=== PATIENT | female | born 1990 | race Caucasian/White ===

== ENCOUNTER 2017-05-20 12:17 | Emergency (ER) | payer MEDICAID, OTHER ==
[2017-05-20 12:38] VITALS: BP 128/79
[2017-05-20] MEDS ORDERED: LIDOCAINE 1% INJ-PF (10 MG/ML) 30 ML SDV NEB ONE (12:58)
[2017-05-20] MEDS ORDERED: LIDOCAINE 5% (700 MG) TRANSDERMAL ADH..PATCH TP ONE (13:01)
--- NOTE | 2017-05-20 13:04 | ER Document Report ---
ED Respiratory Problem - General Chief Complaint: Cough Stated Complaint: COUGH Time Seen by Provider: 05/20/17 12:51 Mode of Arrival: Ambulatory Information source: Patient Notes: 27-year-old female presents to ED for painful cough 3 days. She denies any fever. Respirations even and nonlabored it on assessment. She has a history of asthma has been using her albuterol more frequently. She just saw her PCP and was given a steroid shot and is on prednisone at home. TRAVEL OUTSIDE OF THE [place] IN LAST 30 DAYS: No - HPI Patient complains to provider of: Asthma, Cough, Short of breath Onset: Other - 3 days Duration: Continuous, Worse/persistent Quality of pain: Achy, Burning - Back pain Severity: Moderate Pain Level: 3 Context: Hx asthma Cough: Nonproductive Sputum amount: None Associated symptoms: Cough, Hurts to breathe, Muscle spasms - Low back Similar symptoms previously: Yes Recently seen / treated by doctor: Yes - Related Data Allergies/Adverse Reactions: latex [Latex] Allergy (Severe, Verified 11/10/12 21:42) Shellfish * [Shellfish] Allergy (Severe, Verified 11/10/12 21:42) Home Medications: Current Home Medications Beclomethasone Dipropionate [Qvar] 2 puff IH BID 05/20/17 [History] Past Medical History - General Information source: Patient - Social History Smoking Status: Never Smoker Cigarette use (# per day): No Chew tobacco use (# tins/day): No Smoking Education Provided: No Frequency of alcohol use: None Drug Abuse: None 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 denies: Arthritis, CAD, COPD, CVA, Hyperlipidemia, Malignancy Patient has suicidal ideation: No Patient has homicidal ideation: No - Past Medical History Cardiac Medical History: Reports: None Pulmonary Medical History: Reports: Hx Asthma EENT Medical History: Reports: None Neurological Medical History: Reports: None Endocrine Medical History: Reports: None Renal/ Medical History: Reports: None Malignancy Medical History: Reports: None GI Medical History: Reports: None Musculoskeltal Medical History: Reports Hx Musculoskeletal Trauma Skin Medical History: Reports Hx MRSA - arm Psychiatric Medical History: Reports: None Traumatic Medical History: Reports: None Infectious Medical History: Reports: Hx MRSA Past Surgical History: Reports: Hx Dilation and Curettage - Immunizations Immunizations up to date: Yes Hx Diphtheria, Pertussis, Tetanus Vaccination: Yes Review of Systems - Review of Systems Constitutional: No symptoms reported EENT: No symptoms reported Cardiovascular: No symptoms reported Respiratory: Cough, Short of breath, Wheezing Gastrointestinal: No symptoms reported Genitourinary: No symptoms reported Female Genitourinary: No symptoms reported Musculoskeletal: No symptoms reported Skin: No symptoms reported Hematologic/Lymphatic: No symptoms reported Neurological/Psychological: No symptoms reported -: Yes All other systems reviewed and negative Physical Exam - Vital signs Vitals: Temp Pulse Resp BP Pulse Ox 98.4 F 111 H 20 128/79 H 98 05/20/17 12:33 05/20/17 12:33 05/20/17 12:33 05/20/17 12:33 05/20/17 12:33 Interpretation: Normal - General General appearance: Appears well, Alert - HEENT Head: Normocephalic, Atraumatic Eyes: Normal Pupils: PERRL - Respiratory Respiratory status: No respiratory distress Chest status: Nontender Breath sounds: Normal, Nonproductive cough Chest palpation: Normal - Cardiovascular Rhythm: Regular Heart sounds: Normal auscultation Murmur: No - Abdominal Inspection: Normal Distension: No distension Bowel sounds: Normal Tenderness: Nontender Organomegaly: No organomegaly - Back Back: Normal, Nontender - Extremities General upper extremity: Normal inspection, Nontender, Normal color, Normal ROM , Normal temperature General lower extremity: Normal inspection, Nontender, Normal color, Normal ROM , Normal temperature, Normal weight bearing. No: Kofi's sign - Neurological Neuro grossly intact: Yes Cognition: Normal Orientation: AAOx4 Genoveva Coma Scale Eye Opening: Spontaneous [place] Coma Scale Verbal: Oriented [place] Coma Scale Motor: Obeys Commands [place] Coma Scale Total: 15 Speech: Normal Motor strength normal: LUE, RUE, LLE, RLE Sensory: Normal - Psychological Associated symptoms: Normal affect, Normal mood - Skin Skin Temperature: Warm Skin Moisture: Dry Skin Color: Normal Course - Re-evaluation Re-evalutation: 05/20/17 21:13 X-ray discussed with patient patient was treated with lidocaine nebulizer for her and Lidoderm patch for her back pain. Patient discharged home instructions to use Aspercreme to her back pain. She was discharged home with a Tessalon Perles prescription for her cough. - Vital Signs Vital signs: Temp Pulse Resp BP Pulse Ox 98.4 F 111 H 20 128/79 H 98 05/20/17 12:33 05/20/17 12:33 05/20/17 12:33 05/20/17 12:33 05/20/17 12:33 - Diagnostic Test Radiology reviewed: Image reviewed, Reports reviewed Discharge - Discharge Clinical Impression: Cough Condition: Stable Disposition: HOME, SELF-CARE Additional Instructions: You were seen today for a cough that is painful. We given lidocaine nebulizer in the emergency room and she stated it helped while it was running. Tessalon Perles You have received a prescription for Tessalon Perles (benzonatate). This is a non-narcotic medicine for relief of cough. It usually works in about 15- 20 minutes and lasts around four hours. Tessalon Perles should be swallowed. They should not be chewed or dissolved in the mouth (this can produce temporary numbing of the mouth and choking can occur). If you develop any adverse effects such as wheezing, shortness of breath, hives, rash, itching, or lightheadedness, please return at once. FOLLOW-UP CARE: If you have been referred to a physician for follow-up care, call the physician s office for an appointment as you were instructed or within the next two days. If you experience worsening or a significant change in your symptoms, notify the physician immediately or return to the Emergency Department at any time for re-evaluation. Prescriptions: Benzonatate [Tessalon Perle 100 mg Capsule] 100 mg PO Q8HP PRN #20 cap PRN Reason: Forms: Elevated Blood Pressure, Return to Work Referrals: HUGO NAVA MD [Primary Care Provider] - Follow up as needed
--- NOTE | 2017-05-20 13:58 | RADIOLOGY REPORT (SQ) ---
EXAM DESCRIPTION: CHEST PA/LAT COMPLETED DATE/TIME: 05/20/2017 1:49 pm REASON FOR STUDY: cough COMPARISON: 06/15/2012 EXAM PARAMETERS: NUMBER OF VIEWS: two views TECHNIQUE: Digital Frontal and Lateral radiographic views of the chest acquired. RADIATION DOSE: NA LIMITATIONS: none FINDINGS: LUNGS AND PLEURA: No opacities, masses or pneumothorax. No pleural effusion. MEDIASTINUM AND HILAR STRUCTURES: No masses or contour abnormalities. HEART AND VASCULAR STRUCTURES: Heart normal size. No evidence for failure. BONES: No acute findings. HARDWARE: None in the chest. OTHER: No other significant finding. IMPRESSION: NO SIGNIFICANT RADIOGRAPHIC FINDING IN THE CHEST. TECHNICAL DOCUMENTATION: JOB ID: [id number] [employer]- All Rights Reserved
== END 2017-05-20 15:45 | disposition home or self-care (01) ==
LOC: ER 12:17
DX: R05 Cough (principal); J45.909 Unspecified asthma, uncomplicated; R06.02 Shortness of breath; R07.1 Chest pain on breathing; M62.830 Muscle spasm of back; M54.9 Dorsalgia, unspecified; Z91.040 Latex allergy status; Z91.013 Allergy to seafood; Z86.14 Personal history of Methicillin resistant Staphylococcus aureus infection
CPT/HCPCS: 99283; 71020; J3490 ×2

== ENCOUNTER 2018-01-19 11:17 | Emergency (ER) | payer MEDICAID, OTHER ==
[2018-01-19] MEDS ORDERED: DEXAMETHASONE SOD PHOS INJ 10 MG/1 ML VIAL IM ONE (12:36)
[2018-01-19] MEDS ORDERED: KETOROLAC TROMETHAMINE 60 MG/2 ML SDV IM ONE (12:36)
--- NOTE | 2018-01-19 12:40 | ER Document Report ---
ED Neck/Back Problem - General Chief Complaint: Low Back Pain Stated Complaint: BACK INJURY Time Seen by Provider: 01/19/18 12:06 Mode of Arrival: Ambulatory Information source: Patient Notes: 28-year-old female presents to ED for complaint of back to her lower back. She states it is been hurting for about 3 days. 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 She states her pain radiates down both legs worse on the right with pain to SI joint. Patient is able to walk with the even steady gait. Pupils equal react to light answers in full sentences no acute distress except for when she tries to get up and down. She denies any saddle anesthesia or loss control of bowel bladder loss of sensation or control of lower extremities. She states the pain is down both legs but right now is worse on the right TRAVEL OUTSIDE OF THE [place] 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 was demonstrating when she was tumbling when she injured herself Onset: Sudden Timing: Still present Quality of pain: Sharp, Throbbing Severity: Moderate Pain Level: 4 Context: Fall/near-fall - Landing on her coccyx Recent injury: Yes Associated symptoms: Lower back pain - Pain worse normal Exacerbated by: Movement of trunk - Related Data Allergies/Adverse Reactions: latex [Latex] Allergy (Severe, Verified 01/19/18 11:20) Shellfish * [Shellfish] Allergy (Severe, Verified 01/19/18 11:20) Past Medical History - General Information source: Patient - Social History Smoking Status: Never Smoker Cigarette use (# per day): No Chew tobacco use (# tins/day): No Smoking Education Provided: No Frequency of alcohol use: None Drug Abuse: None 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 denies: Arthritis, CAD, COPD, CVA, Hyperlipidemia, Malignancy Patient has suicidal ideation: No Patient has homicidal ideation: No - Medical History Medical History: Negative - Past Medical History Cardiac Medical History: Reports: None Pulmonary Medical History: Reports: Hx Asthma EENT Medical History: Reports: None Neurological Medical History: Reports: None Endocrine Medical History: Reports: None Renal/ Medical History: Reports: None Malignancy Medical History: Reports: None GI Medical History: Reports: None Musculoskeltal Medical History: Reports Hx Musculoskeletal Deformity, Reports Hx Musculoskeletal Trauma Skin Medical History: Reports None, Reports Hx MRSA - arm Psychiatric Medical History: Reports: None Traumatic Medical History: Reports: None Infectious Medical History: Reports: Hx MRSA Past Surgical History: Reports: Hx Dilation and Curettage, Hx Gynecologic Surgery - D&C - Immunizations Immunizations up to date: Yes Hx Diphtheria, Pertussis, Tetanus Vaccination: Yes Review of Systems - Review of Systems Constitutional: No symptoms reported EENT: No symptoms reported Cardiovascular: No symptoms reported Respiratory: No symptoms reported Gastrointestinal: No symptoms reported Genitourinary: No symptoms reported Female Genitourinary: No symptoms reported Musculoskeletal: Back pain, Muscle pain, Muscle stiffness Skin: No symptoms reported Hematologic/Lymphatic: No symptoms reported Neurological/Psychological: No symptoms reported -: Yes All other systems reviewed and negative Physical Exam - Vital signs Vitals: Temp Pulse Resp BP Pulse Ox 97.7 F 100 14 114/69 99 01/19/18 11:22 01/19/18 11:22 01/19/18 11:22 01/19/18 11:22 01/19/18 11:22 Interpretation: Normal - General General appearance: Appears well, Alert - HEENT Head: Normocephalic, Atraumatic Eyes: Normal Pupils: PERRL - Respiratory Respiratory status: No respiratory distress Chest status: Nontender Breath sounds: Normal Chest palpation: Normal - Cardiovascular Rhythm: Regular Heart sounds: Normal auscultation Murmur: No - Abdominal Inspection: Normal Distension: No distension Bowel sounds: Normal Tenderness: Nontender Organomegaly: No organomegaly - Back Back: Normal, Tender, Vertebra tenderness, Other - Pain worse at right SI joint. No: Deformity/step-off, CVA tenderness, Scars, Scoliosis, Wounds Notes: Denies loss of control of bowel or bladder denies saddle anesthesia denies loss of control of lower extremities or loss of sensation to lower extremities. - Extremities General upper extremity: Normal inspection, Nontender, Normal color, Normal ROM , Normal temperature General lower extremity: Normal inspection, Nontender, Normal color, Normal ROM , Normal temperature, Normal weight bearing. No: Kofi's sign - Neurological Neuro grossly intact: Yes Cognition: Normal Orientation: AAOx4 Shirley Coma Scale Eye Opening: Spontaneous Shirley Coma Scale Verbal: Oriented Shirley Coma Scale Motor: Obeys Commands Genoveva Coma Scale Total: 15 Speech: Normal Motor strength normal: LUE, RUE, LLE, RLE Sensory: Normal - Psychological Associated symptoms: Normal affect, Normal mood - Skin Skin Temperature: Warm Skin Moisture: Dry Skin Color: Normal Course - Re-evaluation Re-evalutation: 01/19/18 14:44 X-ray shows scoliosis and mild degenerative disc disease. A written report of the x-ray was given to patient to follow-up with her primary doctor [facility]. She was instructed to please have them treatment command a back specialist for her back pain as she is medicated needs to go through her primary doctor. She was treated with Toradol Decadron in the emergency room and will be given a Lidoderm patch in the emergency room. She was also instructed on use of Aspercreme at home. She was given instructions on ice and warm packs and back exercises for her back pain. - Vital Signs Vital signs: Temp Pulse Resp BP Pulse Ox 98.8 F 83 16 104/67 97 01/19/18 15:12 01/19/18 15:12 01/19/18 15:12 01/19/18 15:12 01/19/18 15:12 - Diagnostic Test Radiology reviewed: Image reviewed, Reports reviewed Discharge - Discharge Clinical Impression: Low back pain Qualifiers: Chronicity: acute Back pain laterality: bilateral Sciatica presence: with sciatica Sciatica laterality: sciatica of right side Qualified Code(s): M54.41 - Lumbago with sciatica, right side Condition: Stable Disposition: HOME, SELF-CARE Additional Instructions: LOW BACK PAIN: Three out of every four people will have an episode of disabling back pain during their lifetime. Most commonly the pain is due to straining of the muscles and ligaments in the low back. Usual treatment includes: (1) Rest on a firm surface. Avoid lying on your stomach. (2) Ice pack the painful area. After a few days, gentle heat may be used intermittently to relax the area, or ice packs can be continued. (3) Medication may be needed -- muscle relaxers and antiinflammatory medicines are commonly used. (4) As the back improves, exercises are prescribed to strengthen the back and abdominal muscles. Your doctor will advise you on the proper care for your back at each stage in your recovery. You may be better in a few days -- or healing may take several weeks. If new symptoms of a "herniated disc" (radiation of pain, numbness, or tingling down the back of the leg or weakness in the leg) occur, you should be re-examined. Further testing may be necessary. Toradol Injection You have been given an injection of ketorolac tromethamine (Toradol). This is an excellent, safe drug for pain control. It also has potent antiinflammatory action. You should have significant pain relief within about one hour. Toradol is not addicting and is non-sedating. It does not interfere with driving or work. Call or return if you develop itching, hives, shortness of breath, or rash. STEROID MEDICATION: You have been given an injection of medicine of the cortisone/steroid class. This medication is used to control inflammation or allergy. It is often continued as a pill for a short period of time, until the acute process subsides. There are usually no side effects from short-term use of cortisone-like medications. Some persons feel an increased sense of well-being and are not sleepy at bedtime. Long-term use of cortisone medications is best avoided, unless required for a severe condition. If your condition does not remit, or relapses after the course of corticosteroid medication, you should consult your physician. Stretching Exercises for the Back The physician has recommended that you begin stretching exercises for your back. These are often used even while the back is painful. However, you should notify the physician if the activities seem to increase your pain. PELVIC TILT: Lie flat on your back with knees bent. Tighten your stomach and buttock muscles so it flattens your lower back against the floor. Hold 10 seconds. Repeat 10 times, twice daily. KNEE RAISE: Lying on the back with knees bent, raise one knee to your chest, then the other. Hold both knees against the chest 10 seconds, then lower one knee at a time. Repeat 10 times, twice daily. PARTIAL TRUNK RAISE: Lie face down, arms at your sides. Keeping your waist on the floor, use your arms raise your chest up. Support yourself on your elbows for 30 seconds. Repeat twice daily, increasing the time to two minutes as you recover. MUSCLE RELAXERS: Muscle relaxing medications are usually prescribed for acute muscle spasm or injury to the neck and back. They are often combined with antiinflammatory pain medication for increased relief. You may stop the muscle relaxer when the pain and stiffness have improved. Start the medication again if spasms recur. Muscle relaxers may cause drowsiness, especially with the first dose. Do not operate machinery or drive while under the effects of the medication. Most muscle relaxers last up to 24 hours. Do not combine the medication with alcohol. ICE PACKS: Apply ice packs frequently against the painful area. Many different schedules are recommended, such as "20 minutes on, 20 minutes off" or "one hour ice, two hours rest." If you need to work, you may need to go longer between ice treatments. You should plan to have the area ice packed AT LEAST one fourth of the time. The ice should be applied over the wrap, tape, or splint, or over a layer of cloth -- not directly against the skin. Some ice bags have a built-in cloth and can be put directly on the skin. WARM PACKS: After approximately two days, apply gentle heat (such as a heating pad or hot water bottle) for about 20 to 30 minutes about every two hours -- at least four times daily. Warmth and elevation will help you make a more rapid recovery , and will ease the pain considerably. Do not use HOT heat, and never apply heat for longer than 30 minutes. The continuous heat can invisibly damage skin and muscles -- even when no burn is seen on the surface. Damaged muscles can make you MORE sore. FOLLOW-UP CARE: If you have been referred to a physician for follow-up care, call the physician s office for an appointment as you were instructed or within the next two days. If you experience worsening or a significant change in your symptoms, notify the physician immediately or return to the Emergency Department at any time for re-evaluation. Prescriptions: Cyclobenzaprine HCl [Flexeril 10 mg Tablet] 10 mg PO TIDP PRN #15 tab PRN Reason: Forms: Return to Work Referrals: [facility] [Provider Group] - Follow up as needed
[2018-01-19 13:03] LABS: APPEARANCE,URINE CLEAR; BILIRUBIN,URINE NEGATIVE (NEGATIVE); COLOR,URINE COLORLESS; GLUCOSE, URINE NEGATIVE (NEGATIVE); KETONES,URINE NEGATIVE (NEGATIVE); LEUKOCYTE ESTERASE,URINE NEGATIVE (NEGATIVE); NITRITE,URINE NEGATIVE (NEGATIVE); PROTEIN,URINE NEGATIVE (NEGATIVE); URINE SPECIFIC GRAVITY 1.006; UROBILINOGEN,URINE NEGATIVE mg/dL (<2.0)
--- NOTE | 2018-01-19 14:37 | RADIOLOGY REPORT (SQ) ---
EXAM DESCRIPTION: L SPINE WHOLE COMPLETED DATE/TIME: 01/19/2018 1:49 pm REASON FOR STUDY: pain low back radiates legs right SI tenderness COMPARISON: None. NUMBER OF VIEWS: Five views including obliques. TECHNIQUE: AP, lateral, oblique, and sacral radiographic images acquired of the lumbar spine. LIMITATIONS: None. FINDINGS: MINERALIZATION: Normal. SEGMENTATION: Normal. No transitional anatomy. ALIGNMENT: Minimal scoliosis. VERTEBRAE: Maintained height. No fracture or worrisome bone lesion. DISCS: Mild narrowing of the L4-5 and L5-S1 disc spaces. POSTERIOR ELEMENTS: Pedicles and facets are intact. No pars defect or posterior arch defects. HARDWARE: None in the spine. PARASPINAL SOFT TISSUES: Normal. PELVIS: Intact as visualized. No fractures or worrisome bone lesions. SI joints intact. OTHER: No other significant finding. IMPRESSION: Mild scoliosis. Mild degenerative disc changes. TECHNICAL DOCUMENTATION: JOB ID: [id number] [employer]- All Rights Reserved Reading location - IP/workstation name: [email or web address]
[2018-01-19] MEDS ORDERED: LIDOCAINE 5% (700 MG) TRANSDERMAL ADH..PATCH TP ONE (14:45)
[2018-01-19 15:19] VITALS: BP 104/67
== END 2018-01-19 15:19 | disposition home or self-care (01) ==
LOC: ER 11:17
DX: M54.41 Lumbago with sciatica, right side (principal); M79.604 Pain in right leg; M79.605 Pain in left leg; M53.3 Sacrococcygeal disorders, not elsewhere classified; J45.909 Unspecified asthma, uncomplicated
CPT/HCPCS: 99283; 96372; 81025; 81001; 72110; J1885; J3490; J1100

== ENCOUNTER 2018-05-14 07:34 | Day surgery (SDC) | payer MEDICAID ==
[2018-05-14 08:31] LABS: APPEARANCE,URINE SLIGHTLY-CLOUDY; BILIRUBIN,URINE NEGATIVE (NEGATIVE); COLOR,URINE YELLOW; GLUCOSE, URINE NEGATIVE (NEGATIVE); KETONES,URINE NEGATIVE (NEGATIVE); LEUKOCYTE ESTERASE,URINE NEGATIVE (NEGATIVE); NITRITE,URINE NEGATIVE (NEGATIVE); PROTEIN,URINE NEGATIVE (NEGATIVE); URINE SPECIFIC GRAVITY 1.019; UROBILINOGEN,URINE NEGATIVE mg/dL (<2.0)
[2018-05-14 08:53] LABS: HEMATOCRIT 38.5 % (36.0-47.0); HEMOGLOBIN 13.1 g/dL (12.0-15.5); MEAN CORPUSCULAR HEMOGLOBIN 30.7 pg (27.0-33.4); MEAN CORPUSCULAR VOLUME 90 fl (80-97); PLATELET COUNT 189 10^3/uL (150-450); RED BLOOD COUNT 4.27 10^6/uL (3.72-5.28); RED CELL DISTRIBUTION WIDTH 12.5 % (11.5-14.0); WHITE BLOOD COUNT 6.5 10^3/uL (4.0-10.5)
[2018-05-14] MEDS ORDERED: FAMOTIDINE INJ/PF 20 MG/2 ML SDV IV ONE (09:30)
[2018-05-14] MEDS ORDERED: METOCLOPRAMIDE HCL INJ/PF 10 MG/2 ML SDV ONE (09:30)
[2018-05-14] MEDS ORDERED: MIDAZOLAM 2 MG/2 ML INJ ONE ×2 (09:30→10:37)
[2018-05-14] MEDS ORDERED: ALBUTEROL SULFATE 0.083% NEB 2.5 MG/3 ML AMPUL NEB ONE (09:30)
[2018-05-14] MEDS ORDERED: ONDANSETRON HCL INJ/PF 4 MG/2 ML SDV IV PRN (10:07)
[2018-05-14] MEDS ORDERED: MORPHINE SULFATE 10 MG/ML INJ IV PRN (10:07)
[2018-05-14] MEDS ORDERED: PROMETHAZINE HCL INJ 25 MG/1 ML VIAL IV PRN ×2 (10:07)
[2018-05-14] MEDS ORDERED: FENTANYL CITRATE INJ/PF 100 MCG/2 ML AMPUL IV PRN ×3 (10:07)
[2018-05-14] MEDS ORDERED: DIPHENHYDRAMINE HCL 50 MG/ML VIAL IV PRN (10:07)
[2018-05-14] MEDS ORDERED: MEPERIDINE HCL/PF INJ 25 MG/1 ML DISP.SYRIN IV PRN (10:07)
[2018-05-14] MEDS ORDERED: ONDANSETRON HCL INJ/PF 4 MG/2 ML SDV ONE (10:37)
[2018-05-14] MEDS ORDERED: PROPOFOL INJ 200 MG/20 ML VIAL IV ONE (10:37)
[2018-05-14] MEDS ORDERED: LIDOCAINE 2% INJ-PF (100 MG/5 ML) SYRINGE ONE (10:37)
[2018-05-14] MEDS ORDERED: FENTANYL CITRATE INJ/PF 100 MCG/2 ML AMPUL ONE (10:37)
--- NOTE | 2018-05-14 11:21 | Operative Report ---
Operative Report DATE OF SURGERY: 05/14/18 PREOPERATIVE DIAGNOSIS: Missed AB POSTOPERATIVE DIAGNOSIS: Same OPERATION: Suction D&C SURGEON: NENO VAUGHN ANESTHESIA: GA TISSUE REMOVED OR ALTERED: Uterine contents COMPLICATIONS: None ESTIMATED BLOOD LOSS: 50 cc INTRAOPERATIVE FINDINGS: Sound to 9 cm before the case and 7 cm after the case PROCEDURE: Patient was taken the OR and placed in supine position. General anesthesia was induced. She is placed in dorsolithotomy position using Rodriguez stirrups. Her perineum and vagina were prepared and draped in sterile fashion. Her bladder was drained with a red rubber catheter. A weighted speculum was placed in the anterior lip cervix grasped with a tenaculum. The cervix was sounded to 9 cm before the case and 7 cm after the case. Cervix was easily dilated and size 10 suction curette was used to evacuate the uterine contents. A gentle sharp curettage at the end of the case revealed no return no retained products. All instruments were removed. She is placed back in supine position taken recovery in stable condition. The specimen is sent fresh to pathology for chromosomes.
[2018-05-14] MEDS ORDERED: RINGERS SOLUTION,LACTATED 1,000 ML IV PRN (11:30)
[2018-05-14] MEDS ORDERED: OXYCODONE-ACETAMINOPHEN 5-325 MG TABLET PO PRN ×2 (11:31→12:00)
[2018-05-14] MEDS ORDERED: KETOROLAC TROMETHAMINE INJ/PF 30 MG/1 ML SDV IV PRN (12:00)
[2018-05-14] MEDS ORDERED: IBUPROFEN 800 MG TABLET PO PRN (12:00)
[2018-05-14 13:13] VITALS: BP 110/62
== END 2018-05-14 13:10 | disposition home or self-care (01) ==
LOC: OROUT 07:34
PROVIDERS: ATTEND Obstetrics & Gynecology
DX: O02.1 Missed abortion (principal); J45.909 Unspecified asthma, uncomplicated
CPT/HCPCS: 86900; 86901; 36415; 86850; 85027; 81001; 88233; 88262; 88305 ×2; 59820; J2790; J2250; J3010; J2001; J2765; J2405; J2704; S0028; 1965

== ENCOUNTER 2018-08-14 10:59 | Inpatient (IN) | payer MEDICAID ==
[2018-08-14] MEDS ORDERED: NORMAL SALINE 1000 ML 1,000 ML IV ONE (11:05)
[2018-08-14] MEDS ORDERED: DIPHENHYDRAMINE HCL 50 MG/ML VIAL ONE (11:05)
[2018-08-14] MEDS ORDERED: EPINEPHRINE INJ/PF 1 MG/1 ML AMPULE SUBCUT ONE (11:05)
[2018-08-14] MEDS ORDERED: METHYLPREDNISOLONE INJ 125 MG/2 ML SDV IV ONE (11:05)
[2018-08-14] MEDS ORDERED: DIPHENHYDRAMINE HCL 50 MG/ML VIAL IV ONE (11:05)
[2018-08-14] MEDS ORDERED: FAMOTIDINE INJ/PF 20 MG/2 ML SDV IV ONE ×2 (11:05→11:06)
[2018-08-14] MEDS ORDERED: EPINEPHRINE INJ/PF 1 MG/1 ML AMPULE ONE (11:06)
[2018-08-14] MEDS ORDERED: METHYLPREDNISOLONE INJ 125 MG/2 ML SDV ONE (11:06)
[2018-08-14] MEDS ORDERED: RACEPINEPHRINE HCL 2.25% NEB 0.5 ML AMPUL NEB ONE ×2 (11:09)
[2018-08-14] MEDS ORDERED: DEXTROSE 5%-WATER 250 ML with EPINEPHRINE/PF 1 MG IV PRN ×4 (12:38→15:15)
[2018-08-14 12:48] LABS: ABSOLUTE BASOPHILS # (AUTO) 0.1 10^3/uL (0.0-0.2); ABSOLUTE LYMPHOCYTES (AUTO) 3.3 10^3/uL (0.5-4.7); ABSOLUTE NEUT (AUTO) 14.2 10^3/uL (1.7-8.2); BASOPHILS % (AUTO) 0.3 % (0-2); EOSINOPHILS % (AUTO) 0.1 % (0-6); HEMATOCRIT 40.2 % (36.0-47.0); HEMOGLOBIN 13.5 g/dL (12.0-15.5); LYMPHOCYTES % (AUTO) 17.7 % (13-45); MEAN CORPUSCULAR HEMOGLOBIN 30.4 pg (27.0-33.4); MEAN CORPUSCULAR HGB CONC 33.6 g/dL (32.0-36.0); MEAN CORPUSCULAR VOLUME 91 fl (80-97); MONOCYTES % (AUTO) 5.5 % (3-13); PLATELET COUNT 279 10^3/uL (150-450); RED BLOOD COUNT 4.44 10^6/uL (3.72-5.28); RED CELL DISTRIBUTION WIDTH 13.2 % (11.5-14.0); SEGMENTED NEUTROPHILS % (AUTO) 76.4 % (42-78); TOTAL CELLS COUNTED % (AUTO) 100 %; WHITE BLOOD COUNT 18.6 10^3/uL (4.0-10.5)
[2018-08-14 13:20] LABS: ALANINE AMINOTRANSFERASE 68 U/L (9-52); ALBUMIN 4.7 g/dL (3.5-5.0); ALKALINE PHOSPHATASE 56 U/L (38-126); ANION GAP 12 (5-19); ASPARTATE AMINO TRANSFERASE 216 U/L (14-36); BILIRUBIN,DIRECT 0.2 mg/dL (0.0-0.4); BILIRUBIN,TOTAL 0.5 mg/dL (0.2-1.3); BLOOD UREA NITROGEN 14 mg/dL (7-20); CALCIUM 10.2 mg/dL (8.4-10.2); CARBON DIOXIDE 29 mmol/L (22-30); CHLORIDE 103 mmol/L (98-107); GLUCOSE 90 mg/dL (75-110); POTASSIUM 3.8 mmol/L (3.6-5.0); SODIUM 143.9 mmol/L (137-145); TOTAL PROTEIN 7.4 g/dL (6.3-8.2)
--- NOTE | 2018-08-14 13:20 | ER Document Report ---
ED Allergic Reaction - General Chief Complaint: Allergic Reaction Stated Complaint: POSSIBLE ALLERGIC REACTION Time Seen by Provider: 08/14/18 11:02 Notes: 's a 28-year-old female presents emergency department with chief complaint of hives, difficulty breathing. Patient was seen last night. Received multiple rounds of epinephrine. Began noticing this morning that symptoms were coming back. Began having tightness in her throat. Wheezing. Hives broke out all over her body again. Hives on her chest, back, arms and legs. Last night she had swelling of the uvula. Received multiple rounds of epinephrine, steroids, Benadryl and Pepcid. Has a scratchy throat and hurts to swallow. TRAVEL OUTSIDE OF THE [place] IN LAST 30 DAYS: No - HPI Onset: Just prior to arrival - Related Data Allergies/Adverse Reactions: latex [Latex] Allergy (Severe, Verified 08/14/18 11:00) Shellfish * [Shellfish] Allergy (Severe, Verified 08/14/18 11:00) Past Medical History - General Information source: Patient - Social History Smoking Status: Never Smoker Cigarette use (# per day): No Frequency of alcohol use: None Drug Abuse: None Lives with: Spouse/Significant other Family History: DM, Hypertension, Thyroid Disfunction Patient has suicidal ideation: No Patient has homicidal ideation: No - Past Medical History Cardiac Medical History: Denies: Hx Coronary Artery Disease, Hx Heart Attack, Hx Hypertension Pulmonary Medical History: Reports: Hx Asthma Denies: Hx Bronchitis, Hx COPD, Hx Pneumonia Neurological Medical History: Denies: Hx Cerebrovascular Accident, Hx Seizures Renal/ Medical History: Denies: Hx Peritoneal Dialysis Musculoskeletal Medical History: Reports Hx Arthritis - BACK, Reports Hx Musculoskeletal Deformity, Reports Hx Musculoskeletal Trauma Skin Medical History: Reports Hx MRSA - arm Infectious Medical History: Reports: Hx MRSA Past Surgical History: Reports: Hx Dilation and Curettage, Hx Gynecologic Surgery - D&C - Immunizations Immunizations up to date: Yes Hx Diphtheria, Pertussis, Tetanus Vaccination: - UNSURE Review of Systems - Review of Systems Notes: Constitutional: denies: Chills, Diaphoresis, Fever, Malaise, Weakness EENT: denies: Eye discharge, Blurred vision, Tearing, Double vision, Nose congestion, Nose discharge, Mouth pain. Throat swelling Cardiovascular: denies: Orthopnea, Dyspnea, Chest pain. Has tachycardia Respiratory: Has a cough, hurts to breathe, mild wheeze. Gastrointestinal: denies: Abdominal pain, Diarrhea, Nausea, Vomiting, Black stools, bright red blood in stool Genitourinary: denies: Burning, Dysuria, Discharge, Frequency, Flank pain, Hematuria Musculoskeletal: denies: Joint pain, Joint swelling, Muscle pain, Muscle stiffness, back pain Hematologic/Lymphatic: denies: Anemia, Easy bleeding, Easy bruising, Blood clots Neurological/Psychological: denies: Confusion, Dementia, Depression, Loss of consciousness Skin: Patient has diffuse urticarial hives with itching all over. Physical Exam - Vital signs Vitals: Pulse Pulse Ox 150 H 86 L 08/14/18 11:02 08/14/18 11:02 Interpretation: Tachycardic, Tachypneic - Notes Notes: Uncomfortable appearing, scared - General General appearance: Appears well, Alert - HEENT Head: Normocephalic, Atraumatic Eyes: Normal Pupils: PERRL Notes: No obvious swelling of the tongue, lips. No uvular edema at this time. - Respiratory Respiratory status: Tachypnea, Other - Mild respiratory distress Chest status: Nontender Breath sounds: Wheezing Chest palpation: Normal - Cardiovascular Rhythm: Tachycardia Heart sounds: Normal auscultation Murmur: No - Abdominal Inspection: Normal Distension: No distension Bowel sounds: Normal Tenderness: Nontender Organomegaly: No organomegaly - Back Back: Normal, Nontender - Extremities General upper extremity: Normal inspection, Nontender, Normal color, Normal ROM , Normal temperature General lower extremity: Normal inspection, Nontender, Normal color, Normal ROM , Normal temperature, Normal weight bearing. No: Kofi's sign - Neurological Neuro grossly intact: Yes Cognition: Normal Orientation: AAOx4 Genoveva Coma Scale Eye Opening: Spontaneous Genoveva Coma Scale Verbal: Oriented Genoveva Coma Scale Motor: Obeys Commands Genoveva Coma Scale Total: 15 Speech: Normal Motor strength normal: LUE, RUE, LLE, RLE Sensory: Normal - Psychological Associated symptoms: Normal affect, Normal mood - Skin Skin Temperature: Warm Skin Moisture: Dry Skin Color: Other - Has diffuse urticarial hives on arms, back, legs, chest. Course - Re-evaluation Re-evalutation: 08/14/18 13:18 Patient with difficulty with breathing with tachycardia and diffuse urticaria or hives. Was treated with epinephrine in the last 24 hours. Patient given immediate epinephrine on arrival including Solu-Medrol, Pepcid and Benadryl. Had improvement in symptoms however within the hour patient was beginning to have more hives again. Patient was started on epinephrine drip. Uncomfortable discharging at this time. Patient needs to be monitored in a setting for airway protection. Currently patient is protecting her airway. Oxygen saturations are 100% on room air. Will get labs, x-ray of the chest and neck and will consult with hospitalist for ICU admission 08/14/18 13:23 Laboratory 08/14/18 08/14/18 08/14/18 11:07 11:07 11:07 WBC 18.6 H RBC 4.44 Hgb 13.5 Hct 40.2 MCV 91 MCH 30.4 MCHC 33.6 RDW 13.2 Plt Count 279 Seg Neutrophils % 76.4 Lymphocytes % 17.7 Monocytes % 5.5 Eosinophils % 0.1 Basophils % 0.3 Absolute Neutrophils 14.2 H Absolute Lymphocytes 3.3 Absolute Monocytes 1.0 Absolute Eosinophils 0.0 Absolute Basophils 0.1 Sodium Cancelled 143.9 Potassium Cancelled 3.8 Chloride Cancelled 103 Carbon Dioxide Cancelled 29 Anion Gap Cancelled 12 BUN Cancelled 14 Creatinine Cancelled 0.81 Est GFR ( Amer) Cancelled > 60 Est GFR (Non-Af Amer) Cancelled > 60 Glucose Cancelled 90 Calcium Cancelled 10.2 Total Bilirubin 0.5 Direct Bilirubin 0.2 Neonat Total Bilirubin Not Reportable Neonat Direct Bilirubin Not Reportable Neonat Indirect Bili Not Reportable AST 216 H ALT 68 H Alkaline Phosphatase 56 Total Protein 7.4 Albumin 4.7 08/14/18 13:59 Chest X-Ray 08/14/18 12:41 IMPRESSION: No acute radiographic finding in the chest. Soft Tissue Neck X-Ray 08/14/18 12:42 IMPRESSION: Mild soft tissue swelling at the prevertebral region at C1 level. - Vital Signs Vital signs: Temp Pulse Resp BP Pulse Ox 97.6 F 120 H 35 H 122/73 96 08/14/18 11:10 08/14/18 11:23 08/14/18 13:46 08/14/18 13:46 08/14/18 13:46 - Laboratory Result Diagrams: 08/14/18 11:07 08/14/18 11:07 Laboratory results interpreted by me: 08/14/18 08/14/18 11:07 11:07 WBC 18.6 H Absolute Neutrophils 14.2 H AST 216 H ALT 68 H - EKG Interpretation by Me EKG shows normal: [place], Intervals, QRS Complexes, ST-T Waves Rate: Tachycardia Critical Care Note - Critical Care Note Total time excluding time spent on procedures (mins): 45 Comments: Tachycardia, anaphylaxis Discharge - Discharge Clinical Impression: Acute anaphylaxis Qualifiers: Encounter type: subsequent encounter Qualified Code(s): T78.2XXD - Anaphylactic shock, unspecified, subsequent encounter Condition: Good Disposition: ADMITTED INPATIENT Admitting Provider: Hospitalist - [facility] Unit Admitted: ICU -
[2018-08-14] MEDS ORDERED: IPRATROPIUM/ALBUTEROL 0.5-2.5 MG/3 ML AMPUL NEB PRN (13:21)
[2018-08-14] MEDS ORDERED: METHYLPREDNISOLONE INJ 40 MG/1 ML SDV IV SCH (13:30)
--- NOTE | 2018-08-14 13:31 | RADIOLOGY REPORT (SQ) ---
EXAM DESCRIPTION: SOFT TISSUE NECK COMPLETED DATE/TIME: 08/14/2018 1:01 pm REASON FOR STUDY: allergic rxn COMPARISON: None. NUMBER OF VIEWS: Two views. TECHNIQUE: AP and lateral radiographic image of the soft tissues of the neck. LIMITATIONS: None. FINDINGS: EPIGLOTTIS: Contour normal. PREVERTEBRAL SOFT TISSUES: There is mild soft tissue swelling at the prevertebral region at C1 level. SUBGLOTTIC AREA: No narrowing. BONES: No significant findings. LUNG APICES: No acute findings. OTHER: No radiopaque foreign body. IMPRESSION: Mild soft tissue swelling at the prevertebral region at C1 level. TECHNICAL DOCUMENTATION: JOB ID: [id number] 2010 [employer]- All Rights Reserved Reading location - IP/workstation name: [email or web address]
--- NOTE | 2018-08-14 13:33 | RADIOLOGY REPORT (SQ) ---
EXAM DESCRIPTION: CHEST SINGLE VIEW COMPLETED DATE/TIME: 08/14/2018 1:01 pm REASON FOR STUDY: sob COMPARISON: Chest x-ray 08/21/2017. EXAM PARAMETERS: NUMBER OF VIEWS: One view. TECHNIQUE: Single frontal radiographic view of the chest acquired. RADIATION DOSE: NA LIMITATIONS: None. FINDINGS: LUNGS AND PLEURA: No consolidation, pneumothorax or pleural effusion. MEDIASTINUM AND HILAR STRUCTURES: No masses. Contour normal. HEART AND VASCULAR STRUCTURES: Heart normal in size. Normal vasculature. BONES: No acute findings. HARDWARE: None in the chest. IMPRESSION: No acute radiographic finding in the chest. TECHNICAL DOCUMENTATION: JOB ID: [id number] 2010 [employer]- All Rights Reserved Reading location - IP/workstation name: [email or web address]
--- NOTE | 2018-08-14 14:29 | EKG REPORT ---
SEVERITY:- OTHERWISE NORMAL ECG - SINUS TACHYCARDIA : Confirmed by: Daryn Scanlon 14-Aug-2018 14:27:50
--- NOTE | 2018-08-14 16:27 | PDOC H&P ---
History of Present Illness Admission Date/PCP: 08/14/18 13:41 CAMACHO BENNETT Patient complains of: SOB, rashes History of Present Illness: WESLEY CALDERA is a 28 year old female with a past medical history of latex and shelffish allergy and history of asthma who presented with increasing SOB and rashes. Patient went to the ER last night after developing generalized urticarial rashes and SOB. She was given IV steroids and diphenhydramine in the ER last night and was discharged home. She says the rashes resolved but she had recurrence of similar symptoms early this morning with more urticarial rashes now spreading from the abdomen up to her legs and feet. She denies recent intake of any seafood nor contact with Latex. She denies taking any new medication. She does say the only recent activity she had was having her hair color dyed at a hair salon. Upon arrival in the ER, she had significant wheezing and was hypoxic at 86% on room air. She was initially hypertensive but her pressured did drop to the 90/ 50s. She was given IV solumedrol, diphenhydramine, pepcid, racemic and SQ epinephrine. She did get some relief but had continued itchiness and rashes. She was started on epinephrine drip in the ER. Past Medical History Cardiac Medical History: Denies: Coronary Artery Disease, Myocardial Infarction, Hypertension Pulmonary Medical History: Reports: Asthma Denies: Bronchitis, Chronic Obstructive Pulmonary Disease (COPD), Pneumonia Neurological Medical History: Denies: Seizures Musculoskeltal Medical History: Reports: Arthritis - BACK Hematology: Reports: Anemia Infectious Medical History: Reports: Methicillin-Resistant Staph Aureus Social History Lives with: Spouse/Significant other Smoking Status: Never Smoker - Advance Directive Resuscitation Status: Full Code Family History Family History: DM, Hypertension, Thyroid Disfunction Parental Family History Reviewed: Yes - no premature CAD Children Family History Reviewed: No Sibling(s) Family History Reviewed.: No Medication/Allergy Home Medications: Albuterol Sulfate [Proair HFA] 2 puff IH Q4 PRN 05/13/18 Cetirizine HCl [Zyrtec 10 mg Tablet] 1 tab PO DAILY PRN 08/14/18 Allergies/Adverse Reactions: latex [Latex] Allergy (Severe, Verified 08/14/18 11:00) Shellfish * [Shellfish] Allergy (Severe, Verified 08/14/18 11:00) Review of Systems All systems: reviewed and no additional remarkable complaints except as stated - as mentioned in HPI Physical Exam Vital Signs: Temp Pulse Resp BP Pulse Ox 98.9 F 104 H 17 122/70 97 08/14/18 14:19 08/14/18 14:58 08/14/18 14:55 08/14/18 14:19 08/14/18 14:55 Intake & Output 08/13/18 08/14/18 08/15/18 06:59 06:59 06:59 Intake Total 4 Balance 4 Weight 177 lb 4.026 oz General appearance: PRESENT: no acute distress, well-developed, well-nourished Head exam: PRESENT: atraumatic, normocephalic Eye exam: PRESENT: conjunctiva pink, EOMI, PERRLA. ABSENT: scleral icterus Ear exam: PRESENT: normal external ear exam Mouth exam: PRESENT: moist, tongue midline Neck exam: ABSENT: carotid bruit, JVD, lymphadenopathy, thyromegaly Respiratory exam: PRESENT: clear to auscultation [place]. ABSENT: rales, rhonchi, wheezes Cardiovascular exam: PRESENT: RRR. ABSENT: diastolic murmur, rubs, systolic murmur Pulses: PRESENT: normal dorsalis pedis pul GI/Abdominal exam: PRESENT: normal bowel sounds, soft. ABSENT: distended, guarding, mass, organolmegaly, rebound, tenderness Rectal exam: PRESENT: deferred Neurological exam: PRESENT: alert, awake, oriented to person, oriented to place , oriented to time, oriented to situation, CN II-XII grossly intact. ABSENT: motor sensory deficit Skin exam: PRESENT: rash - note of multiple urticarial rashes on the abdomen and lower extremities Results Impressions: Chest X-Ray 08/14/18 12:41 IMPRESSION: No acute radiographic finding in the chest. Soft Tissue Neck X-Ray 08/14/18 12:42 IMPRESSION: Mild soft tissue swelling at the prevertebral region at C1 level. Assessment & Plan - Diagnosis (1) Acute anaphylaxis Qualifiers: Encounter type: subsequent encounter Qualified Code(s): T78.2XXD - Anaphylactic shock, unspecified, subsequent encounter Is this a current diagnosis for this admission?: Yes Plan: No known recent trigger aside from exposure to hair dye the other day. Will continue IV solumedrol and IV diphenhydramine. Wean off epinephrine drip tonight. Breathing treatments with duoneb as needed. Patient will be prescribed epi pens and oral steroids upon discharge. - Time Time Spent: 30 to 50 Minutes
[2018-08-14] MEDS: LANSOPRAZOLE 15 MG TAB.RAP.DR PO SCH (17:42)
[2018-08-14] MEDS: HEPARIN SOD (PORCINE) 5,000 UNIT/ML 1 ML SYRINGE SUBCUT SCH (21:55)
[2018-08-14] MEDS: METHYLPREDNISOLONE INJ 125 MG/2 ML SDV IV SCH (21:55)
[2018-08-14] MEDS: DIPHENHYDRAMINE HCL 50 MG/ML VIAL IV SCH (21:55)
[2018-08-15] MEDS: METHYLPREDNISOLONE INJ 125 MG/2 ML SDV IV SCH ×3 (05:38→21:28)
[2018-08-15] MEDS: DIPHENHYDRAMINE HCL 50 MG/ML VIAL IV SCH ×3 (05:39→21:29)
[2018-08-15] MEDS: LANSOPRAZOLE 15 MG TAB.RAP.DR PO SCH ×2 (09:31→18:10)
[2018-08-15] MEDS: HEPARIN SOD (PORCINE) 5,000 UNIT/ML 1 ML SYRINGE SUBCUT SCH ×2 (09:32→21:29)
[2018-08-15] MEDS ORDERED: PREDNISONE 20 MG TABLET PO SCH ×2 (10:00→18:00)
--- NOTE | 2018-08-15 13:34 | PDOC PROGRESS REPORT ---
Subjective Progress Note for:: 08/15/18 Subjective:: WESLEY CALDERA is a 28 year old female with a past medical history of latex and shelffish allergy and history of asthma who was admitted to the ICU for anaphylaxis. She received IV steroids in the ER, diphenhydramine, racemic and SQ epinephrine and was eventually started on epi drip. No acute event overnight. Epinephrine drip was discontinued last night. This morning, she appeared comfortable. She denied SOB, chest tightness or itching. She is saturating well on room air. The urticarial rashes on the legs have resolved and those on the abdomen is almost completely resolved. She was switched to prednisone PO. Upon reassessment around noon time, she complained of recurrence of skin itching. Reason For Visit: ANAPHYLAXIS Physical Exam Vital Signs: Temp Pulse Resp BP Pulse Ox 98.6 F 93 16 105/62 97 08/15/18 12:00 08/15/18 09:00 08/15/18 09:00 08/15/18 07:53 08/15/18 09:00 Intake & Output 08/14/18 08/15/18 08/16/18 06:59 06:59 06:59 Intake Total 43 1000 Output Total 1300 600 Balance -1257 400 Weight 177 lb 4.026 oz General appearance: PRESENT: no acute distress, well-developed, well-nourished Head exam: PRESENT: atraumatic, normocephalic Eye exam: PRESENT: conjunctiva pink, EOMI, PERRLA. ABSENT: scleral icterus Ear exam: PRESENT: normal external ear exam Mouth exam: PRESENT: moist, tongue midline Neck exam: ABSENT: carotid bruit, JVD, lymphadenopathy, thyromegaly Respiratory exam: PRESENT: clear to auscultation [place]. ABSENT: rales, rhonchi, wheezes Cardiovascular exam: PRESENT: RRR. ABSENT: diastolic murmur, rubs, systolic murmur Pulses: PRESENT: normal dorsalis pedis pul GI/Abdominal exam: PRESENT: normal bowel sounds, soft. ABSENT: distended, guarding, mass, organolmegaly, rebound, tenderness Rectal exam: PRESENT: deferred Extremities exam: PRESENT: full ROM. ABSENT: calf tenderness, clubbing, pedal edema Neurological exam: PRESENT: alert, awake, oriented to person, oriented to place , oriented to time, oriented to situation, CN II-XII grossly intact. ABSENT: motor sensory deficit Skin exam: PRESENT: rash - minimal urticarial rashes on the lower abdomen almost resolved compared to yesterday, rashes on the legs and feet have resolved Results Impressions: Chest X-Ray 08/14/18 12:41 IMPRESSION: No acute radiographic finding in the chest. Soft Tissue Neck X-Ray 08/14/18 12:42 IMPRESSION: Mild soft tissue swelling at the prevertebral region at C1 level. Assessment & Plan - Diagnosis (1) Acute anaphylaxis Qualifiers: Encounter type: subsequent encounter Qualified Code(s): T78.2XXD - Anaphylactic shock, unspecified, subsequent encounter Is this a current diagnosis for this admission?: Yes Plan: No known recent trigger aside from exposure to hair dye the other day. Patient does say now that the other day she took a shower and afterwhich she developed flare up of the rashes all over her body. This happened twice although there are no signs of local reaction on the head or scalp. Will have patient's hair washed thoroughly. Switched IV solumedrol to prednisone PO. Continue diphehydramine. Off epinephrine drip. Breathing treatments with duoneb as needed. Patient will be prescribed epi pens and oral steroids upon discharge.
[2018-08-16] MEDS: DIPHENHYDRAMINE HCL 50 MG/ML VIAL IV SCH ×3 (03:02→19:55)
[2018-08-16] MEDS: METHYLPREDNISOLONE INJ 125 MG/2 ML SDV IV SCH (05:38)
[2018-08-16] MEDS ORDERED: DIPHENHYDRAMINE HCL 25 MG CAPSULE PO SCH (08:00)
[2018-08-16 08:40] LABS: ABSOLUTE LYMPHOCYTES (AUTO) 0.9 10^3/uL (0.5-4.7); ABSOLUTE MONOCYTES (AUTO) 0.3 10^3/uL (0.1-1.4); ABSOLUTE NEUT (AUTO) 13.3 10^3/uL (1.7-8.2); BASOPHILS % (AUTO) 0.3 % (0-2); EOSINOPHILS % (AUTO) 0.1 % (0-6); HEMATOCRIT 36.3 % (36.0-47.0); HEMOGLOBIN 12.1 g/dL (12.0-15.5); LYMPHOCYTES % (AUTO) 6.2 % (13-45); MEAN CORPUSCULAR HEMOGLOBIN 30.3 pg (27.0-33.4); MEAN CORPUSCULAR HGB CONC 33.3 g/dL (32.0-36.0); MEAN CORPUSCULAR VOLUME 91 fl (80-97); MONOCYTES % (AUTO) 1.9 % (3-13); PLATELET COUNT 214 10^3/uL (150-450); RED BLOOD COUNT 3.99 10^6/uL (3.72-5.28); RED CELL DISTRIBUTION WIDTH 13.4 % (11.5-14.0); SEGMENTED NEUTROPHILS % (AUTO) 91.5 % (42-78); TOTAL CELLS COUNTED % (AUTO) 100 %; WHITE BLOOD COUNT 14.5 10^3/uL (4.0-10.5)
[2018-08-16] MEDS: HEPARIN SOD (PORCINE) 5,000 UNIT/ML 1 ML SYRINGE SUBCUT SCH ×2 (09:10→21:16)
[2018-08-16] MEDS: LANSOPRAZOLE 15 MG TAB.RAP.DR PO SCH ×2 (09:11→17:06)
[2018-08-16] MEDS ORDERED: PREDNISONE 20 MG TABLET PO SCH (10:00)
[2018-08-16 11:49] LABS: ALANINE AMINOTRANSFERASE 71 U/L (9-52); ALBUMIN 3.9 g/dL (3.5-5.0); ALKALINE PHOSPHATASE 51 U/L (38-126); ANION GAP 13 (5-19); ASPARTATE AMINO TRANSFERASE 79 U/L (14-36); BILIRUBIN,DIRECT 0.3 mg/dL (0.0-0.4); BILIRUBIN,TOTAL 0.6 mg/dL (0.2-1.3); BLOOD UREA NITROGEN 17 mg/dL (7-20); CALCIUM 9.3 mg/dL (8.4-10.2); CARBON DIOXIDE 23 mmol/L (22-30); CHLORIDE 106 mmol/L (98-107); GLUCOSE 150 mg/dL (75-110); POTASSIUM 4.3 mmol/L (3.6-5.0); SODIUM 142.4 mmol/L (137-145); TOTAL PROTEIN 6.5 g/dL (6.3-8.2)
[2018-08-16] MEDS ORDERED: DIPHENHYDRAMINE HCL 50 MG/ML VIAL IV ONE (12:00)
--- NOTE | 2018-08-16 13:32 | PDOC PROGRESS REPORT ---
Subjective Progress Note for:: 08/16/18 Subjective:: WESLEY CALDERA is a 28 year old female with a past medical history of latex and shelffish allergy and history of asthma who was admitted to the ICU for anaphylaxis. She received IV steroids in the ER, diphenhydramine, racemic and SQ epinephrine and was eventually started on epi drip. No acute event overnight. Epinephrine drip was discontinued the other night. Yesterday, patient had recurrence of urticarial rashes, pruritus and throat itchiness when she was switched to oral steroids and oral diphenhydramine. The same thing happened this morning when she she was transitioned to oral meds where there was reappearance of small urticarial lesions on the neck. The rashes on the abdomen and legs have resolved. She denies SOB or chest tightness. Reason For Visit: ANAPHYLAXIS Physical Exam Vital Signs: Temp Pulse Resp BP Pulse Ox 98.9 F 77 16 104/64 98 08/16/18 12:00 08/16/18 12:13 08/16/18 12:13 08/16/18 12:06 08/16/18 12:13 Intake & Output 08/15/18 08/16/18 08/17/18 06:59 06:59 06:59 Intake Total 43 1000 Output Total 1300 600 Balance -1257 400 Weight 177 lb 4.026 oz 176 lb 12.972 oz General appearance: PRESENT: no acute distress, well-developed, well-nourished Head exam: PRESENT: atraumatic, normocephalic Eye exam: PRESENT: conjunctiva pink, EOMI, PERRLA. ABSENT: scleral icterus Ear exam: PRESENT: normal external ear exam Mouth exam: PRESENT: moist, tongue midline Neck exam: ABSENT: carotid bruit, JVD, lymphadenopathy, thyromegaly Respiratory exam: PRESENT: clear to auscultation n[place]. ABSENT: rales, rhonchi, wheezes Cardiovascular exam: PRESENT: RRR. ABSENT: diastolic murmur, rubs, systolic murmur Pulses: PRESENT: normal dorsalis pedis pul GI/Abdominal exam: PRESENT: normal bowel sounds, soft. ABSENT: distended, guarding, mass, organolmegaly, rebound, tenderness Rectal exam: PRESENT: deferred Extremities exam: PRESENT: full ROM. ABSENT: calf tenderness, clubbing, pedal edema Neurological exam: PRESENT: alert, awake, oriented to person, oriented to place , oriented to time, oriented to situation, CN II-XII grossly intact. ABSENT: motor sensory deficit Skin exam: PRESENT: rash - rashes on the abdomen and legs have resolved, she had recurrence of small urticarial lesions on the neck Results Laboratory Results: 08/16/18 08:08 08/16/18 08:08 08/16/18 08/16/18 08:08 08:08 WBC 14.5 H RBC 3.99 Hgb 12.1 Hct 36.3 MCV 91 MCH 30.3 MCHC 33.3 RDW 13.4 Plt Count 214 Seg Neutrophils % 91.5 H Lymphocytes % 6.2 L Monocytes % 1.9 L Eosinophils % 0.1 Basophils % 0.3 Absolute Neutrophils 13.3 H Absolute Lymphocytes 0.9 Absolute Monocytes 0.3 Absolute Eosinophils 0.0 Absolute Basophils 0.0 Sodium 142.4 Potassium 4.3 Chloride 106 Carbon Dioxide 23 Anion Gap 13 BUN 17 Creatinine 0.60 Est GFR ( Amer) > 60 Est GFR (Non-Af Amer) > 60 Glucose 150 H Calcium 9.3 Total Bilirubin 0.6 AST 79 H ALT 71 H Alkaline Phosphatase 51 Total Protein 6.5 Albumin 3.9 Impressions: Chest X-Ray 08/14/18 12:41 IMPRESSION: No acute radiographic finding in the chest. Soft Tissue Neck X-Ray 08/14/18 12:42 IMPRESSION: Mild soft tissue swelling at the prevertebral region at C1 level. Assessment & Plan - Diagnosis (1) Acute anaphylaxis Qualifiers: Encounter type: subsequent encounter Qualified Code(s): T78.2XXD - Anaphylactic shock, unspecified, subsequent encounter Is this a current diagnosis for this admission?: Yes Plan: No known recent trigger aside from exposure to hair dye 2 days prior to admission. Off epinephrine drip. Breathing treatments with duoneb as needed. Switch back to IV steroids and diphenhydramine. Will call [facility] to confer with allergologist for further recommendations. Patient will be prescribed epi pens and oral steroids upon discharge. (2) Elevated liver enzymes Is this a current diagnosis for this admission?: Yes Plan: Patient has elevated liver enzymes AST>ALT. She says she only drinks very occasionally. Elevated histamine during a hypersensitivity reaction can cause elevated liver enzymes but will rule out other causes of transaminitis. Upon requestioning, patient says that when she was in [place] 3 years ago, she was told she has some form of autoimmune disease but could not further elaborate on the details. - Time Time Spent with patient: 25-34 minutes
--- NOTE | 2018-08-16 13:46 | RADIOLOGY REPORT (SQ) ---
EXAM DESCRIPTION: CT SOFT TISSUE NECK WITHOUT COMPLETED DATE/TIME: 08/16/2018 1:30 pm REASON FOR STUDY: further eval of epiglottitis,pre C1 swelling?on XR COMPARISON: None. TECHNIQUE: Noncontrast scanning from skull base through lung apices with review of bone, soft tissue and lung windows. Reconstructed coronal and sagittal MPR images reviewed. All images stored on PAC S. All CT scanners at this facility use dose modulation, iterative reconstruction, and/or weight based d osing when appropriate to reduce radiation dose to as low as reasonably achievable (ALARA). [facility]: Dose Right [facility]: CareDose [facility]: Dose Right [facility]: Teradose 4D [facility]: Aposense RADIATION DOSE: mGy. LIMITATIONS: None. FINDINGS: SKULL BASE: Intact. MAJOR SALIVARY GLANDS: No solid or cystic masses. No inflammatory changes. LYMPHADENOPATHY: No adenopathy. MUCOSAL MASSES OR ASYMMETRY: No mucosal masses or asymmetry. LARYNX/CORDS: No abnormal findings. LUNG APICES: Clear. BONES: Intact. THYROID: Normal size. No masses. PARANASAL SINUSES: Clear. OTHER: No other significant finding. IMPRESSION: NO SIGNIFICANT FINDING IN THE SOFT TISSUES OF THE NECK. TECHNICAL DOCUMENTATION: JOB ID: [id number] Quality ID # [id number]: Final reports with documentation of one or more dose reduction techniques (e.g., Au tomated exposure control, adjustment of the mA and/or kV according to patient size, use of iterative reconstruction technique) 2010 [employer]- All Rights Reserved Reading location - IP/workstation name: [email or web address]
[2018-08-16] MEDS ORDERED: DIPHENHYDRAMINE HCL 50 MG/ML VIAL IV SCH ×2 (14:00→16:00)
[2018-08-16] MEDS: METHYLPREDNISOLONE INJ 40 MG/1 ML SDV IV SCH ×2 (14:29→21:16)
[2018-08-16] MEDS: DIPHENHYDRAMINE HCL 50 MG CAPSULE PO SCH ×2 (17:06→19:56)
[2018-08-16] MEDS ORDERED: CALCIUM CARBONATE 500 MG TAB.CHEW PO PRN (20:14)
[2018-08-17] MEDS: DIPHENHYDRAMINE HCL 50 MG CAPSULE PO SCH ×7 (00:02→23:14)
[2018-08-17] MEDS: DIPHENHYDRAMINE HCL 50 MG/ML VIAL IV SCH ×7 (00:03→23:54)
[2018-08-17 05:39] LABS: HEPATITIS A AB IGM Negative (Negative); HEPATITIS B CORE AB IGM Negative (Negative); HEPATITS B SURFACE ANTIGEN Negative (Negative)
[2018-08-17 06:39] LABS: F002-IGE MILK (COW) 0.13 kU/L (Class 0/I); F004-IGE WHEAT 3.61 kU/L (Class III); F008-IGE CORN 1.86 kU/L (Class III); F013-IGE PEANUT 2.89 kU/L (Class III); F014-IGE SOYBEAN 1.46 kU/L (Class III); F026-IGE PORK <0.10 kU/L (Class 0); F027-IGE BEEF <0.10 kU/L (Class 0); F245-IGE EGG WHOLE 0.15 kU/L (Class 0/I)
[2018-08-17] MEDS: METHYLPREDNISOLONE INJ 40 MG/1 ML SDV IV SCH ×3 (06:50→21:25)
[2018-08-17 07:14] LABS: F052-IGE CHOCOLATE/COCOA <0.10 kU/L (Class 0)
[2018-08-17 07:14] LABS: HEPATITIS C VIRUS ANTIBODY <0.1 s/co ratio (0.0-0.9)
[2018-08-17] MEDS: LANSOPRAZOLE 15 MG TAB.RAP.DR PO SCH ×2 (09:11→17:06)
[2018-08-17] MEDS: HEPARIN SOD (PORCINE) 5,000 UNIT/ML 1 ML SYRINGE SUBCUT SCH ×2 (09:12→21:25)
[2018-08-17] MEDS ORDERED: LIDOCAINE 2% VISCOUS SOLN 20 ML UDCUP PO ONE (12:15)
[2018-08-17] MEDS ORDERED: METOCLOPRAMIDE HCL ORAL SOLN 10 MG/10 ML UDCUP PO ONE (12:15)
[2018-08-17] MEDS ORDERED: MAG HYDROX/AL HYDROX/SIMETH SUSP 30 ML UDCUP PO ONE (12:15)
[2018-08-17 12:38] LABS: ANTICHROMATIN AB <0.2 AI (0.0-0.9); CENTROMERE B AB <0.2 AI (0.0-0.9); JO-1 ANTIBODY (ANACOMP) <0.2 AI (0.0-0.9); SJOGREN'S ANTI-SS-B AB <0.2 AI (0.0-0.9); SJOGREN'S SS-A ANTIBODY <0.2 AI (0.0-0.9)
--- NOTE | 2018-08-17 13:37 | PDOC PROGRESS REPORT ---
Subjective Progress Note for:: 08/17/18 Subjective:: WESLEY CALDERA is a 28 year old female with a past medical history asthma and latex and shelffish allergies who was admitted to the ICU for anaphylaxis. She received IV steroids in the ER, diphenhydramine, racemic and SQ epinephrine and was eventually started on epi drip. On 08/15/2018 and 08/16/2018 she had recurrence of urticarial rashes, pruritus and throat itchiness when she was switched to oral steroids and oral diphenhydramine. 08/17/2018. No acute events overnight. Patient is still on alternating p.o. and IV diphenhydramine and steroids. Patient is comfortably sitting on her bed and denies any recurrence of the rash since yesterday. She denies any fever, chills, nausea, chest pain, shortness of breath, vomiting, diarrhea, constipation. Reason For Visit: ANAPHYLAXIS Physical Exam Vital Signs: Temp Pulse Resp BP Pulse Ox 98.0 F 69 16 116/73 98 08/17/18 12:47 08/17/18 12:47 08/17/18 12:47 08/17/18 12:47 08/17/18 12:47 Intake & Output 08/16/18 08/17/18 08/18/18 06:59 06:59 06:59 Intake Total 1000 500 150 Output Total 600 Balance 400 500 150 Weight 80.2 kg 79.8 kg General appearance: PRESENT: no acute distress, well-developed, well-nourished Head exam: PRESENT: atraumatic, normocephalic Eye exam: PRESENT: conjunctiva pink, EOMI, PERRLA. ABSENT: scleral icterus Ear exam: PRESENT: normal external ear exam Mouth exam: PRESENT: moist, tongue midline Neck exam: ABSENT: carotid bruit, JVD, lymphadenopathy, thyromegaly Respiratory exam: PRESENT: clear to auscultation nakita. ABSENT: rales, rhonchi, wheezes Cardiovascular exam: PRESENT: RRR. ABSENT: diastolic murmur, rubs, systolic murmur Pulses: PRESENT: normal dorsalis pedis pul Vascular exam: PRESENT: normal capillary refill GI/Abdominal exam: PRESENT: normal bowel sounds, soft. ABSENT: distended, guarding, mass, organolmegaly, rebound, tenderness Rectal exam: PRESENT: deferred Extremities exam: PRESENT: full ROM. ABSENT: calf tenderness, clubbing, pedal edema Neurological exam: PRESENT: alert, awake, oriented to person, oriented to place , oriented to time, oriented to situation, CN II-XII grossly intact. ABSENT: motor sensory deficit Psychiatric exam: PRESENT: appropriate affect, normal mood. ABSENT: homicidal ideation, suicidal ideation Skin exam: PRESENT: dry, intact, warm. ABSENT: cyanosis, rash Results Laboratory Results: 08/16/18 08:08 08/16/18 08:08 08/16/18 12:45 GGT 12 Impressions: Chest X-Ray 08/14/18 12:41 IMPRESSION: No acute radiographic finding in the chest. Soft Tissue Neck X-Ray 08/14/18 12:42 IMPRESSION: Mild soft tissue swelling at the prevertebral region at C1 level. Soft Tissue Neck CT 08/16/18 11:19 IMPRESSION: NO SIGNIFICANT FINDING IN THE SOFT TISSUES OF THE NECK. Assessment & Plan - Diagnosis (1) Acute anaphylaxis Qualifiers: Encounter type: subsequent encounter Qualified Code(s): T78.2XXD - Anaphylactic shock, unspecified, subsequent encounter Is this a current diagnosis for this admission?: Yes Plan: No known recent trigger or exposure except for patient dying her hair 2 days ago. Stable currently off of any drips. Pending tryptase and RAST allergens. Continue alternating IV steroids and diphenhydramine with p.o. Wean off of IV steroids and diphenhydramine when possible. If does not improve will transfer to tertiary facility where she could be seen by an blind aide specialist. Patient will be prescribed epi pens and oral steroids upon discharge. (2) Elevated liver enzymes Is this a current diagnosis for this admission?: Yes Plan: Negative hepatitis workup. CMP tomorrow. (3) Multiple food allergies Is this a current diagnosis for this admission?: Yes Plan: And has positive allergens to fish and shellfish she is also positive for IgG antibodies to corn allergens, cows milk, whole egg, peanut, soybean, and wheat allergy. Consult cleaning supervisor for dietary recommendation. Outpatient blind aide follow- up.
[2018-08-17 16:02] LABS: ANION GAP 7 (5-19); BLOOD UREA NITROGEN 20 mg/dL (7-20); CALCIUM 8.9 mg/dL (8.4-10.2); CARBON DIOXIDE 29 mmol/L (22-30); CHLORIDE 104 mmol/L (98-107); GLUCOSE 111 mg/dL (75-110); POTASSIUM 4.2 mmol/L (3.6-5.0); SODIUM 140.2 mmol/L (137-145)
[2018-08-18] MEDS: DIPHENHYDRAMINE HCL 50 MG CAPSULE PO SCH ×2 (04:33→07:34)
[2018-08-18] MEDS: DIPHENHYDRAMINE HCL 50 MG/ML VIAL IV SCH ×2 (04:37→07:35)
[2018-08-18] MEDS: METHYLPREDNISOLONE INJ 40 MG/1 ML SDV IV SCH (05:04)
[2018-08-18 05:06] LABS: ABSOLUTE LYMPHOCYTES (AUTO) 1.4 10^3/uL (0.5-4.7); ABSOLUTE MONOCYTES (AUTO) 0.4 10^3/uL (0.1-1.4); ABSOLUTE NEUT (AUTO) 9.3 10^3/uL (1.7-8.2); BASOPHILS % (AUTO) 0.3 % (0-2); EOSINOPHILS % (AUTO) 0.1 % (0-6); HEMATOCRIT 35.3 % (36.0-47.0); HEMOGLOBIN 12.1 g/dL (12.0-15.5); LYMPHOCYTES % (AUTO) 12.8 % (13-45); MEAN CORPUSCULAR HEMOGLOBIN 30.6 pg (27.0-33.4); MEAN CORPUSCULAR HGB CONC 34.2 g/dL (32.0-36.0); MEAN CORPUSCULAR VOLUME 90 fl (80-97); MONOCYTES % (AUTO) 3.4 % (3-13); PLATELET COUNT 194 10^3/uL (150-450); RED BLOOD COUNT 3.94 10^6/uL (3.72-5.28); RED CELL DISTRIBUTION WIDTH 13.1 % (11.5-14.0); SEGMENTED NEUTROPHILS % (AUTO) 83.4 % (42-78); TOTAL CELLS COUNTED % (AUTO) 100 %; WHITE BLOOD COUNT 11.1 10^3/uL (4.0-10.5)
[2018-08-18 07:14] LABS: DNA DOUBLE STRAND ANTIBODY ANA 1 IU/mL (0-9)
[2018-08-18] MEDS: HEPARIN SOD (PORCINE) 5,000 UNIT/ML 1 ML SYRINGE SUBCUT SCH ×2 (09:48→21:22)
[2018-08-18] MEDS: LANSOPRAZOLE 15 MG TAB.RAP.DR PO SCH (09:48)
[2018-08-18] MEDS ORDERED: LANSOPRAZOLE 15 MG TAB.RAP.DR PO SCH (09:51)
--- NOTE | 2018-08-18 09:59 | PDOC PROGRESS REPORT ---
Subjective Progress Note for:: 08/18/18 Subjective:: WESLEY CALDERA is a 28 year old female with a past medical history asthma and latex and shelffish allergies who was admitted to the ICU for anaphylaxis. She received IV steroids in the ER, diphenhydramine, racemic and SQ epinephrine and was eventually started on epi drip. On 08/15/2018 and 08/16/2018 she had recurrence of urticarial rashes, pruritus and throat itchiness when she was switched to oral steroids and oral diphenhydramine. 08/17/2018. No acute events overnight. Patient is still on alternating p.o. and IV diphenhydramine and steroids. Patient is comfortably sitting on her bed and denies any recurrence of the rash since yesterday. She denies any fever, chills, nausea, chest pain, shortness of breath, vomiting, diarrhea, constipation. 08/18/2018. No acute events overnight. Patient has not had any rash since yesterday. In the morning she had mild itching which improved with p.o. diphenhydramine. Patient had a consult with cone treater yesterday and she was given information on how to avoid the foods that may contain the components that she has allergies to. Patient had her hair dyed 2 days prior to admission which could have been the trigger for anaphylaxis and also as per pharmacy p.o. Benadryl also has a similar component to hair dye. P.o. Benadryl switch to hydroxyzine. Advised to follow-up with an group sales representative for further workup and recommendation. She denies any fever, shortness of breath, chills, nausea, vomiting, diarrhea, constipation or any urinary symptoms. Reason For Visit: ANAPHYLAXIS Physical Exam Vital Signs: Temp Pulse Resp BP Pulse Ox 98.1 F 70 16 109/56 L 98 08/18/18 03:10 08/18/18 08:35 08/18/18 08:35 08/18/18 03:10 08/18/18 08:35 Intake & Output 08/17/18 08/18/18 08/19/18 06:59 06:59 06:59 Intake Total 500 450 Balance 500 450 Weight 79.8 kg 81.5 kg General appearance: PRESENT: no acute distress, well-developed, well-nourished Head exam: PRESENT: atraumatic, normocephalic Eye exam: PRESENT: conjunctiva pink, EOMI, PERRLA. ABSENT: scleral icterus Ear exam: PRESENT: normal external ear exam Mouth exam: PRESENT: moist, tongue midline Neck exam: ABSENT: carotid bruit, JVD, lymphadenopathy, thyromegaly Respiratory exam: PRESENT: clear to auscultation nakita. ABSENT: rales, rhonchi, wheezes Cardiovascular exam: PRESENT: RRR. ABSENT: diastolic murmur, rubs, systolic murmur Pulses: PRESENT: normal dorsalis pedis pul Vascular exam: PRESENT: normal capillary refill GI/Abdominal exam: PRESENT: normal bowel sounds, soft. ABSENT: distended, guarding, mass, organolmegaly, rebound, tenderness Rectal exam: PRESENT: deferred Extremities exam: PRESENT: full ROM. ABSENT: calf tenderness, clubbing, pedal edema Neurological exam: PRESENT: alert, awake, oriented to person, oriented to place , oriented to time, oriented to situation, CN II-XII grossly intact. ABSENT: motor sensory deficit Psychiatric exam: PRESENT: appropriate affect, normal mood. ABSENT: homicidal ideation, suicidal ideation Skin exam: PRESENT: dry, intact, warm. ABSENT: cyanosis, rash Results Laboratory Results: 08/18/18 04:26 08/17/18 15:35 08/17/18 08/18/18 15:35 04:26 WBC 11.1 H RBC 3.94 Hgb 12.1 Hct 35.3 L MCV 90 MCH 30.6 MCHC 34.2 RDW 13.1 Plt Count 194 Seg Neutrophils % 83.4 H Lymphocytes % 12.8 L Monocytes % 3.4 Eosinophils % 0.1 Basophils % 0.3 Absolute Neutrophils 9.3 H Absolute Lymphocytes 1.4 Absolute Monocytes 0.4 Absolute Eosinophils 0.0 Absolute Basophils 0.0 Sodium 140.2 Potassium 4.2 Chloride 104 Carbon Dioxide 29 Anion Gap 7 BUN 20 Creatinine 0.69 Est GFR ( Amer) > 60 Est GFR (Non-Af Amer) > 60 Glucose 111 H Calcium 8.9 Impressions: Chest X-Ray 08/14/18 12:41 IMPRESSION: No acute radiographic finding in the chest. Soft Tissue Neck X-Ray 08/14/18 12:42 IMPRESSION: Mild soft tissue swelling at the prevertebral region at C1 level. Soft Tissue Neck CT 08/16/18 11:19 IMPRESSION: NO SIGNIFICANT FINDING IN THE SOFT TISSUES OF THE NECK. Assessment & Plan - Diagnosis (1) Acute anaphylaxis Qualifiers: Encounter type: subsequent encounter Qualified Code(s): T78.2XXD - Anaphylactic shock, unspecified, subsequent encounter Is this a current diagnosis for this admission?: Yes Plan: No known recent trigger or exposure except for pain or dye 2 days prior to admission. Stable currently off of any drips. Patient had mentioned on admission that she was told that she may have autoimmune disease. Autoimmune workup negative on this admission. Pending tryptase and RAST allergens. Switch to p.o. steroids. Switch diphenhydramine p.o. to hydroxyzine p.m. Diphenhydramine p.o. has red dye as 1 of its components. Patient may have had allergies to hair dye that she used 2 days prior to admission. Switch back to IV steroids and diphenhydramine if allergies recur. Was asked to take a shower in case she still has component of her diet in her body. If does not improve will transfer to tertiary facility where she could be seen by an group sales representative specialist. Patient will be prescribed epi pens and oral steroids upon discharge. (2) Elevated liver enzymes Is this a current diagnosis for this admission?: Yes Plan: Negative hepatitis and autoimmune workup. CMP tomorrow. (3) Multiple food allergies Is this a current diagnosis for this admission?: Yes Plan: And has positive allergens to fish and shellfish she is also positive for IgG antibodies to corn allergens, cows milk, whole egg, peanut, soybean, and wheat allergy. Consulted cone treater for dietary recommendation. Outpatient group sales representative follow- up.
[2018-08-18] MEDS ORDERED: HYDROXYZINE HCL 2 MG/ML SYRUP 60 ML PO SCH (10:00)
[2018-08-18 11:11] LABS: ALANINE AMINOTRANSFERASE 191 U/L (9-52); ALBUMIN 3.3 g/dL (3.5-5.0); ALKALINE PHOSPHATASE 46 U/L (38-126); ANION GAP 8 (5-19); ASPARTATE AMINO TRANSFERASE 77 U/L (14-36); BILIRUBIN,DIRECT 0.2 mg/dL (0.0-0.4); BILIRUBIN,TOTAL 0.5 mg/dL (0.2-1.3); BLOOD UREA NITROGEN 21 mg/dL (7-20); CALCIUM 8.8 mg/dL (8.4-10.2); CARBON DIOXIDE 29 mmol/L (22-30); CHLORIDE 103 mmol/L (98-107); GLUCOSE 121 mg/dL (75-110); POTASSIUM 4.6 mmol/L (3.6-5.0); SODIUM 139.6 mmol/L (137-145); TOTAL PROTEIN 5.7 g/dL (6.3-8.2)
[2018-08-18] MEDS ORDERED: DIPHENHYDRAMINE HCL 50 MG/ML VIAL IV PRN ×2 (13:20→15:30)
[2018-08-18] MEDS: HYDROXYZINE HCL 2 MG/ML SYRUP 60 ML PO SCH ×2 (13:58→21:23)
[2018-08-18] MEDS: PREDNISONE 20 MG TABLET PO SCH (17:22)
[2018-08-18] MEDS: LANSOPRAZOLE 30 MG TAB.RAP.DR PO SCH (17:23)
[2018-08-19 05:42] LABS: ALANINE AMINOTRANSFERASE 295 U/L (9-52); ALBUMIN 3.3 g/dL (3.5-5.0); ALKALINE PHOSPHATASE 47 U/L (38-126); ANION GAP 10 (5-19); ASPARTATE AMINO TRANSFERASE 76 U/L (14-36); BILIRUBIN,DIRECT 0.1 mg/dL (0.0-0.4); BILIRUBIN,TOTAL 0.4 mg/dL (0.2-1.3); BLOOD UREA NITROGEN 22 mg/dL (7-20); CALCIUM 8.8 mg/dL (8.4-10.2); CARBON DIOXIDE 28 mmol/L (22-30); CHLORIDE 102 mmol/L (98-107); GLUCOSE 94 mg/dL (75-110); POTASSIUM 4.7 mmol/L (3.6-5.0); SODIUM 140.1 mmol/L (137-145); TOTAL PROTEIN 5.7 g/dL (6.3-8.2)
[2018-08-19] MEDS: HYDROXYZINE HCL 2 MG/ML SYRUP 60 ML PO SCH (06:09)
[2018-08-19] MEDS: LANSOPRAZOLE 30 MG TAB.RAP.DR PO SCH (09:43)
[2018-08-19] MEDS: PREDNISONE 20 MG TABLET PO SCH (09:43)
[2018-08-19] MEDS: HEPARIN SOD (PORCINE) 5,000 UNIT/ML 1 ML SYRINGE SUBCUT SCH (09:44)
--- NOTE | 2018-08-19 09:50 | PDOC DISCHARGE SUMMARY ---
General - Admit/Disc Date/PCP Admission Date/Primary Care Provider: 08/14/18 13:41 CYNTHIA HENLEYCAMACHO Discharge Date: 08/19/18 - Discharge Diagnosis (1) Acute anaphylaxis Is this a current diagnosis for this admission?: Yes (2) Elevated liver enzymes Is this a current diagnosis for this admission?: Yes (3) Multiple food allergies Is this a current diagnosis for this admission?: Yes - Additional Information Resuscitation Status: Full Code Prescriptions: Epinephrine [Auvi-Q] 0.3 mg IJ ONCE PRN 5 Days #3 auto.injct PRN Reason: Hydroxyzine HCl [Atarax 2 mg/ml Syrup] 25 mg PO Q8 1 Days #30 ml Prednisone 30 mg PO DAILY 5 Days #5 tablet Home Medications: Albuterol Sulfate [Proair HFA] 2 puff IH Q4 PRN 05/13/18 Epinephrine [Auvi-Q] 0.3 mg IJ ONCE PRN 5 Days #3 auto.injct 08/19/18 Hydroxyzine HCl [Atarax 2 mg/ml Syrup] 25 mg PO Q8 1 Days #30 ml 08/19/18 Prednisone 30 mg PO DAILY 5 Days #5 tablet 08/19/18 History of Present Illness History of Present Illness: WESLEY CALDERA is a 28 year old female with a past medical history asthma and latex and shelffish allergies who was admitted to the ICU for anaphylaxis. She received IV steroids in the ER, diphenhydramine, racemic and SQ epinephrine and was eventually started on epi drip. Hospital Course Hospital Course: (1) Acute anaphylaxis No known recent trigger or exposure except for pain or dye 2 days prior to admission. Stable currently off of any drips. Patient had mentioned on admission that she was told that she may have autoimmune disease. Autoimmune workup negative on this admission. Pending tryptase and RAST allergens. Switch to p.o. steroids. Switch diphenhydramine p.o. to hydroxyzine p.m. Diphenhydramine p.o. has red dye as 1 of its components. Patient may have had allergies to hair dye that she used 2 days prior to admission. Patient's IV steroids was switched to p.o. and her diphenhydramine was switched to hydroxyzine. Vitals remained stable and patient did not have any recurrence of her rash or itching. She was also asked to to take a shower in case she still has component of her diet in her body. Patient will be discharged with EpiPen's, oral steroids and antihistamines upon discharge. Strongly encouraged to see an talking books library clerk to be further worked up for her allergies. She was also advised to come back to ED in case her rash recurs or she gets short of breath. (2) Elevated liver enzymes Stable. She is nonalcoholic and her workup for autoimmune disease and hepatitis was negative. Liver ultrasound positive for infiltration. Strongly encouraged to follow-up with her PCP to do a follow up LFT check. (3) Multiple food allergies And has positive allergens to fish and shellfish she is also positive for IgG antibodies to corn allergens, cows milk, whole egg, peanut, soybean, and wheat allergy. Consultation was obtained from distribution estimator. Patient was given advice on how to avoid foods containing the above allergens. Follow up with an talking books library clerk for further workup and management. Physical Exam Vital Signs: Temp Pulse Resp BP Pulse Ox 97.7 F 62 16 108/72 100 08/19/18 07:51 08/19/18 07:51 08/19/18 07:51 08/19/18 07:51 08/19/18 07:51 Intake & Output 08/18/18 08/19/18 08/20/18 06:59 06:59 06:59 Intake Total 450 1595 Balance 450 1595 Weight 81.5 kg 80.9 kg General appearance: PRESENT: no acute distress, well-developed, well-nourished Head exam: PRESENT: atraumatic, normocephalic Eye exam: PRESENT: conjunctiva pink, EOMI, PERRLA. ABSENT: scleral icterus Ear exam: PRESENT: normal external ear exam Mouth exam: PRESENT: moist, tongue midline Neck exam: ABSENT: carotid bruit, JVD, lymphadenopathy, thyromegaly Respiratory exam: PRESENT: clear to auscultation nakita. ABSENT: rales, rhonchi, wheezes Cardiovascular exam: PRESENT: RRR. ABSENT: diastolic murmur, rubs, systolic murmur Pulses: PRESENT: normal dorsalis pedis pul Vascular exam: PRESENT: normal capillary refill GI/Abdominal exam: PRESENT: normal bowel sounds, soft. ABSENT: distended, guarding, mass, organolmegaly, rebound, tenderness Rectal exam: PRESENT: deferred Extremities exam: PRESENT: full ROM. ABSENT: calf tenderness, clubbing, pedal edema Neurological exam: PRESENT: alert, awake, oriented to person, oriented to place , oriented to time, oriented to situation, CN II-XII grossly intact. ABSENT: motor sensory deficit Psychiatric exam: PRESENT: appropriate affect, normal mood. ABSENT: homicidal ideation, suicidal ideation Skin exam: PRESENT: dry, intact, warm. ABSENT: cyanosis, rash Results Laboratory Results: 08/18/18 04:26 08/19/18 05:01 08/18/18 08/19/18 04:26 05:01 Sodium 139.6 140.1 Potassium 4.6 4.7 Chloride 103 102 Carbon Dioxide 29 28 Anion Gap 8 10 BUN 21 H 22 H Creatinine 0.74 0.79 Est GFR ( Amer) > 60 > 60 Est GFR (Non-Af Amer) > 60 > 60 Glucose 121 H 94 Calcium 8.8 8.8 Total Bilirubin 0.5 0.4 AST 77 H 76 H ALT 191 H 295 H Alkaline Phosphatase 46 47 Total Protein 5.7 L 5.7 L Albumin 3.3 L 3.3 L Impressions: Chest X-Ray 08/14/18 12:41 IMPRESSION: No acute radiographic finding in the chest. Soft Tissue Neck X-Ray 08/14/18 12:42 IMPRESSION: Mild soft tissue swelling at the prevertebral region at C1 level. Soft Tissue Neck CT 08/16/18 11:19 IMPRESSION: NO SIGNIFICANT FINDING IN THE SOFT TISSUES OF THE NECK. Qualifiers - * PATIENT BEING DISCHARGED WITH ANY OF THE FOLLOWING DIAGNOSIS: No
--- NOTE | 2018-08-19 10:12 | RADIOLOGY REPORT (SQ) ---
EXAM DESCRIPTION: U/S ABDOMEN LTD W/DOPPLER COMPLETED DATE/TIME: 08/19/2018 8:54 am REASON FOR STUDY: elevated LFTs COMPARISON: None. TECHNIQUE: Dynamic and static grayscale images acquired of the abdomen and recorded on PACS. Hungo nal selected color Doppler and spectral images recorded. LIMITATIONS: None. FINDINGS: PANCREAS: No masses. Visualized pancreatic duct normal caliber. LIVER: No masses. Slightly increased echogenicity. LIVER VASCULATURE: Normal directional flow of the main portal vein and hepatic veins. GALLBLADDER: No stones. Normal wall thickness. No pericholecystic fluid. ULTRASOUND-DETECTED CORREIA'S SIGN: Negative. INTRAHEPATIC DUCTS AND COMMON DUCT: CBD and intrahepatic ducts normal caliber. No filling defects. INFERIOR VENA CAVA: Normal flow. AORTA: No aneurysm. RIGHT KIDNEY: Normal size, 11.4 cm. Normal echogenicity. No solid or suspicious masses. No hydroneph rosis. No calcifications. PERITONEAL AND RIGHT PLEURAL SPACE: No ascites or effusions. OTHER: No other significant findings. IMPRESSION: There appears to be some degree of fatty infiltration of the liver. No other abnormalit y is seen. TECHNICAL DOCUMENTATION: JOB ID: [id number] [employer]- All Rights Reserved Reading location - IP/workstation name: [email or web address]
[2018-08-19 10:54] VITALS: BP 116/75
== END 2018-08-19 12:22 | disposition home health service (06) | DRG 916 ==
LOC: ER 10:59 → EH 13:41 → ICU 14:25 → 3W 08-17 12:25
PROVIDERS: ADMIT Internal Medicine; ATTEND Internal Medicine
PROC: 3E0F73Z Introduction of Anti-inflammatory into Respiratory Tract, Via Natural or Artificial Opening (ICD-10-PCS; principal; 2018-08-14)
DX: T78.2XXA Anaphylactic shock, unspecified, initial encounter (principal); J45.909 Unspecified asthma, uncomplicated; L50.0 Allergic urticaria; L29.9 Pruritus, unspecified; R94.5 Abnormal results of liver function studies; Z91.013 Allergy to seafood; Z91.040 Latex allergy status; Z86.14 Personal history of Methicillin resistant Staphylococcus aureus infection; Z83.3 Family history of diabetes mellitus; Z82.49 Family history of ischemic heart disease and other diseases of the circulatory system; Z91.012 Allergy to eggs; Z91.011 Allergy to milk products; Z91.010 Allergy to peanuts; Z91.018 Allergy to other foods
CPT/HCPCS: 36415; 70360; 70490; 71045; 76705; 80048; 80053; 80074; 82962; 82977; 83520; 84484; 85025; 86003; 86060; 86161; 86225; 86235; 86701; 93005; 93010; 93976; 94640; 96361; 96372; 96374; 96375; 99291; J0171; J1200; J1644; J2920; J2930; J3490; J7030; J7060; J7512; J7620; S0028

== ENCOUNTER 2018-09-22 09:56 | Day surgery (SDC) | payer MEDICAID ==
[~2018-09-22 09:56] MED LIST: DIPHENHYDRAMINE HCL 50 MG/ML VIAL ONE; EPINEPHRINE INJ 1 MG/10 ML DISP.SYRIN ONE; FLUMAZENIL INJ 0.5 MG/5 ML VIAL ONE; GLUCAGON,HUMAN RECOMB 1 MG INJ ONE; NALOXONE HCL INJ/PF 0.4 MG/1 ML SDV ONE; ONDANSETRON HCL INJ/PF 4 MG/2 ML SDV ONE
[2018-09-22] MEDS: MIDAZOLAM 2 MG/2 ML INJ ONE ×3 (10:22→10:31)
[2018-09-22] MEDS: FENTANYL CITRATE INJ/PF 100 MCG/2 ML AMPUL ONE ×3 (10:24→10:29)
[2018-09-22] MEDS ORDERED: DIPHENHYDRAMINE HCL 50 MG/ML VIAL IV PRN (11:09)
[2018-09-22] MEDS ORDERED: FENTANYL CITRATE INJ/PF 100 MCG/2 ML AMPUL IV PRN ×3 (11:09)
[2018-09-22] MEDS ORDERED: PROMETHAZINE HCL INJ 25 MG/1 ML VIAL IV PRN ×2 (11:09)
[2018-09-22] MEDS ORDERED: OXYCODONE-ACETAMINOPHEN 5-325 MG TABLET PO PRN ×2 (11:09)
[2018-09-22] MEDS ORDERED: MEPERIDINE HCL/PF INJ 25 MG/1 ML DISP.SYRIN IV PRN (11:09)
--- NOTE | 2018-09-22 11:18 | Operative Report ---
Operative Report DATE OF SURGERY: 09/22/18 Operative Report: The risks benefits and alternatives of the procedure explained to the patient in detail and informed consent is obtained.A GIF Olympus video scope was inserted into the patient's mouth and hypopharynx, the esophagus is identified intubated and insufflated ,the scope was then advanced through the esophagus stomach and duodenum ,retroflexion maneuver is done the esophagus stomach and first and second portions of the duodenum examined PREOPERATIVE DIAGNOSIS: Epigastric pain POSTOPERATIVE DIAGNOSIS: Hiatal hernia. Gastritis status post biopsy for Helicobacter pylori OPERATION: EGD with biopsy SURGEON: NIRMAL SALGADO ANESTHESIA: Moderate Sedation - 6 mg of Versed, 125 mcg of fentanyl. Conscious sedation monitoring time 30 minutes. TISSUE REMOVED OR ALTERED: As noted above. COMPLICATIONS: None. ESTIMATED BLOOD LOSS: None. INTRAOPERATIVE FINDINGS: As noted above. PROCEDURE: Patient tolerated the procedure well. No immediate postprocedure complications are noted. Patient discharged in good condition. Discharge date 09/22/2018. Discharge diet: Regular. Discharge activity: Regular. 2-3-week follow-up to discuss findings. Patient is instructed to call the office or proceed to the emergency room should there be any further problems or questions. I will in the pathology.
[2018-09-22 11:41] VITALS: BP 94/66
== END 2018-09-22 11:45 | disposition home or self-care (01) ==
LOC: END 09:56
PROVIDERS: ATTEND Internal Medicine Gastroenterology
DX: K44.9 Diaphragmatic hernia without obstruction or gangrene (principal); K29.70 Gastritis, unspecified, without bleeding; R10.13 Epigastric pain; K76.0 Fatty (change of) liver, not elsewhere classified
CPT/HCPCS: 43239; 88342 ×2; 88305 ×2; J2250; J3010; J0171; J1200; J1610; J2310; J2405; J3490

== ENCOUNTER → 2018-09-24 | Outpatient (CLI) | payer MEDICAID ==
--- NOTE | 2018-09-24 17:20 | RADIOLOGY REPORT (SQ) ---
EXAM DESCRIPTION: NM HIDA SCAN WITH CCK COMPLETED DATE/TIME: 09/24/2018 5:06 pm REASON FOR STUDY: RUQ PAIN R10.11 RIGHT UPPER QUADRANT PAIN COMPARISON: None. RADIONUCLIDE AND DOSE: DOSAGE RADIONUCLIDE: 5.46 millicuries Tc99m Mebrofenin. DOSAGE CCK: 1.6 micrograms. DOSAGE MORPHINE: Not required. The route of agent administration: Intravenous TECHNIQUE: Serial imaging right upper quadrant up to 60 minutes following injection of radionuclide. CCK injected after gallbladder visualized. LIMITATIONS: None. FINDINGS: LIVER: Normal visualization without areas of photopenia. INTRAHEPATIC BILE DUCTS: Normal size and no delay in visualization. COMMON BILE DUCT: Normal without dilatation. GALLBLADDER: Normal visualization. Calculated ejection fraction of 7%. Normal range is greater helena n 35%. PHYSICAL RESPONSE: Patients presenting complaint was not reproduced. OTHER: No other significant finding. IMPRESSION: Biliary dyskinesis. CCK did not reproduce symptoms. TECHNICAL DOCUMENTATION: JOB ID: [id number] [employer]- All Rights Reserved Reading location - IP/workstation name: [email or web address]
== END ==
LOC: RAD 12:42
PROVIDERS: ATTEND Internal Medicine Gastroenterology
DX: R10.11 Right upper quadrant pain (principal)
CPT/HCPCS: 78227; J2805; A9537; Q9969

== ENCOUNTER 2018-09-30 17:08 | Emergency (ER) | payer MEDICAID ==
[2018-09-30] MEDS ORDERED: KETOROLAC TROMETHAMINE INJ/PF 30 MG/1 ML SDV IV ONE (18:13)
[2018-09-30] MEDS ORDERED: DICYCLOMINE HCL INJ 20 MG/2 ML AMPULE IM ONE (18:13)
--- NOTE | 2018-09-30 18:18 | ER Document Report ---
ED GI/ - General Chief Complaint: Abdominal Pain Stated Complaint: STOMACH PAIN Time Seen by Provider: 09/30/18 18:02 Notes: Chief complaint: abdominal pain: History of complain:( obtained from----patient) 28 years old female presents today with right upper quadrant abdominal pain radiating to the back associated with nausea, vomited yellow vomitus. She had a biliary scan done recently which indicates normal gallbladder no gallstone normal biliary tree no dilatation, biliary dyskinesia. CCK test was negative. There were no contraction or pain. Denies any fever chills or other constitutional symptoms Onset: Gradual Duration: Last few days Severity: Mild to moderate Quality: Crampy Context: Unknown Exacerbating factor and relieving factors: REVIEW OF SYSTEMS: CONSTITUTIONAL : Denies fever, chills, or sweats. Denies recent illness. EENT: Denies eye, ear, throat, or mouth pain or symptoms. Denies nasal or sinus congestion or discharge. Denies throat, tongue, or mouth swelling or difficulty swallowing. CARDIOVASCULAR: Denies chest pain. Denies palpitations or racing or irregular heart beat. Denies ankle edema. RESPIRATORY: Denies cough, cold, or chest congestion. Denies shortness of breath, difficulty breathing, or wheezing. GASTROINTESTINAL: Denies distention. Denies nausea, vomiting, or diarrhea. Denies blood in vomitus, stools, or per rectum. Denies black, tarry stools. Denies constipation. GENITOURINARY: Denies difficulty urinating, painful urination, burning, frequency, blood in urine, or discharge. FEMALE GENITOURINARY: Denies vaginal bleeding, heavy or abnormal periods, irregular periods. Denies vaginal discharge or odor. MUSCULOSKELETAL: Denies back or neck pain or stiffness. Denies joint pain or swelling. SKIN: Denies rash, lesions or sores. HEMATOLOGIC : Denies easy bruising or bleeding. LYMPHATIC: Denies swollen, enlarged glands. NEUROLOGICAL: Denies confusion or altered mental status. Denies passing out or loss of consciousness. Denies dizziness or lightheadedness. Denies headache. Denies weakness or paralysis or loss of use of either side. Denies problems with gait or speech. Denies sensory loss, numbness, or tingling. Denies seizures. PSYCHIATRIC: Denies anxiety or stress. Denies depression, suicidal ideation, or homicidal ideation. ALL OTHER SYSTEMS REVIEWED AND NEGATIVE. PHYSICAL EXAMINATION: GENERAL: Well-appearing, well-nourished and in no acute distress. HEAD: Atraumatic, normocephalic. EYES: Pupils equal round and reactive to light, extraocular movements intact, conjunctiva are normal. ENT: Nares patent, oropharynx clear without exudates. Moist mucous membranes. NECK: Normal range of motion, supple without lymphadenopathy LUNGS: Breath sounds clear to auscultation bilaterally and equal. No wheezes rales or rhonchi. HEART: Regular rate and rhythm without murmurs ABDOMEN: Soft, nontender, nondistended abdomen. No guarding, no rebound. No masses appreciated. Female : deferred Musculoskeletal: Normal range of motion, no pitting or edema. No cyanosis. NEUROLOGICAL: Cranial nerves grossly intact. Normal speech, normal gait. Normal sensory, motor exams PSYCH: Normal mood, normal affect. SKIN: Warm, Dry, normal turgor, no rashes or lesions noted. Dictation was performed using [employer] voice recognition software TRAVEL OUTSIDE OF THE [place] IN LAST 30 DAYS: No - HPI Notes: 09/30/18 18:17 Dictated - Related Data Allergies/Adverse Reactions: latex [Latex] Allergy (Severe, Verified 09/30/18 17:12) SKIN SWELLING Shellfish * [Shellfish] Allergy (Severe, Verified 09/30/18 17:12) Anaphylaxis Past Medical History - Social History Smoking Status: Never Smoker Frequency of alcohol use: Rare Drug Abuse: None Lives with: Family Family History: Reviewed & Not Pertinent, DM, Hypertension, Thyroid Disfunction Patient has suicidal ideation: No Patient has homicidal ideation: No - Past Medical History Cardiac Medical History: Denies: Hx Coronary Artery Disease, Hx Heart Attack, Hx Hypertension Pulmonary Medical History: Reports: Hx Asthma Denies: Hx Bronchitis, Hx COPD, Hx Pneumonia Neurological Medical History: Denies: Hx Cerebrovascular Accident, Hx Seizures Renal/ Medical History: Denies: Hx Peritoneal Dialysis Musculoskeletal Medical History: Reports Hx Arthritis - BACK, Reports Hx Musculoskeletal Deformity, Reports Hx Musculoskeletal Trauma Skin Medical History: 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 Denies: Hx Hysterectomy - Immunizations Immunizations up to date: Yes Hx Diphtheria, Pertussis, Tetanus Vaccination: - UNSURE Review of Systems - Review of Systems Notes: Dictated Physical Exam - Vital signs Vitals: Temp Pulse Resp BP Pulse Ox 97.5 F 106 H 16 132/78 H 98 09/30/18 17:12 09/30/18 17:12 09/30/18 17:12 09/30/18 17:12 09/30/18 17:12 - Notes Notes: Dictated Course - Vital Signs Vital signs: Temp Pulse Resp BP Pulse Ox 97.5 F 106 H 16 132/78 H 98 09/30/18 17:12 09/30/18 17:12 09/30/18 17:12 09/30/18 17:12 09/30/18 17:12 - Laboratory Result Diagrams: 09/30/18 18:23 09/30/18 18:23 Discharge - Discharge Clinical Impression: Constipation by delayed colonic transit Abdominal pain Qualifiers: Abdominal location: generalized Qualified Code(s): R10.84 - Generalized abdominal pain Condition: Fair Disposition: HOME, SELF-CARE Instructions: Abdominal Pain ([facility]), Constipation ([facility]) Prescriptions: Ketorolac Tromethamine [Toradol 10 mg Tablet] 10 mg PO Q6HP PRN #14 tablet PRN Reason: Dicyclomine HCl [Bentyl 10 mg Capsule] 1 cap PO TID #30 cap Lactulose [Cephulac Syrup 20 gm/30 ml Udcup] 20 gm PO BID #120 udc Referrals: NIRMAL SALGADO MD [Primary Care Provider] - Follow up as needed
--- NOTE | 2018-09-30 18:31 | PDOC CONSULTATION ---
Consultation Consult Date: 09/30/18 Attending physician:: NIRMAL SALGADO Consult reason:: RUQ pain with nausea and vomiting History of Present Illness Admission Date/PCP: NIRMAL SALGADO MD History of Present Illness: WESLEY CALDERA is a 28 year old female patient called out office earlier in the day she was sent to me for work up of her abdominal pain, RUQ that is accompanied by nausea and vomiting she underwent an EGD, that was negative for any ulcer disease , and her biopsies are negative for H.Pylori patient had ultrasound on 08/19 and that showed fatty liver she recently had a HIDA scan that showed a biliary ejection fraction of only 7 % she was given a surgical referral to [facility] and was supposed to be seen by Dr Soria she noted onset of pain today and stated to us that she could not bear it any longer and wanted to be seen sooner she presented to the ED and is currently in triage patient denies any blood in her stools she does have diarrhea and has an outpatient appt to get a colonoscopy done if that were to be persistent patient states her symptoms are post prandial Past Medical History Cardiac Medical History: Denies: Coronary Artery Disease, Myocardial Infarction, Hypertension Pulmonary Medical History: Reports: Asthma Denies: Bronchitis, Chronic Obstructive Pulmonary Disease (COPD), Pneumonia Neurological Medical History: Denies: Seizures Musculoskeltal Medical History: Reports: Arthritis - BACK Hematology: Reports: Anemia Infectious Medical History: Reports: Methicillin-Resistant Staph Aureus Past Surgical History Past Surgical History: Denies: Hysterectomy Social History Lives with: Family Smoking Status: Never Smoker Frequency of Alcohol Use: None Hx Recreational Drug Use: No Drugs: None Hx Prescription Drug Abuse: No Family History Family History: Reviewed & Not Pertinent, DM, Hypertension, Thyroid Disfunction Parental Family History Reviewed: Yes Children Family History Reviewed: Unknown Sibling(s) Family History Reviewed.: Unknown Medication/Allergy Home Medications: Albuterol Sulfate [Proair HFA] 2 puff IH Q4 PRN 05/13/18 Allergies/Adverse Reactions: latex [Latex] Allergy (Severe, Verified 09/30/18 17:12) SKIN SWELLING Shellfish * [Shellfish] Allergy (Severe, Verified 09/30/18 17:12) Anaphylaxis Review of Systems Constitutional: ABSENT: fever(s), headache(s), night sweats, weakness Eyes: ABSENT: visual disturbances Ears: ABSENT: hearing changes Nose, Mouth, and Throat: ABSENT: mouth pain, sore throat Cardiovascular: ABSENT: edema, orthropnea, palpitations Respiratory: ABSENT: dyspnea, hemoptysis Genitourinary: ABSENT: dysuria, hematuria Neurological: ABSENT: syncope, tingling, tremor(s), vertigo Endocrine: ABSENT: polydipsia, polyphagia, polyuria Hematologic/Lymphatic: ABSENT: easy bruising, lymphadenopathy Physical Exam Vital Signs: Temp Pulse Resp BP Pulse Ox 97.5 F 106 H 16 132/78 H 98 09/30/18 17:12 09/30/18 17:12 09/30/18 17:12 09/30/18 17:12 09/30/18 17:12 Intake & Output 09/29/18 09/30/18 10/01/18 06:59 06:59 06:59 Weight 79.6 kg General appearance: PRESENT: mild distress, well-developed, well-nourished Head exam: PRESENT: normocephalic Eye exam: PRESENT: EOMI, PERRLA. ABSENT: nystagmus, periorbital swelling, scleral icterus Mouth exam: PRESENT: moist, neck supple Throat exam: ABSENT: tonsillar exudate, tonsillogmegaly - d Neck exam: ABSENT: meningismus, tenderness Respiratory exam: PRESENT: symmetrical, unlabored. ABSENT: tachypnea, wheezes Cardiovascular exam: PRESENT: +S1, +S2 GI/Abdominal exam: PRESENT: soft, tenderness. ABSENT: ascites, rebound, rigid Extremities exam: ABSENT: joint swelling, pedal edema Musculoskeletal exam: PRESENT: full ROM Neurological exam: PRESENT: oriented to time, oriented to situation, CN II-XII grossly intact Focused psych exam: ABSENT: restlessness Skin exam: PRESENT: normal color. ABSENT: mottled, pallor, urticaria, vesicles Assessment & Plan - Diagnosis (1) RUQ pain Plan: associated with symptoms of nausea and vomiting especially following food intake her recent EGD with biopsies are negative her recent HIDA scan show a biliary ejection fraction of only 7% recommend labs, LFT's make sure no stones or choledocholithiasis consult surgicalist director translation patient may need to be admitted depending on surgical evaluation and need to have possible cholecystectomy if felt to be warranted - Time Time Spent: 50 to 70 Minutes
[2018-09-30 19:03] LABS: ABSOLUTE EOSINOPHILS # (AUTO) 0.1 10^3/uL (0.0-0.6); ABSOLUTE LYMPHOCYTES (AUTO) 2.1 10^3/uL (0.5-4.7); ABSOLUTE MONOCYTES (AUTO) 0.5 10^3/uL (0.1-1.4); ABSOLUTE NEUT (AUTO) 3.2 10^3/uL (1.7-8.2); BASOPHILS % (AUTO) 0.7 % (0-2); EOSINOPHILS % (AUTO) 2.4 % (0-6); HEMATOCRIT 39.2 % (36.0-47.0); HEMOGLOBIN 13.3 g/dL (12.0-15.5); LYMPHOCYTES % (AUTO) 35.6 % (13-45); MEAN CORPUSCULAR HEMOGLOBIN 31.3 pg (27.0-33.4); MEAN CORPUSCULAR HGB CONC 34.1 g/dL (32.0-36.0); MEAN CORPUSCULAR VOLUME 92 fl (80-97); MONOCYTES % (AUTO) 8.4 % (3-13); PLATELET COUNT 210 10^3/uL (150-450); RED BLOOD COUNT 4.27 10^6/uL (3.72-5.28); RED CELL DISTRIBUTION WIDTH 12.7 % (11.5-14.0); SEGMENTED NEUTROPHILS % (AUTO) 52.9 % (42-78); TOTAL CELLS COUNTED % (AUTO) 100 %
--- NOTE | 2018-09-30 19:06 | RADIOLOGY REPORT (SQ) ---
EXAM DESCRIPTION: KUB/ABDOMEN (SINGLE VIEW) COMPLETED DATE/TIME: 09/30/2018 6:32 pm REASON FOR STUDY: Abdominal pain COMPARISON: Abdominal ultrasound 08/19/2018 NUMBER OF VIEWS: One view. TECHNIQUE: Supine radiographic image of the abdomen acquired. LIMITATIONS: None. FINDINGS: BOWEL GAS PATTERN: Normal bowel gas pattern. No dilated loops. CALCIFICATIONS: No suspicious calcifications. SOFT TISSUES: No gross mass or suggestion of organomegaly. HARDWARE: None in the abdomen. BONES: No acute fracture. No worrisome bone lesions. OTHER: No other significant finding. IMPRESSION: NO RADIOGRAPHIC EVIDENCE FOR ACUTE ABDOMINAL DISEASE. TECHNICAL DOCUMENTATION: JOB ID: [id number] [employer]- All Rights Reserved Reading location - IP/workstation name: [email or web address]
[2018-09-30 19:08] LABS: AMORPHOUS SEDIMENT,URINE TRACE /HPF; APPEARANCE,URINE SLIGHTLY-CLOUDY; BILIRUBIN,URINE NEGATIVE (NEGATIVE); COLOR,URINE STRAW; GLUCOSE, URINE NEGATIVE (NEGATIVE); KETONES,URINE NEGATIVE (NEGATIVE); LEUKOCYTE ESTERASE,URINE NEGATIVE (NEGATIVE); NITRITE,URINE NEGATIVE (NEGATIVE); PROTEIN,URINE NEGATIVE (NEGATIVE); UROBILINOGEN,URINE NEGATIVE mg/dL (<2.0)
[2018-09-30 19:28] LABS: ALANINE AMINOTRANSFERASE 21 U/L (9-52); ALBUMIN 4.3 g/dL (3.5-5.0); ALKALINE PHOSPHATASE 55 U/L (38-126); ANION GAP 10 (5-19); ASPARTATE AMINO TRANSFERASE 21 U/L (14-36); BILIRUBIN,DIRECT 0.2 mg/dL (0.0-0.4); BILIRUBIN,TOTAL 0.3 mg/dL (0.2-1.3); BLOOD UREA NITROGEN 16 mg/dL (7-20); CALCIUM 9.8 mg/dL (8.4-10.2); CARBON DIOXIDE 30 mmol/L (22-30); CHLORIDE 103 mmol/L (98-107); GLUCOSE 78 mg/dL (75-110); LIPASE 80.2 U/L (23-300); POTASSIUM 4.1 mmol/L (3.6-5.0); SODIUM 143.3 mmol/L (137-145); TOTAL PROTEIN 6.7 g/dL (6.3-8.2)
[2018-09-30 19:55] VITALS: BP 117/63
== END 2018-09-30 19:55 | disposition home or self-care (01) ==
LOC: ER 17:08
DX: K59.01 Slow transit constipation (principal); R10.84 Generalized abdominal pain; R11.2 Nausea with vomiting, unspecified; J45.909 Unspecified asthma, uncomplicated; Z91.040 Latex allergy status; Z91.012 Allergy to eggs; Z87.892 Personal history of anaphylaxis
CPT/HCPCS: 99284; 96372; 96374; 36415; 83690; 85025; 80053; 81001; 74018; J0500; J1885

== ENCOUNTER 2018-10-13 08:22 | Day surgery (SDC) | payer MEDICAID ==
[2018-10-07 10:26] LABS: HEMATOCRIT 38.5 % (36.0-47.0); HEMOGLOBIN 13.1 g/dL (12.0-15.5); MEAN CORPUSCULAR HEMOGLOBIN 30.7 pg (27.0-33.4); MEAN CORPUSCULAR VOLUME 90 fl (80-97); PLATELET COUNT 185 10^3/uL (150-450); RED BLOOD COUNT 4.26 10^6/uL (3.72-5.28); RED CELL DISTRIBUTION WIDTH 13.1 % (11.5-14.0)
[2018-10-07 10:46] LABS: ALANINE AMINOTRANSFERASE 18 U/L (9-52); ALKALINE PHOSPHATASE 55 U/L (38-126); AMYLASE 65 U/L (30-110); ANION GAP 8 (5-19); ASPARTATE AMINO TRANSFERASE 19 U/L (14-36); BILIRUBIN,DIRECT 0.2 mg/dL (0.0-0.4); BILIRUBIN,TOTAL 0.8 mg/dL (0.2-1.3); BLOOD UREA NITROGEN 12 mg/dL (7-20); CALCIUM 9.2 mg/dL (8.4-10.2); CARBON DIOXIDE 27 mmol/L (22-30); CHLORIDE 105 mmol/L (98-107); GLUCOSE 87 mg/dL (75-110); POTASSIUM 4.5 mmol/L (3.6-5.0); SODIUM 140.2 mmol/L (137-145); TOTAL PROTEIN 6.2 g/dL (6.3-8.2)
[~2018-10-13 08:22] MED LIST changes: +ACETAMINOPHEN 325 MG TABLET PO PRN; +CEFAZOLIN 1 GM/D5W RTU 1 GM/50 ML RTUPB IV ONE; +CEFAZOLIN 1 GM/D5W RTU 1 GM/50 ML RTUPB IV PRN; -DIPHENHYDRAMINE HCL 50 MG/ML VIAL ONE; -EPINEPHRINE INJ 1 MG/10 ML DISP.SYRIN ONE; -FLUMAZENIL INJ 0.5 MG/5 ML VIAL ONE; -GLUCAGON,HUMAN RECOMB 1 MG INJ ONE; +LACTATED RINGERS 1000 ML IV PRN; +LIDOCAINE 0.5% INJ-PF (5 MG/ML) 50 ML SDV SUBCUT PRN; -NALOXONE HCL INJ/PF 0.4 MG/1 ML SDV ONE; -ONDANSETRON HCL INJ/PF 4 MG/2 ML SDV ONE
[2018-10-13] MEDS ORDERED: ALBUTEROL SULFATE 0.083% NEB 2.5 MG/3 ML AMPUL NEB ONE (09:04)
[2018-10-13] MEDS ORDERED: ACETAMINOPHEN 1,000 MG/100 ML RTUPB IV ONE (09:58)
[2018-10-13] MEDS ORDERED: PROPOFOL INJ 200 MG/20 ML VIAL IV ONE (09:58)
[2018-10-13] MEDS ORDERED: FENTANYL CITRATE INJ/PF 250 MCG/5 ML AMPULE ONE (09:58)
[2018-10-13] MEDS ORDERED: MIDAZOLAM 2 MG/2 ML INJ ONE (09:58)
[2018-10-13] MEDS ORDERED: BUPIVACAINE HCL 0.25 % INJ/PF (2.5 MG/1 ML) 30 ML VIAL ONE (09:59)
[2018-10-13] MEDS ORDERED: DIPHENHYDRAMINE HCL 50 MG/ML VIAL IV PRN (10:34)
[2018-10-13] MEDS ORDERED: FENTANYL CITRATE INJ/PF 100 MCG/2 ML AMPUL IV PRN ×3 (10:34)
[2018-10-13] MEDS ORDERED: MEPERIDINE HCL/PF INJ 25 MG/1 ML DISP.SYRIN IV PRN (10:34)
[2018-10-13] MEDS ORDERED: OXYCODONE-ACETAMINOPHEN 5-325 MG TABLET PO PRN ×2 (10:34)
[2018-10-13] MEDS ORDERED: PROMETHAZINE HCL INJ 25 MG/1 ML VIAL IV PRN ×2 (10:34)
[2018-10-13] MEDS ORDERED: MORPHINE SULFATE 10 MG/ML INJ IV PRN (10:34)
--- NOTE | 2018-10-13 11:29 | Discharge Summary ---
Discharge Summary (SDC) - Discharge Final Diagnosis: Biliary dyskinesia Date of Surgery: 10/13/18 Discharge Date: 10/13/18 Condition: Good Treatment or Instructions: [facility] [address], [place] [address] Discharge Instructions: Laparoscopic Surgery 1. General Information: a. DO NOT DRIVE a car or operate dangerous machinery for 3-4 days or while taking narcotic pain pills. b. DO NOT consume alcohol, tranquilizers, sleeping medications or any non- prescribed medications for 24 hours unless approved by your doctor or as long as taking narcotic prescription medications. c. DO NOT make important decisions or sign any important papers for the first 24 hours after surgery. d. When discharged home the same day of surgery have a responsible person with you for the first night. 2. Activity Restrictions: 4 weeks. a. NO heavy lifting, straining abdominal muscles, bending over a lot, yard work, house work, or sports for [address] for 3-4 days or while taking . c. It is fine to go for walks, up and down steps, ride in a car. d. Elevate your head when sleeping/resting. 3. Treatment: a. You may shower 24 hours after surgery, no baths or swimming for 2 weeks. Remove band-aids or dressings before shower but leave paper strips (steri- strips) on the skin to fall off on their own. If still on at postoperative visit they will be removed then. b. Drainage of fluid or blood is not unusual from an incision. If occurs, you can clean with peroxide and cotton ball daily and cover with dry gauze until the wound seals. c. If a lot of bleeding occurs, you can hold pressure with a gauze or cloth over the site for 10 minutes and it will usually stop. If bleeding continues you will need to call for possible evaluation in office or emergency room. 4. Medications: a. may be taken for pain as needed, one or two tablets every 4-6 hours. Stop the narcotic when able since you cannot take it and drive, and they cause constipation. You may switch to plain Tylenol, Advil or Aleve as you transition from the narcotic. Many adults find good pain relief with Advil 600-800 mg three times a day with meals. This can cause indigestion, ulcers, and kidney problems with long-term use. b. You should resume all normal medications unless a change is specified by your doctors. c. Antibiotic(s) if needed ( NONE) 5. Diet: Begin with clear liquids and may progress to your normal diet if not nauseated. No high fat, high protein foods the day of surgery. Normal diet 6. The following may occur after laparoscopic surgery: a. Shoulder or upper back ache from retained gas that should resolve in 1-2 days b. Soreness and bruising at incision sites will resolve with time. c. Scrotal swelling (labia in women) and bruising is often seen after hernia surgery. d. Sore throat e. Fatigue may last days to weeks. f. Difficulty urinating may occur and may need to come into emergency room for urinary catheter placement. 7. Notify Physician If: a. Worsening or pain not improved with pain medication b. Persistent nausea and vomiting c. Fever above 101 d. Persistent bleeding or swelling at operative site e. Unable to urinate and uncomfortable bladder 6-8 hours after surgery 8..Follow Up Care: a. Schedule a follow up appointment with your doctor for 2 weeks. In the event of any postoperative problems or questions or you may call the office during business hours or the On-Call physician evenings and weekends at [facility]. [facility] I understand the instructions for my postoperative care as described above and a copy has been given to me. __ Patient/Significant Other Witness Date Referrals: BRE HIGH MD [Primary Care Provider] - Discharge Diet: As Tolerated Discharge Activity: Activity As Tolerated Home Care Assistance: None Needed Report the Following to Your Physician Immediately: Shortness of Breath, Increase in Pain, Fever over 101 Degrees
[2018-10-13] MEDS: FENTANYL CITRATE INJ/PF 100 MCG/2 ML AMPUL ONE ×2 (11:30→11:35)
--- NOTE | 2018-10-13 11:35 | Operative Report ---
Operative Report DATE OF SURGERY: 10/13/18 PREOPERATIVE DIAGNOSIS: 1. Biliary dyskinesia. 2. Right upper quadrant pain POSTOPERATIVE DIAGNOSIS: Rule out occult appendiceal pathology OPERATION: 1. Laparoscopic cholecystectomy. 2. Laparoscopic appendectomy SURGEON: HUGO EPPERSON ANESTHESIA: GA TISSUE REMOVED OR ALTERED: 1 gallbladder; 1 appendix COMPLICATIONS: none ESTIMATED BLOOD LOSS: scant INTRAOPERATIVE FINDINGS: see below PROCEDURE: After obtaining informed consent, the patient was taken to the operating room. General Anesthesia was induced; the arms were extended, and the abdomen was exposed, and prepped and draped in a sterile fashion. Instrumentation was set up for laparoscopic cholecystectomy. Surgical plan and surgical timeout were conducted. A vertical incision was made above the umbilicus, and a verres needle was inserted uneventfully into the peritoneal cavity. Pneumoperitoneum was established. The verres needle was removed and a 5 mm trocar was inserted and a 5 mm flexible laparoscope was inserted. Visualization of the peritoneal cavity confirmed safe uneventful entry. Under direct visualization 3 additional 5 mm ports were established, one in the subxiphoid position and second in the subcostal position. Visualization of the hepatobiliary anatomy revealed no anatomic variations. A grasper was placed on the fundus of the gallbladder and the gallbladder is elevated over the right surface of the liver; a second grasper was used to grasp the infundibulum of the gallbladder. The neck of the gallbladder and junction with the cystic duct was dissected out. The Cystic artery was in its usual location medial and cephalad to the cystic duct. The cystic artery was surrounded with a right angle clamp, clipped twice proximally and divided with laparoscopic scissors. We now opened the triangle of Calot by dividing the peritoneal reflection on both the medial and lateral sides of the cystic duct infundibular junction. The critical view was obtained. We now milked the cystic duct of any possible stones, clipped the cystic duct approximately 2 times once distally and divided with scissors. The gallbladder was now removed from the undersurface of the liver using hook cautery dissection. Graspers were repositioned and the gallbladder was removed uneventfully from the abdominal cavity through the super umbilical port site incision. The specimen was examined, then passed off to pathology for permanent analysis. We returned to the peritoneal cavity check for bleeding, and evidence of bile leak, and there was none. We Confirmed satisfactory placement of clips on cystic duct and cystic artery were secured . Photos taken. The patient's appendix was visualized. It was felt to be elongated and thickened. Photos were taken. Evidence of acute inflammation pus etc. I spoke to the patient's , Steven, on the telephone during the operation. I explained to him the intraoperative findings, and progress of the operation to date. I suggested we proceed with laparoscopic appendectomy, and he agreed to proceed. The mesoappendix was taken down between small hemoclips and electrocautery. The appendiceal stump was now secured with a single application of a 0 PDS Endoloop. A clip was applied distal to the Endoloop. The appendix was divided between the distal clip and 2 additional clips on the appendiceal side. The appendix was removed from the patient to the supraumbilical site. The specimen sent to pathology. At this point we felt the operation was complete. The subcutaneous tissue was then anesthetized with quarter percent Marcaine Sponge and needle counts are correct. All ports removed under direct visualization pneumoperitoneum evacuated, and 5 mm port wounds closed with 3-0 Vicryl suture, and 0 Vicryl at the supraumbilical site. Benzoin and Steri-Strips. The patient was extubated, and taken to the recovery room in stable condition.
[2018-10-13] MEDS ORDERED: OXYCODONE-ACETAMINOPHEN 5-325 MG TABLET PO ONE (12:20)
[2018-10-13] MEDS ORDERED: OXYCODONE-ACETAMINOPHEN 5-325 MG TABLET ONE (12:21)
[2018-10-13 13:31] VITALS: BP 96/59
[2018-10-13] MEDS ORDERED: GLYCOPYRROLATE 1 MG/5 ML SYRINGE ONE (15:04)
[2018-10-13] MEDS ORDERED: SUCCINYLCHOLINE CHLORIDE INJ 200 MG/10 ML VIAL ONE (15:04)
[2018-10-13] MEDS ORDERED: DEXAMETHASONE SOD PHOSPHATE INJ 4 MG/1 ML VIAL ONE (15:04)
[2018-10-13] MEDS ORDERED: ROCURONIUM BROMIDE INJ 50 MG/5 ML VIAL IV ONE (15:04)
[2018-10-13] MEDS ORDERED: KETOROLAC TROMETHAMINE 60 MG/2 ML SDV ONE (15:04)
[2018-10-13] MEDS ORDERED: ONDANSETRON HCL INJ/PF 4 MG/2 ML SDV ONE (15:04)
[2018-10-13] MEDS ORDERED: NEOSTIGMINE METHYLSULFATE 10 MG/10 ML VIAL ONE (15:04)
== END 2018-10-13 13:40 | disposition home or self-care (01) ==
LOC: OROUT 08:22
PROVIDERS: ATTEND Surgery
DX: K81.1 Chronic cholecystitis (principal); K35.80 Unspecified acute appendicitis; J45.909 Unspecified asthma, uncomplicated; M19.90 Unspecified osteoarthritis, unspecified site; K76.0 Fatty (change of) liver, not elsewhere classified; Z79.51 Long term (current) use of inhaled steroids; Z79.899 Other long term (current) drug therapy
CPT/HCPCS: 36415; 82150; 85027; 81025; 80076; 80048; 88304 ×2; 94640; 47562; 44970; J2250; J0690; J3490 ×2; J1100; J1885; J3010 ×2; J0330; J2405; S0020; J2704; J0131; 790

== ENCOUNTER 2019-05-31 15:13 | Emergency (ER) | payer MEDICAID ==
[2019-05-31] MEDS ORDERED: DEXAMETHASONE SOD PHOS INJ 10 MG/1 ML VIAL IV ONE (16:05)
[2019-05-31] MEDS ORDERED: LEVALBUTEROL HCL NEB 1.25 MG/3 ML AMPUL NEB ONE ×4 (16:07→16:12)
[2019-05-31] MEDS ORDERED: IPRATROPIUM/ALBUTEROL 0.5-2.5 MG/3 ML AMPUL NEB ONE ×2 (16:08→16:18)
--- NOTE | 2019-05-31 16:10 | ER Document Report ---
ED General - General Chief Complaint: Asthma Exacerbation Stated Complaint: COUGH Time Seen by Provider: 05/31/19 16:04 Primary Care Provider: BRE HIGH MD [Primary Care Provider] - Follow up as needed TRAVEL OUTSIDE OF THE [place] IN LAST 30 DAYS: No - HPI Notes: 29-year-old female G7, who is approximately 35 weeks is sent by her CUSTOMER EXPERIENCE ANALYST doctor for wheezing and difficulty breathing. Several days, gradual onset, dry cough nonproductive. Never intubated. Been using multiple albuterol and inhaler treatments at home for the last couple of days and today. No fever, chills or sweats. No chest pain. No complications thus far in her . Moderate intensity, gradual onset, nonradiating. No associated pain. No other modifying factors, no other associated symptoms, no other provocative or palliative factors. - Related Data Allergies/Adverse Reactions: latex [Latex] Allergy (Severe, Verified 05/31/19 15:13) SKIN SWELLING Shellfish * [Shellfish] Allergy (Severe, Verified 05/31/19 15:13) Anaphylaxis Past Medical History - Social History Smoking Status: Unknown if Ever Smoked Family History: Reviewed & Not Pertinent, DM, Hypertension, Thyroid Disfunction - Medical History Medical History: Other - Currently - Past Medical History Cardiac Medical History: Denies: Hx Coronary Artery Disease, Hx Heart Attack, Hx Hypertension Pulmonary Medical History: Reports: Hx Asthma Denies: Hx Bronchitis, Hx COPD, Hx Pneumonia Neurological Medical History: Denies: Hx Cerebrovascular Accident, Hx Seizures Renal/ Medical History: Denies: Hx Peritoneal Dialysis Musculoskeletal Medical History: Reports Hx Arthritis - BACK, Reports Hx Musculoskeletal Deformity, Reports Hx Musculoskeletal Trauma Skin Medical History: 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 Denies: Hx Hysterectomy - Immunizations Immunizations up to date: Yes Hx Diphtheria, Pertussis, Tetanus Vaccination: - UNSURE Review of Systems - Review of Systems Notes: Review of systems as in the history of present illness, otherwise negative x 10 systems. Physical Exam - Vital signs Vitals: Temp Pulse Resp BP Pulse Ox 98.5 F 145 H 14 123/70 98 05/31/19 15:56 05/31/19 15:56 05/31/19 15:56 05/31/19 15:56 05/31/19 15:56 - Notes Notes: General: Well developed . HEENT: Normocephalic, atraumatic. Pupils equal round reactive to light. No JVD. Chest: No trauma. Respiratory: Fair air exchange, diminished breath sounds with end expiratory wheezing. Cardiac: Regular rhythm. No murmurs or gallops. Abdomen: Soft, benign. Appropriately gravid uterus consistent with dates. Back: No asymmetry or gross abnormality. Motor: Grossly normal power and tone. Neurologic: Alert, nonfocal. Cranial nerves II-12 are intact. Sensation intact. Vascular: Well perfused. Normal peripheral pulses. Skin: No petechiae or purpura. Course - Re-evaluation Re-evalutation: 05/31/19 16:09 29-year-old female presents with continued status bronchospasm and asthma exacerbation. No evidence of hypoxemic respiratory failure. Mild increased work of breathing. Plan to proceed with bronchodilators, steroids, basic labs, x-ray to exclude pneumonia, reevaluate. 05/31/19 17:09 Labs reviewed, unremarkable except for mild leukocytosis, likely physiologic. Chest x-ray reviewed by myself shows no acute infiltrate or abnormality. Patient has had marked improvement, wheezing is cleared. I am informed by nursing staff and the patient that she is currently being worked up for tachycardia during this . Apparently her resting heart rate is norm ally in the 140s. Patient is discharged home with a prescription for prednisone, will continue outpatient bronchodilators, follow closely with her OB GEN and primary care doctor in the next 24 to 48 hours. - Vital Signs Vital signs: Temp Pulse Resp BP Pulse Ox 98.5 F 145 H 19 136/67 H 100 05/31/19 15:56 05/31/19 15:56 05/31/19 16:01 05/31/19 16:01 05/31/19 16:01 - Laboratory Result Diagrams: 05/31/19 16:07 05/31/19 16:07 Laboratory results interpreted by me: 05/31/19 05/31/19 16:07 16:07 WBC 13.4 H RBC 3.51 L Hgb 9.7 L Hct 29.4 L RDW 15.5 H Absolute Neutrophils 10.0 H Sodium 136.9 L Discharge - Discharge Clinical Impression: Asthma Qualifiers: Asthma severity: moderate Asthma persistence: unspecified Asthma complication type: with acute exacerbation Qualified Code(s): J45.901 - Unspecified asthma with (acute) exacerbation Condition: Stable Disposition: HOME, SELF-CARE Instructions: Asthma ([facility]) Prescriptions: Prednisone [Deltasone 20 mg Tablet] 2 tab PO DAILY 5 Days #10 tablet Referrals: BRE HIGH MD [Primary Care Provider] - Follow up tomorrow
[2019-05-31] MEDS ORDERED: LEVALBUTEROL HCL NEB 1.25 MG/3 ML AMPUL NEB SCH (16:15)
[2019-05-31] MEDS ORDERED: RINGERS SOLUTION,LACTATED 1,000 ML IV ONE (16:17)
[2019-05-31 16:24] LABS: ABSOLUTE EOSINOPHILS # (AUTO) 0.3 10^3/uL (0.0-0.6); ABSOLUTE LYMPHOCYTES (AUTO) 2.4 10^3/uL (0.5-4.7); ABSOLUTE MONOCYTES (AUTO) 0.7 10^3/uL (0.1-1.4); BASOPHILS % (AUTO) 0.3 % (0-2); EOSINOPHILS % (AUTO) 2.2 % (0-6); HEMATOCRIT 29.4 % (36.0-47.0); HEMOGLOBIN 9.7 g/dL (12.0-15.5); LYMPHOCYTES % (AUTO) 17.7 % (13-45); MEAN CORPUSCULAR HEMOGLOBIN 27.7 pg (27.0-33.4); MEAN CORPUSCULAR VOLUME 84 fl (80-97); MONOCYTES % (AUTO) 5.3 % (3-13); PLATELET COUNT 164 10^3/uL (150-450); RED BLOOD COUNT 3.51 10^6/uL (3.72-5.28); RED CELL DISTRIBUTION WIDTH 15.5 % (11.5-14.0); SEGMENTED NEUTROPHILS % (AUTO) 74.5 % (42-78); TOTAL CELLS COUNTED % (AUTO) 100 %; WHITE BLOOD COUNT 13.4 10^3/uL (4.0-10.5)
[2019-05-31] MEDS ORDERED: ALBUTEROL SULFATE 0.042% NEB (1.25 MG/3 ML) AMPUL NEB ONE (16:26)
[2019-05-31 16:43] LABS: ANION GAP 10 (5-19); BLOOD UREA NITROGEN 7 mg/dL (7-20); CALCIUM 9.7 mg/dL (8.4-10.2); CARBON DIOXIDE 22 mmol/L (22-30); CHLORIDE 105 mmol/L (98-107); GLUCOSE 84 mg/dL (75-110)
--- NOTE | 2019-05-31 17:18 | RADIOLOGY REPORT (SQ) ---
EXAM DESCRIPTION: CHEST SINGLE VIEW COMPLETED DATE/TIME: 05/31/2019 4:54 pm REASON FOR STUDY: Dyspnea, wheezing, 35 weeks COMPARISON: 08/14/2018 EXAM PARAMETERS: NUMBER OF VIEWS: One view. TECHNIQUE: Single frontal radiographic view of the chest acquired. RADIATION DOSE: NA LIMITATIONS: None. FINDINGS: LUNGS AND PLEURA: No opacities, masses or pneumothorax. No pleural effusion. MEDIASTINUM AND HILAR STRUCTURES: No masses. Contour normal. HEART AND VASCULAR STRUCTURES: Heart normal in size. Normal vasculature. BONES: No acute findings. HARDWARE: None in the chest. OTHER: No other significant finding. IMPRESSION: NO ACUTE RADIOGRAPHIC FINDING IN THE CHEST. TECHNICAL DOCUMENTATION: JOB ID: [id number] [employer]- All Rights Reserved Reading location - IP/workstation name: [email or web address]
[2019-05-31 18:35] VITALS: BP 101/44
== END 2019-05-31 18:35 | disposition home or self-care (01) ==
LOC: ER 15:13
DX: O99.519 Diseases of the respiratory system complicating pregnancy, unspecified trimester (principal); J45.901 Unspecified asthma with (acute) exacerbation; O26.899 Other specified pregnancy related conditions, unspecified trimester; R05 Cough; O99.119 Other diseases of the blood and blood-forming organs and certain disorders involving the immune mechanism complicating pregnancy, unspecified trimester; D72.829 Elevated white blood cell count, unspecified; Z3A.00 Weeks of gestation of pregnancy not specified; Z91.040 Latex allergy status; Z87.892 Personal history of anaphylaxis; Z91.013 Allergy to seafood
CPT/HCPCS: 94640 ×2; 99285; 96361; 96374; 36415; 85025; 80048; 71045; J3490 ×2; J7120; J1100

== ENCOUNTER 2019-06-17 09:16 | Outpatient (CLI) | payer MEDICAID ==
[~2019-06-17 09:16] MED LIST changes: -ACETAMINOPHEN 325 MG TABLET PO PRN; -CEFAZOLIN 1 GM/D5W RTU 1 GM/50 ML RTUPB IV ONE; -CEFAZOLIN 1 GM/D5W RTU 1 GM/50 ML RTUPB IV PRN; +FERRIC CARBOXYMALTOSE 750 MG in NORMAL SALINE 250 ML IV PRN; -LACTATED RINGERS 1000 ML IV PRN; -LIDOCAINE 0.5% INJ-PF (5 MG/ML) 50 ML SDV SUBCUT PRN; +NORMAL SALINE 250 ML IV PRN
[2019-06-17 09:28] VITALS: BP 115/57
== END 2019-06-17 10:52 | disposition home or self-care (01) ==
LOC: II 09:16 → 5TH 09:17 → II 10:52
PROVIDERS: ATTEND Family Medicine
PROC: 3E033GC Introduction of Other Therapeutic Substance into Peripheral Vein, Percutaneous Approach (ICD-10-PCS; principal; 2019-06-17)
DX: O99.019 Anemia complicating pregnancy, unspecified trimester (principal)
CPT/HCPCS: 96365; J7050; J1439

== ENCOUNTER 2019-06-22 14:17 | Outpatient (CLI) | payer MEDICAID | END 2019-06-22 15:15 | disposition home or self-care (01) | LOC: LC 14:17 | PROVIDERS: ATTEND Obstetrics & Gynecology | PROC: 4A1HXCZ Monitoring of Products of Conception, Cardiac Rate, External Approach (ICD-10-PCS; principal; 2019-06-22) | DX: Z34.93 Encounter for supervision of normal pregnancy, unspecified, third trimester (principal) | CPT/HCPCS: 59025 ==

== ENCOUNTER 2019-06-23 15:21 | Inpatient (IN) | payer MEDICAID ==
--- NOTE | 2019-06-23 15:33 | Non Stress Test Report ---
Non Stress Test Datetime Report Generated by CPN: 06/23/2019 15:33 DEMOGRAPHIC EGA NST: 38.3 INDICATION Indication for Study: Ordered by Provider VITAL SIGNS Temperature - NST: 98.7 MONITORING Monitor Explained: Monitor Explained; Test Explained; Patient Verbalized Understanding Time on Monitor: 06/22/2019 14:27 Time off Monitor: 06/22/2019 15:21 NST Duration: 54 NST INTERVENTIONS NST Interventions: Reposition Patient Physician Notified NST: C. Milan CNM on unit, reviewed fht BABY A: [id number] BABY A Movement : Present Contraction Frequency : none FHR Baseline : 135 Accelerations : 15X15 Decelerations : None Variability : Moderate 6-25bpm NST Review: Meets Criteria for Reactive NST NST Review and Verified By : Niles Cruz RN NST Results: Reactive NST REPORT Report Trigger: Send Report
[2019-06-23 16:11] LABS: APPEARANCE,URINE CLOUDY; BILIRUBIN,URINE NEGATIVE (NEGATIVE); COLOR,URINE YELLOW; GLUCOSE, URINE NEGATIVE (NEGATIVE); KETONES,URINE NEGATIVE (NEGATIVE); LEUKOCYTE ESTERASE,URINE LARGE (NEGATIVE); NITRITE,URINE NEGATIVE (NEGATIVE); PROTEIN,URINE NEGATIVE (NEGATIVE); URINE SPECIFIC GRAVITY 1.008; UROBILINOGEN,URINE NEGATIVE mg/dL (<2.0)
[2019-06-23 16:26] LABS: URINE AMPHETAMINES SCREEN NEGATIVE; URINE BARBITURATES SCREEN NEGATIVE; URINE BENZODIAZEPINES SCREEN NEGATIVE; URINE COCAINE SCREEN NEGATIVE; URINE MARIJUANA (THC) SCREEN NEGATIVE; URINE METHADONE SCREEN NEGATIVE; URINE PHENCYCLIDINE SCREEN NEGATIVE
[2019-06-23 16:31] LABS: HEMATOCRIT 29.3 % (36.0-47.0); HEMOGLOBIN 9.6 g/dL (12.0-15.5); MEAN CORPUSCULAR HEMOGLOBIN 27.5 pg (27.0-33.4); MEAN CORPUSCULAR HGB CONC 32.9 g/dL (32.0-36.0); MEAN CORPUSCULAR VOLUME 84 fl (80-97); PLATELET COUNT 156 10^3/uL (150-450); RED CELL DISTRIBUTION WIDTH 16.1 % (11.5-14.0); WHITE BLOOD COUNT 11.2 10^3/uL (4.0-10.5)
[2019-06-23 16:48] LABS: ALBUMIN 3.3 g/dL (3.5-5.0); ALKALINE PHOSPHATASE 173 U/L (38-126); ANION GAP 7 (5-19); ASPARTATE AMINO TRANSFERASE 38 U/L (14-36); BILIRUBIN,DIRECT 0.3 mg/dL (0.0-0.4); BILIRUBIN,TOTAL 0.5 mg/dL (0.2-1.3); BLOOD UREA NITROGEN 6 mg/dL (7-20); CALCIUM 9.7 mg/dL (8.4-10.2); CARBON DIOXIDE 23 mmol/L (22-30); CHLORIDE 104 mmol/L (98-107); GLUCOSE 86 mg/dL (75-110); POTASSIUM 4.1 mmol/L (3.6-5.0); TOTAL PROTEIN 5.9 g/dL (6.3-8.2)
[2019-06-23 16:54] LABS: ABSOLUTE LYMPHOCYTES# (MANUAL) 2.5 10^3/uL (0.5-4.7); ABSOLUTE MONOCYTES # (MANUAL) 0.7 10^3/uL (0.1-1.4); BAND NEUTROPHILS % (MANUAL) 1 % (3-5); BASOPHILS % (MANUAL) 0 % (0-2); EOSINOPHILS % (MANUAL) 2 % (0-6); LYMPHOCYTES % (MANUAL) 22 % (13-45); MONOCYTES % (MANUAL) 6 % (3-13); SEGMENTED NEUTROPHILS % (MAN) 69 % (42-78); TOTAL CELLS COUNTED 100
[2019-06-23 16:55] LABS: ANISOCYTOSIS SLIGHT; PLATELET COMMENT ADEQUATE; POLYCHROMASIA SLIGHT
[2019-06-23] MEDS ORDERED: RINGERS SOLUTION,LACTATED 1,000 ML IV ONE (17:38)
[2019-06-23] MEDS ORDERED: RINGERS SOLUTION,LACTATED 1,000 ML IV PRN ×2 (17:38→23:04)
[2019-06-23] MEDS ORDERED: HYDROXYZINE PAMOATE 50 MG CAPSULE ONE (19:16)
[2019-06-23] MEDS ORDERED: HYDROXYZINE PAMOATE 50 MG CAPSULE PO ONE (19:20)
[2019-06-23] MEDS ORDERED: NALBUPHINE HCL INJ 10 MG/1 ML AMPULE ONE (20:44)
[2019-06-23] MEDS ORDERED: NALBUPHINE HCL INJ 10 MG/1 ML AMPULE INJ ONE (20:51)
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
[2019-06-23] MEDS ORDERED: CITRIC ACID/SODIUM CITRATE ORAL SOLN 15 ML UDCUP ONE (21:30)
[2019-06-23] MEDS ORDERED: ONDANSETRON HCL INJ/PF 4 MG/2 ML SDV ONE (21:31)
[2019-06-23] MEDS ORDERED: PHENYLEPHRINE HCL INJ/PF 10 MG/1 ML SDV ONE (21:32)
[2019-06-23] MEDS ORDERED: OXYTOCIN 10 UNIT/ML VIAL ONE (21:32)
[2019-06-23 21:35] LABS: HEMATOCRIT 28.1 % (36.0-47.0); HEMOGLOBIN 9.2 g/dL (12.0-15.5); MEAN CORPUSCULAR HEMOGLOBIN 27.6 pg (27.0-33.4); MEAN CORPUSCULAR HGB CONC 32.7 g/dL (32.0-36.0); MEAN CORPUSCULAR VOLUME 85 fl (80-97); PLATELET COUNT 150 10^3/uL (150-450); RED BLOOD COUNT 3.32 10^6/uL (3.72-5.28); RED CELL DISTRIBUTION WIDTH 16.2 % (11.5-14.0); WHITE BLOOD COUNT 11.5 10^3/uL (4.0-10.5)
[2019-06-23] MEDS ORDERED: METHYLERGONOVINE MALEATE INJ/PF 0.2 MG/1 ML AMPULE ONE (21:43)
[2019-06-23] MEDS ORDERED: CEFAZOLIN INJ 1 GM VIAL ONE (21:54)
[2019-06-23 22:04] LABS: ABSOLUTE LYMPHOCYTES# (MANUAL) 3.1 10^3/uL (0.5-4.7); ABSOLUTE MONOCYTES # (MANUAL) 0.6 10^3/uL (0.1-1.4); BAND NEUTROPHILS % (MANUAL) 4 % (3-5); BASOPHILS % (MANUAL) 0 % (0-2); EOSINOPHILS % (MANUAL) 2 % (0-6); LYMPHOCYTES % (MANUAL) 26 % (13-45); MONOCYTES % (MANUAL) 5 % (3-13); SEGMENTED NEUTROPHILS % (MAN) 62 % (42-78); TOTAL CELLS COUNTED 100
[2019-06-23 22:05] LABS: ANISOCYTOSIS 1+; PLATELET COMMENT ADEQUATE
[2019-06-23] MEDS ORDERED: MIDAZOLAM 2 MG/2 ML INJ ONE (22:22)
--- NOTE | 2019-06-23 22:50 | PDOC DELIVERY SUMMARY ---
Delivery Summary - Maternal Hx : VII Hx Para: III Hx # Term Pregnancies: 3 Hx Total # of Abortions (Sponateous & Elective): 3 Number of Living Children: 3 LAI: 07/03/19 Gestational Age: 38.4 Risk Factors: Polyhydramnios, Other - suspected macrosomia - Delivery Presentation: Vertex Uterine Contraction Monitoring: External Support Person Present: Yes Location: LD : Primary Placenta: Within Normal Limits Placenta Description: normal appearing Number of Vessels (Cord): 3 Nuchal Cord: No Delivery of Placenta Date: 06/23/19 Estimated Blood Loss: 1000 ml - Medications Type of Anesthesia:: Spinal - Delivery Personnel MD: LACHELLE ESCOBAR
[2019-06-23] MEDS ORDERED: MORPHINE SULFATE 10 MG/ML INJ ONE (22:54)
[2019-06-23] MEDS ORDERED: HYDROMORPHONE HCL INJ/PF 2 MG/ML AMPULE IV PRN (23:04)
[2019-06-23] MEDS ORDERED: OXYTOCIN/NORMAL SALINE 20 UNIT/1,000 ML RTUINJ IV PRN ×2 (23:04→23:30)
[2019-06-23] MEDS ORDERED: ACETAMINOPHEN 325 MG TABLET PO PRN (23:04)
[2019-06-23] MEDS ORDERED: DIPH/PERTUSS(ACELL)/TETANUS VAC/PF 0.5 ML SYR (>=10YO) IM PRN (23:04)
[2019-06-23] MEDS ORDERED: PROMETHAZINE HCL INJ 25 MG/1 ML VIAL IV PRN (23:04)
[2019-06-23] MEDS ORDERED: ACETAMINOPHEN 1,000 MG/100 ML RTUPB IV PRN (23:04)
[2019-06-23] MEDS ORDERED: OXYCODONE-ACETAMINOPHEN 5-325 MG TABLET PO PRN (23:04)
--- NOTE | 2019-06-23 23:04 | Operative Report ---
Operative Report DATE OF SURGERY: 06/23/19 PREOPERATIVE DIAGNOSIS: 1. Intrauterine at 38-4/7 weeks. 2. Labor. 3. GBS Positive. 4. h/o shoulder dystocia. 5. h/o macrosomia x 3. 6. h/o 4th degree laceration. 7. Desires Permanent Sterilization. 8. Rh Negative. 9. Asthma. 10. Anemia. 11. Plyhydramnios. 12. Rubella Immune POSTOPERATIVE DIAGNOSIS: Same OPERATION: 1. Primary Low Transverse Section. 2. Bilateral Tubal Occlusion with Filshie Clips SURGEON: LACHELLE BRANTLEY ANESTHESIA: Spinal TISSUE REMOVED OR ALTERED: Placenta COMPLICATIONS: none ESTIMATED BLOOD LOSS: 1000 ml INTRAOPERATIVE FINDINGS: Male fetus with a cephalic presentation; APGARS 8, 9; weight 9# 14 oz; Normal uterus, bilateral tubes and ovaries PROCEDURE: The patient was taken to the operating room where spinal anesthesia was obtained and found to be adequate. She was then prepped and draped in the normal sterile fashion and placed in the dorsal supine position with a leftward tilt. A Pfannenstiel skin incision was then made and carried through to the underlying layers of the fascia with the scalpel. The fascia was incised in the midline and the incision extended laterally with the May scissors. The superior aspect of the fascial incision was then grasped with Ernie clamps elevated and the underlying rectus muscles dissected off both bluntly and sharply. Attention was then turned to the inferior aspect of the fascial incision which in a similar fashion was grasped, tented up with Ernie clamps, and the rectus muscles dissected off both bluntly and sharply. The rectus muscles were then in the midline and the peritoneum was identified and entered both sharply and bluntly. The peritoneal incision was then extended superiorly and inferiorly with good visualization of the bladder. The bladder blade was inserted and the vesicouterine peritoneum identified grasped with Qatari pickups and entered sharply with the Metzenbaum scissors. This incision was then extended laterally with the Metzenbaum scissors and a bladder flap created digitally. The bladder blade was then reinserted and the lower uterine segment incised in a transverse fashion with the scalpel. The uterine incision was then extended bluntly and with the bandage scissors. The bladder blade was removed and the 's head was delivered from cephalic presentation atraumatically. The cord doubly clamped and cut. The was handed off to waiting smoking pipe liner. The placenta was then delivered manually and the uterus was cleared of all clots and debris. The uterine incision was then repaired with 0 Vicryl in a running locked fashion. 0-Chromic was used to obtain hemostasis via imbrication of the initial layer. Attention was then turned tot he sterilization. The left fallopian tube was identified and grasped with a Marita clamp. It was followed down to the fimbria. A Filshie clip was then place on the mid portion of the tube. Hemostasis was noted. The same was performed on the right fallopian tube and hemostasis was noted. Interceed was placed overlying the uterine incision, as well as a piece placed vertically on the anterior surface of the uterus, to prevent adhesions. The gutters were cleared of all clots and debris. All operative sites were noted to be hemostatic. The peritoneum was closed in a running fashion with 2-0 Vicryl. The fascia was reapproximated with 0 Vicryl in a running fashion from each lateral edge to the midline. The subcutaneous fat layer was then closed in an interrupted fashion with 3-0 vicryl. The skin was closed with 4-0 Monocryl in a running, subcuticular fashion. The patient tolerated the procedure well. Sponge, lap, needle and instrument counts are correct x 2. 2 g of Ancef were given prior to skin incision. The patient was taken to the recovery area awake and in stable condition.
[2019-06-23] MEDS ORDERED: MISOPROSTOL 0.2 MG TABLET ONE (23:34)
[2019-06-23] MEDS ORDERED: ACETAMINOPHEN 1,000 MG/100 ML RTUPB IV ONE (23:52)
[2019-06-24] MEDS ORDERED: OXYTOCIN/NORMAL SALINE 20 UNIT/1,000 ML RTUINJ ONE
[2019-06-24] MEDS ORDERED: HYDROMORPHONE HCL INJ/PF 2 MG/ML AMPULE ONE (00:38)
[2019-06-24] MEDS ORDERED: IBUPROFEN 800 MG TABLET ONE (01:01)
[2019-06-24] MEDS: IBUPROFEN 800 MG TABLET PO SCH ×3 (01:02→23:25)
--- NOTE | 2019-06-24 04:10 | Delivery Summary ---
Del Sum A-C Datetime Report Generated by CPN: 06/24/2019 04:10 DELIVERY PERSONNEL DELIVERY PERSONNEL: [id number] Delivery Doctor:: Eli Mai MD LUNCHROOM SUPERVISOR:: Camden Sullivan CRNA Labor and Delivery Nurse:: Ministerio Garza RNphys ther Nurse:: [place] RN Transport Technician:: Ministerio Garza RN Neonatal Nurse Practitioner:: STEVE Patel Nursery Nurse:: Yvrose Hansen RN Mailing Jogger/SCHEDULE ANNOUNCER: ST Ric Mailing Jogger/SCHEDULE ANNOUNCER: Marisa Uriostegui, ST MATERNAL INFORMATION Delivery Anesthesia: Spinal Medications After Delivery: Pitocin Bolus-Please Comment; Pitocin Drip 20 Units/1000ml NSS; Methergine 0.2mg IM; Cytotec 1000mcg Per Rectum/Vagina Meds After Delivery Comment: Pitocin 20 units in 1000 NS Delivery QBL: 910 Maternal Complications: None LABOR SUMMARY EDC: 07/03/2019 00:00 No. Babies in Womb: 1 Attempted: No LABOR INFORMATION Reason for Induction: Not Applicable Onset of Labor: 06/24/2019 20:53 Oxytocin: N/A Group B Beta Strep: positive Antibiotics # of Doses: 0 Steroids Given: None Reason Steroids Not Administered: Not Applicable MEMBRANES Membranes Rupture Method: Artificial Rupture of Membranes: 06/23/2019 22:09 Length of Rupture (hr): 0.02 Amniotic Fluid Color: Clear Amniotic Fluid Amount: Large Amniotic Fluid Odor: Normal STAGES OF LABOR Stage 3 hr: 0 Stage 3 min: 1 Total Time in Labor hr: -22 Total Time in Labor min: -42 VAGINAL DELIVERY Episiotomy: None Laceration #1: None Laceration Extension #1: N/A Laceration Repair: Not Applicable Sponge Count Correct: Yes Sharps Count Correct: Yes CSECTION DELIVERY Primary Indication: Other Other Primary Indication: Macrosomnia Secondary Indication: N/A CSection Incidence: N/A Labor: N/A Elective: N/A CSection Incision: Lower Uterine Transverse BABY A INFORMATION Delivery Date/Time: 06/23/2019 22:10 Method of Delivery: Born in Route : No : N/A Forceps: N/A Vacuum Extraction: N/A Shoulder Dystocia : No PRESENTATION/POSITION BABY A Presentation: Cephalic Cephalic Presentation: Vertex Vertex Position: Left Occipital Anterior Breech Presentation: N/A PLACENTA INFORMATION BABY A Placenta Delivery Time : 06/23/2019 22:11 Placenta Method of Delivery: Manual Removal Placenta Status: Delivered SCORES BABY A Heart Rate 1 min: >100 bpm Resp Effort 1 min: Good Cry Reflex Irritability 1 min: Cough or Sneeze or Pulls Away Muscle Tone 1 min: Active Motion Color 1 min: Blue/Pale Resuscitation Effort 1 min: Tactile Stimulation SCORE 1 MIN: 8 Heart Rate 5 min: >100 bpm Resp Effort 5 min: Good Cry Reflex Irritability 5 min: Cough or Sneeze or Pulls Away Muscle Tone 5 min: Active Motion Color 5 min: Body [place], Extremities Blue SCORE 5 MIN: 9 INFANT INFORMATION BABY A Gestational Age at Delivery: 38.4 Gestational Status: Early Term- 37- 38.6 Weeks Outcome : Liveborn Condition : Stable Sex: Male IDENTIFICATION BABY A Verification Date/Time: 06/23/2019 22:52 ID Band Number: [id number] Mother's Name Verified: Yes Infant RN Verifying Infant: K Greg RN Additional Verifying Personnel: T Marck RN WEIGHT/LENGTH BABY A Birthweight (gm): 4490 Infant Weight (lb): 9 Weight (oz): 14 Length (in): 21.50 Length (cm): 54.61 CORD INFORMATION BABY A No. Cord Vessels: 3 Nuchal Cord : N/A Cord Blood Taken: Yes-For Eval (Mom's Blood Type - or O+) Infant Suction: None ASSESSMENT BABY A Skin to Skin: Yes BABY B INFORMATION : N/A
[2019-06-24 05:44] LABS: HEMATOCRIT 25.5 % (36.0-47.0); HEMOGLOBIN 8.5 g/dL (12.0-15.5); MEAN CORPUSCULAR HEMOGLOBIN 28.2 pg (27.0-33.4); MEAN CORPUSCULAR HGB CONC 33.5 g/dL (32.0-36.0); MEAN CORPUSCULAR VOLUME 84 fl (80-97); PLATELET COUNT 120 10^3/uL (150-450); RED BLOOD COUNT 3.03 10^6/uL (3.72-5.28); RED CELL DISTRIBUTION WIDTH 16.4 % (11.5-14.0); WHITE BLOOD COUNT 10.6 10^3/uL (4.0-10.5)
[2019-06-24] MEDS ORDERED: KETOROLAC TROMETHAMINE INJ/PF 30 MG/1 ML SDV IV SCH (06:00)
[2019-06-24] MEDS: OXYCODONE-ACETAMINOPHEN 5-325 MG TABLET PO PRN ×3 (06:24→16:50)
--- NOTE | 2019-06-24 08:07 | PDOC PROGRESS REPORT ---
Subjective-OB Progress Note for:: 06/24/19 Subjective: pt states she feels well Physical Exam (OB) Vital Signs: Temp Pulse Resp BP Pulse Ox 98.2 F 90 16 114/64 96 06/24/19 06:07 06/24/19 06:07 06/24/19 06:07 06/24/19 06:07 06/24/19 06:07 Intake & Output 06/23/19 06/24/19 06/25/19 06:59 06:59 06:59 Intake Total 240 Output Total 350 Balance -110 Weight 98.3 kg - General General Appearance: Appears well - PIH/Pre-Eclampsia Headache: Absent Epigastric Pain: No Visual Changes: No - Dressing Removed: Yes - opsite Incision: Dressing, Well Approximated - Lochia Lochia Amount: Small 10-25 ml Lochia Color: Rubra/Red - Abdomen Description: Soft, Round Hernia Present: No Bowel Sounds: Normoactive Flatus Presence: Present Stool: No Fundal Description: Firm, Midline Fundal Height: u/u - u/2 - Respiratory Breath sounds: Clear - Extremities Calf: Nontender Objective-Diagnostic Laboratory: 06/24/19 05:40 06/23/19 16:20 06/23/19 06/23/19 06/23/19 15:45 16:20 16:20 WBC 11.2 H RBC 3.50 L Hgb 9.6 L Hct 29.3 L MCV 84 MCH 27.5 MCHC 32.9 RDW 16.1 H Plt Count 156 Seg Neutrophils % Not Reportable Sodium 134.0 L Potassium 4.1 Chloride 104 Carbon Dioxide 23 Anion Gap 7 BUN 6 L Creatinine 0.51 L Est GFR ( Amer) > 60 Glucose 86 Calcium 9.7 Total Bilirubin 0.5 AST 38 H Alkaline Phosphatase 173 H Total Protein 5.9 L Albumin 3.3 L TSH Urine Color YELLOW Urine Appearance CLOUDY Urine pH 6.0 Ur Specific [place] 1.008 Urine Protein NEGATIVE Urine Glucose (UA) NEGATIVE Urine Ketones NEGATIVE Urine Blood NEGATIVE Urine Nitrite NEGATIVE Ur Leukocyte Esterase LARGE H Blood Type Antibody Screen 06/23/19 06/23/19 06/23/19 16:20 21:26 21:26 WBC 11.5 H RBC 3.32 L Hgb 9.2 L Hct 28.1 L MCV 85 MCH 27.6 MCHC 32.7 RDW 16.2 H Plt Count 150 Seg Neutrophils % Not Reportable Sodium Potassium Chloride Carbon Dioxide Anion Gap BUN Creatinine Est GFR ( Amer) Glucose Calcium Total Bilirubin AST Alkaline Phosphatase Total Protein Albumin TSH 1.82 Urine Color Urine Appearance Urine pH Ur Specific [place] Urine Protein Urine Glucose (UA) Urine Ketones Urine Blood Urine Nitrite Ur Leukocyte Esterase Blood Type O NEGATIVE Antibody Screen POSITIVE 06/24/19 05:40 WBC 10.6 H RBC 3.03 L Hgb 8.5 L Hct 25.5 L MCV 84 MCH 28.2 MCHC 33.5 RDW 16.4 H Plt Count 120 L Seg Neutrophils % Sodium Potassium Chloride Carbon Dioxide Anion Gap BUN Creatinine Est GFR ( Amer) Glucose Calcium Total Bilirubin AST Alkaline Phosphatase Total Protein Albumin TSH Urine Color Urine Appearance Urine pH Ur Specific [place] Urine Protein Urine Glucose (UA) Urine Ketones Urine Blood Urine Nitrite Ur Leukocyte Esterase Blood Type Antibody Screen Assessment and Plan(PN) - Time Spent with Patient Time with patient: Less than 15 minutes Medications reviewed and adjusted accordingly: Yes - Disposition Anticipated Discharge: Home Within: within 24 hours - routine post care
[2019-06-24] MEDS ORDERED: IRON SUCROSE COMPLEX INJ/PF 100 MG/5 ML SDV IV ONE (09:00)
[2019-06-24] MEDS: KETOROLAC TROMETHAMINE INJ/PF 30 MG/1 ML SDV IV SCH ×3 (09:37→23:26)
[2019-06-24] MEDS: DOCUSATE SODIUM 100 MG CAPSULE PO SCH ×2 (09:37→17:39)
[2019-06-24] MEDS: PRENATAL VITAMIN W DHA CAPSULE PO SCH (09:37)
[2019-06-24] MEDS: SIMETHICONE 80 MG TAB.CHEW PO PRN ×2 (17:03→23:30)
[2019-06-25] MEDS: IBUPROFEN 800 MG TABLET PO SCH ×2 (05:58→11:27)
--- NOTE | 2019-06-25 10:29 | PDOC DISCHARGE SUMMARY ---
Final Diagnosis Discharge Date: 06/25/19 - POD #2, doing well, desires to go home today. O negative, Rubella Immune, . s/p Primary for Macrosomia - Final Diagnosis (1) S/P primary low transverse Is this a current diagnosis for this admission?: Yes (2) Acute blood loss as cause of postoperative anemia Is this a current diagnosis for this admission?: Yes (3) Macrosomia affecting management of mother in third trimester, single gestation Is this a current diagnosis for this admission?: Yes (4) Term of infant Is this a current diagnosis for this admission?: Yes Discharge Data - Discharge Medication Prescriptions: Ferrous Sulfate [Feosol 325 mg Tablet] 325 mg PO DAILY #30 tablet Ibuprofen [Motrin 800 mg Tablet] 800 mg PO Q6 #60 tablet Oxycodone HCl/Acetaminophen [Percocet 5-325 mg Tablet] 1 tab PO Q4HP PRN #28 tablet PRN Reason: Pain Scale Of 3 Home Medications: Albuterol Sulfate [Proair HFA] 2 puff IH Q4 PRN 05/13/18 Vit No.130/Iron/Folic [ Tablet] 1 each PO DAILY 06/23/19 Ferrous Sulfate [Feosol 325 mg Tablet] 325 mg PO DAILY #30 tablet 06/25/19 Ibuprofen [Motrin 800 mg Tablet] 800 mg PO Q6 #60 tablet 06/25/19 Oxycodone HCl/Acetaminophen [Percocet 5-325 mg Tablet] 1 tab PO Q4HP PRN #28 tablet 06/25/19 Reason(s) for Admission: Onset of Labor, Ceasarean Section-Primary Procedures: NST, Ultrasound Intrapartum Procedure(s): : Low Cervical, Transverse - Diagnosis Test Laboratory: Temp Pulse Resp BP Pulse Ox 97.7 F 90 18 111/65 98 06/25/19 10:18 06/25/19 10:18 06/25/19 10:18 06/25/19 10:18 06/25/19 10:18 06/23/19 06/23/19 06/23/19 15:45 16:20 21:26 RBC 3.50 L 3.32 L Hgb 9.6 L 9.2 L Hct 29.3 L 28.1 L Urine Opiates Screen NEGATIVE 09/06/19 05:40 RBC 3.03 L Hgb 8.5 L Hct 25.5 L Urine Opiates Screen - Discharge information/Instructions Discharge Activity: Activity As Tolerated, No Driving, No Lifting Over 10 Pounds, Pelvic Rest Discharge Diet: As Tolerated, Regular Disposition: HOME, SELF-CARE Follow up with: [facility] in: 1, Weeks - for incision check
[2019-06-25] MEDS: KETOROLAC TROMETHAMINE INJ/PF 30 MG/1 ML SDV IV SCH (10:41)
[2019-06-25] MEDS ORDERED: FERROUS SULFATE 325 MG TABLET PO SCH (11:00)
[2019-06-25] MEDS: DOCUSATE SODIUM 100 MG CAPSULE PO SCH (11:27)
[2019-06-25] MEDS: PRENATAL VITAMIN W DHA CAPSULE PO SCH (11:27)
[2019-06-25 13:21] VITALS: BP 116/72
== END 2019-06-25 13:50 | disposition home or self-care (01) | DRG 784 ==
LOC: LC 15:21 → LR 21:02 → 2S 06-24 01:20
PROVIDERS: ADMIT Obstetrics & Gynecology; ATTEND Obstetrics & Gynecology
PROC: 10D00Z1 Extraction of Products of Conception, Low, Open Approach (ICD-10-PCS; principal; 2019-06-23)
PROC: 0UL70CZ Occlusion of Bilateral Fallopian Tubes with Extraluminal Device, Open Approach (ICD-10-PCS; 2019-06-23)
DX: O36.63X0 Maternal care for excessive fetal growth, third trimester, not applicable or unspecified (principal); D62 Acute posthemorrhagic anemia; Z30.2 Encounter for sterilization; O99.824 Streptococcus B carrier state complicating childbirth; O90.81 Anemia of the puerperium; O40.3XX0 Polyhydramnios, third trimester, not applicable or unspecified; Z91.040 Latex allergy status; Z91.013 Allergy to seafood; Z3A.38 38 weeks gestation of pregnancy; Z37.0 Single live birth
CPT/HCPCS: 1961; 36415; 80053; 80307; 81005; 83036; 84443; 85025; 85027; 86592; 86850; 86870; 86900; 86901; 88307; 94799; J0131; J0690; J1170; J1756; J1885; J2210; J2250; J2270; J2300; J2370; J2405; J2590; J3490

== ENCOUNTER 2019-07-03 15:20 | Inpatient (IN) | payer MEDICAID ==
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
[2019-07-03 16:12] LABS: APPEARANCE,URINE CLEAR; BILIRUBIN,URINE NEGATIVE (NEGATIVE); COLOR,URINE YELLOW; GLUCOSE, URINE NEGATIVE (NEGATIVE); KETONES,URINE NEGATIVE (NEGATIVE); LEUKOCYTE ESTERASE,URINE LARGE (NEGATIVE); NITRITE,URINE NEGATIVE (NEGATIVE); PROTEIN,URINE NEGATIVE (NEGATIVE); URINE SPECIFIC GRAVITY 1.028
[2019-07-03 16:13] LABS: ABSOLUTE BASOPHILS # (AUTO) 0.1 10^3/uL (0.0-0.2); ABSOLUTE EOSINOPHILS # (AUTO) 0.3 10^3/uL (0.0-0.6); ABSOLUTE LYMPHOCYTES (AUTO) 1.9 10^3/uL (0.5-4.7); ABSOLUTE MONOCYTES (AUTO) 0.5 10^3/uL (0.1-1.4); ABSOLUTE NEUT (AUTO) 3.7 10^3/uL (1.7-8.2); BASOPHILS % (AUTO) 0.8 % (0-2); HEMATOCRIT 28.9 % (36.0-47.0); HEMOGLOBIN 9.7 g/dL (12.0-15.5); LYMPHOCYTES % (AUTO) 29.8 % (13-45); MEAN CORPUSCULAR HEMOGLOBIN 28.6 pg (27.0-33.4); MEAN CORPUSCULAR HGB CONC 33.6 g/dL (32.0-36.0); MEAN CORPUSCULAR VOLUME 85 fl (80-97); MONOCYTES % (AUTO) 7.8 % (3-13); PLATELET COUNT 240 10^3/uL (150-450); RED BLOOD COUNT 3.39 10^6/uL (3.72-5.28); RED CELL DISTRIBUTION WIDTH 18.6 % (11.5-14.0); SEGMENTED NEUTROPHILS % (AUTO) 57.6 % (42-78); TOTAL CELLS COUNTED % (AUTO) 100 %; WHITE BLOOD COUNT 6.4 10^3/uL (4.0-10.5)
[2019-07-03 16:21] LABS: ALBUMIN 3.5 g/dL (3.5-5.0); ALKALINE PHOSPHATASE 110 U/L (38-126); ANION GAP 8 (5-19); ASPARTATE AMINO TRANSFERASE 20 U/L (14-36); BILIRUBIN,DIRECT 0.1 mg/dL (0.0-0.4); BILIRUBIN,TOTAL 0.4 mg/dL (0.2-1.3); BLOOD UREA NITROGEN 17 mg/dL (7-20); CALCIUM 8.9 mg/dL (8.4-10.2); CARBON DIOXIDE 25 mmol/L (22-30); CHLORIDE 107 mmol/L (98-107); GLUCOSE 87 mg/dL (75-110)
--- NOTE | 2019-07-03 16:22 | RADIOLOGY REPORT (SQ) ---
EXAM DESCRIPTION: CHEST SINGLE VIEW COMPLETED DATE/TIME: 07/03/2019 4:07 pm REASON FOR STUDY: cough, cp COMPARISON: 05/31/2019 NUMBER OF VIEWS: One view. TECHNIQUE: Single frontal radiographic view of the chest acquired. LIMITATIONS: None. FINDINGS: LUNGS AND PLEURA: Peribronchial cuffing and interstitial changes. No consolidation, pneumo thorax. Small bilateral effusions. MEDIASTINUM AND HILAR STRUCTURES: No masses. Contour normal. HEART AND VASCULAR STRUCTURES: Heart normal in size. Normal vasculature. BONES: No acute findings. HARDWARE: None in the chest. OTHER: No other significant finding. IMPRESSION: REACTIVE AIRWAY DISEASE VERSUS VIRAL SYNDROME. NO CONSOLIDATION. Small bilateral effusions. TECHNICAL DOCUMENTATION: JOB ID: [id number] [employer]- All Rights Reserved Reading location - IP/workstation name: [email or web address]
[2019-07-03 16:32] LABS: NT PRO BNP 1030 pg/mL (<125)
[2019-07-03 16:33] LABS: TROPONIN I < 0.012 ng/mL
--- NOTE | 2019-07-03 16:53 | ER Document Report ---
ED General - General Chief Complaint: Chest Pain Stated Complaint: CHEST PAIN Time Seen by Provider: 07/03/19 15:34 Mode of Arrival: Ambulatory Information source: Patient Notes: Patient presents 10 days status post . Patient G7, P4. Patient states that she had a due to large birthweight baby. Patient states during her she did have some tachycardia and was supposed to followed up with a stuffing machine operator but never received her referral. Patient states that since the delivery she has had bradycardia. Patient states that she is able to monitor this and she wears a Fitbit watch. Patient reports shortness of breath and inability to lay supine at night. Patient complains of bilateral peripheral edema since delivery. Patient did see her LENS MATCHER 5 days ago for this and was prescribed Lasix 20 mg daily. Patient denies any improvement in her peripheral edema. Patient denies any cough symptoms. Patient does report a heaviness to the chest that is present when lying supine. TRAVEL OUTSIDE OF THE [place] IN LAST 30 DAYS: No - HPI Onset: Other - 10 days Onset/Duration: Persistent Quality of pain: Other - Heaviness Pain Level: 1 Associated symptoms: Chest pain, Shortness of breath. denies: Fever, Headache, Nausea - She Exacerbated by: Denies Relieved by: Denies Similar symptoms previously: No Recently seen / treated by doctor: No - Related Data Allergies/Adverse Reactions: latex [Latex] Allergy (Severe, Verified 07/03/19 15:25) SKIN SWELLING Shellfish * [Shellfish] Allergy (Severe, Verified 07/03/19 15:25) Anaphylaxis Past Medical History - General Information source: Patient - Social History Smoking Status: Never Smoker Chew tobacco use (# tins/day): No Frequency of alcohol use: None Drug Abuse: None Lives with: Family Family History: Reviewed & Not Pertinent, DM, Hypertension, Thyroid Disfunction Patient has suicidal ideation: No Patient has homicidal ideation: No Pulmonary Medical History: Reports: Hx Asthma Neurological Medical History: Denies: Hx Cerebrovascular Accident, Hx Seizures Renal/ Medical History: Denies: Hx Peritoneal Dialysis Musculoskeletal Medical History: Reports Hx Arthritis - BACK, Reports Hx Musculoskeletal Deformity, Reports Hx Musculoskeletal Trauma Skin Medical History: Reports Hx MRSA - arm Infectious Medical History: Reports: Hx MRSA Past Surgical History: Reports: Hx Appendectomy, Hx Dilation and Curettage, Hx Gynecologic Surgery - D&C, Hx Tubal Ligation - Immunizations Immunizations up to date: Yes Hx Diphtheria, Pertussis, Tetanus Vaccination: - UNSURE Review of Systems - Review of Systems Constitutional: No symptoms reported. denies: Fever, Recent illness EENT: No symptoms reported Cardiovascular: Chest pain, Orthopnea Respiratory: Short of breath Gastrointestinal: No symptoms reported. denies: Nausea, Vomiting Genitourinary: No symptoms reported. denies: Dysuria Female Genitourinary: Vaginal bleeding Musculoskeletal: Leg swelling. denies: Back pain Skin: No symptoms reported Hematologic/Lymphatic: No symptoms reported Neurological/Psychological: No symptoms reported. denies: Headaches Physical Exam - Vital signs Vitals: Temp Pulse Resp BP Pulse Ox 98.3 F 70 18 146/80 H 95 07/03/19 15:33 07/03/19 15:33 07/03/19 15:33 07/03/19 15:33 07/03/19 15:33 - General General appearance: Alert In distress: None - HEENT Head: Normocephalic, Atraumatic Eyes: Normal Nasal: Normal Mouth/Lips: Normal Neck: Normal, Supple. No: Lymphadenopathy - Respiratory Respiratory status: No respiratory distress Chest status: Nontender Breath sounds: Normal Chest palpation: Normal - Cardiovascular Rhythm: Regular Heart sounds: S1 appreciated, S2 appreciated Murmur: No - Abdominal Inspection: Morbidly Obese Distension: No distension Bowel sounds: Normal Tenderness: Nontender Organomegaly: No organomegaly - Back Back: Normal, Nontender - Extremities General upper extremity: Normal inspection, Normal strength General lower extremity: Edema - bilat LE, Normal color, Normal ROM, Normal strength - Neurological Neuro grossly intact: Yes Cognition: Normal Genoveva Coma Scale Eye Opening: Spontaneous Genoveva Coma Scale Verbal: Oriented Eccles Coma Scale Motor: Obeys Commands Genoveva Coma Scale Total: 15 - Psychological Associated symptoms: Normal affect, Normal mood - Skin Skin Temperature: Warm Skin Moisture: Dry Skin Color: Normal Course - Re-evaluation Re-evalutation: 07/03/19 17:[address] Andersen who recommends consultation with hospitalist for admission for congestive heart failure. Recommends given a dose of IV Lasix at this time. 07/03/19 17:[address] Zendejas who agrees to accept patient for admission at this time - Vital Signs Vital signs: Temp Pulse Resp BP Pulse Ox 98.3 F 70 21 H 120/66 97 07/03/19 15:33 07/03/19 15:33 07/03/19 18:01 07/03/19 18:01 07/03/19 18:01 - Laboratory Result Diagrams: 07/03/19 15:48 07/03/19 15:48 Laboratory results interpreted by me: 07/03/19 07/03/19 07/03/19 15:48 15:48 15:48 RBC 3.39 L Hgb 9.7 L Hct 28.9 L RDW 18.6 H ESR NT-Pro-B Natriuret Pep 1030 H Total Protein 6.0 L Urine Blood Urine Urobilinogen Ur Leukocyte Esterase 07/03/19 07/03/19 15:48 15:48 RBC Hgb Hct RDW ESR 24 H NT-Pro-B Natriuret Pep Total Protein Urine Blood MODERATE H Urine Urobilinogen 2.0 H Ur Leukocyte Esterase LARGE H 07/03/19 17:17 Labs- Entire Visit 07/03/19 07/03/19 07/03/19 15:48 15:48 15:48 WBC 6.4 RBC 3.39 L Hgb 9.7 L Hct 28.9 L MCV 85 MCH 28.6 MCHC 33.6 RDW 18.6 H Plt Count 240 Lymph % (Auto) 29.8 [place] % (Auto) 7.8 Eos % (Auto) 4.0 Baso % (Auto) 0.8 Absolute Neuts (auto) 3.7 Absolute Lymphs (auto) 1.9 Absolute Monos (auto) 0.5 Absolute Eos (auto) 0.3 Absolute Basos (auto) 0.1 Seg Neutrophils % 57.6 Sodium 140.3 Potassium 4.0 Chloride 107 Carbon Dioxide 25 Anion Gap 8 BUN 17 Creatinine 0.78 Est GFR ( Amer) > 60 Est GFR (MDRD) Non-Af > 60 Glucose 87 Calcium 8.9 Total Bilirubin 0.4 Direct Bilirubin 0.1 Neonat Total Bilirubin Not Reportable Neonat Direct Bilirubin Not Reportable Neonat Indirect Bili Not Reportable AST 20 ALT 17 Alkaline Phosphatase 110 Troponin I < 0.012 NT-Pro-B Natriuret Pep 1030 H Total Protein 6.0 L Albumin 3.5 Urine Color Urine Appearance Urine pH Ur Specific [place] Urine Protein Urine Glucose (UA) Urine Ketones Urine Blood Urine Nitrite Urine Bilirubin Urine Urobilinogen Ur Leukocyte Esterase Urine WBC (Auto) Urine RBC (Auto) Squamous Epi Cells Auto Urine Mucus (Auto) Urine Ascorbic Acid 07/03/19 15:48 WBC RBC Hgb Hct MCV MCH MCHC RDW Plt Count Lymph % (Auto) [place] % (Auto) Eos % (Auto) Baso % (Auto) Absolute Neuts (auto) Absolute Lymphs (auto) Absolute Monos (auto) Absolute Eos (auto) Absolute Basos (auto) Seg Neutrophils % Sodium Potassium Chloride Carbon Dioxide Anion Gap BUN Creatinine Est GFR ( Amer) Est GFR (MDRD) Non-Af Glucose Calcium Total Bilirubin Direct Bilirubin Neonat Total Bilirubin Neonat Direct Bilirubin Neonat Indirect Bili AST ALT Alkaline Phosphatase Troponin I NT-Pro-B Natriuret Pep Total Protein Albumin Urine Color YELLOW Urine Appearance CLEAR Urine pH 6.0 Ur Specific [place] 1.028 Urine Protein NEGATIVE Urine Glucose (UA) NEGATIVE Urine Ketones NEGATIVE Urine Blood MODERATE H Urine Nitrite NEGATIVE Urine Bilirubin NEGATIVE Urine Urobilinogen 2.0 H Ur Leukocyte Esterase LARGE H Urine WBC (Auto) 14 Urine RBC (Auto) 16 Squamous Epi Cells Auto 1 Urine Mucus (Auto) MANY Urine Ascorbic Acid NEGATIVE - Diagnostic Test Radiology reviewed: Image reviewed, Reports reviewed - EKG Interpretation by Ut EKG shows normal: Sinus rhythm Rate: Normal Rhythm: NSR Additional EKG results interpreted by or: 07/03/19 17:[address] elevation, QTc 461 Discharge - Discharge Clinical Impression: Shortness of breath Congestive heart failure Qualifiers: Heart failure type: unspecified Heart failure chronicity: acute Qualified Code(s): I50.9 - Heart failure, unspecified UTI (urinary tract infection) Qualifiers: Urinary tract infection type: site unspecified Hematuria presence: with hematuria Qualified Code(s): N39.0 - Urinary tract infection, site not specified Condition: Fair Disposition: ADMITTED INPATIENT Admitting Provider: Cristiana (Hospitalist) Unit Admitted: Telemetry
[2019-07-03] MEDS ORDERED: FUROSEMIDE INJ/PF 20 MG/2 ML SDV IV ONE (17:18)
[2019-07-03] MEDS ORDERED: CEFTRIAXONE 1 GM/D5W RTU 1 GM/50 ML RTUPB IV ONE (17:25)
[2019-07-03] MEDS ORDERED: MAGNESIUM HYDROXIDE SUSP 30 ML UDCUP PO PRN (17:56)
[2019-07-03] MEDS ORDERED: TEMAZEPAM 15 MG CAPSULE PO PRN (17:56)
[2019-07-03] MEDS ORDERED: ONDANSETRON HCL INJ/PF 4 MG/2 ML SDV IV PRN (17:56)
[2019-07-03] MEDS ORDERED: ACETAMINOPHEN 325 MG TABLET PO PRN (17:56)
[2019-07-03] MEDS ORDERED: PROMETHAZINE HCL INJ 25 MG/1 ML VIAL IV PRN (17:56)
--- NOTE | 2019-07-03 18:25 | PDOC H&P ---
History of Present Illness Admission Date/PCP: BRE HIGH MD History of Present Illness: WESLEY CALDERA is a 29 year old female A3(miscarriages) past medical history of asthma who recently delivered a baby through on 06/23/2019 resenting to ED complaining of worsening shortness of breath. She is reporting orthopnea, PND, and lower extremity swelling for the last 4 days, presented to [facility] clinic, was told that it could be part of her recent , was given Lasix and sent home. Patient has been taking her Lasix however her shortness of breath has been getting worse. She is also reporting intermittent chest heaviness, sharp chest pain, lasting seconds, no alleviating or aggravating factors identified, denies any fever however stating that she gets goosebumps alot. During the she was noted to have tachycardia and a cardiology visit wa s arranged by POWERHOUSE OPERATOR however she has not been able to see a staffing director yet. On this visit she is reporting that she has noted that her overall heart rate drops to 40s, noted on her smart watch. Also reporting nausea and loose stools for the last several days but denies any abdominal pain, recent upper respiratory infection, recent travel, herbal medication ingestion, joint pain, joint swelling, vision changes, vaginal discharge. She is also denying personal or family history of CAD. she had dysuria however resolved at the moment. In ED she was noted to have a hemoglobin of 9.7 which is her baseline, proBNP of 1030 positive UA. Negative troponins and EKG. Was given IV Lasix, started on IV antibiotics and hospital was consulted for admission. Past Medical History Cardiac Medical History: Denies: Coronary Artery Disease, Myocardial Infarction, Hypertension Pulmonary Medical History: Reports: Asthma Denies: Bronchitis, Chronic Obstructive Pulmonary Disease (COPD), Pneumonia Neurological Medical History: Denies: Seizures Musculoskeltal Medical History: Reports: Arthritis - BACK Hematology: Reports: Anemia Infectious Medical History: Reports: Methicillin-Resistant Staph Aureus Past Surgical History Past Surgical History: Denies: Hysterectomy Social History Smoking Status: Never Smoker Frequency of Alcohol Use: None Hx Recreational Drug Use: No Drugs: None Hx Prescription Drug Abuse: No Family History Family History: Reviewed & Not Pertinent, DM, Hypertension, Thyroid Disfunction Parental Family History Reviewed: Yes Children Family History Reviewed: Yes Sibling(s) Family History Reviewed.: Yes Medication/Allergy Home Medications: Albuterol Sulfate [Proair HFA] 2 puff IH Q4 PRN 05/13/18 Vit No.130/Iron/Folic [ Tablet] 1 each PO DAILY 06/23/19 Ferrous Sulfate [Feosol 325 mg Tablet] 325 mg PO DAILY #30 tablet 06/25/19 Ibuprofen [Motrin 800 mg Tablet] 800 mg PO Q6 #60 tablet 06/25/19 Oxycodone HCl/Acetaminophen [Percocet 5-325 mg Tablet] 1 tab PO Q4HP PRN #28 tablet 06/25/19 Allergies/Adverse Reactions: latex [Latex] Allergy (Severe, Verified 07/03/19 15:25) SKIN SWELLING Shellfish * [Shellfish] Allergy (Severe, Verified 07/03/19 15:25) Anaphylaxis Review of Systems Review of Systems: as per hpi Physical Exam Vital Signs: Temp Pulse Resp BP Pulse Ox 98.3 F 70 18 146/80 H 98 07/03/19 15:33 07/03/19 15:33 07/03/19 15:33 07/03/19 15:33 07/03/19 15:37 Intake & Output 07/02/19 07/03/19 07/04/19 06:59 06:59 06:59 Weight 88.5 kg General appearance: PRESENT: mild distress, obese Neck exam: PRESENT: JVD Respiratory exam: PRESENT: crackles, prolonged expiratory phas, symmetrical, wheezes Cardiovascular exam: PRESENT: RRR. ABSENT: diastolic murmur, rubs, systolic murmur GI/Abdominal exam: PRESENT: normal bowel sounds, soft. ABSENT: distended, guarding, mass, organolmegaly, rebound, tenderness Extremities exam: PRESENT: +2 edema Neurological exam: PRESENT: alert, awake, oriented to person, oriented to place, oriented to time, oriented to situation, CN II-XII grossly intact. ABSENT: motor sensory deficit Skin exam: PRESENT: other - Surgical incision and lower abdomen is clean, no sign of infection erythema or discharge. Results Laboratory Results: 07/03/19 15:48 07/03/19 15:48 07/03/19 07/03/19 07/03/19 15:48 15:48 15:48 WBC 6.4 RBC 3.39 L Hgb 9.7 L Hct 28.9 L MCV 85 MCH 28.6 MCHC 33.6 RDW 18.6 H Plt Count 240 Seg Neutrophils % 57.6 Sodium 140.3 Potassium 4.0 Chloride 107 Carbon Dioxide 25 Anion Gap 8 BUN 17 Creatinine 0.78 Est GFR ( Amer) > 60 Glucose 87 Calcium 8.9 Total Bilirubin 0.4 AST 20 Alkaline Phosphatase 110 C-Reactive Protein Total Protein 6.0 L Albumin 3.5 Urine Color YELLOW Urine Appearance CLEAR Urine pH 6.0 Ur Specific [place] 1.028 Urine Protein NEGATIVE Urine Glucose (UA) NEGATIVE Urine Ketones NEGATIVE Urine Blood MODERATE H Urine Nitrite NEGATIVE Ur Leukocyte Esterase LARGE H Urine WBC (Auto) 14 Urine RBC (Auto) 16 07/03/19 15:48 WBC RBC Hgb Hct MCV MCH MCHC RDW Plt Count Seg Neutrophils % Sodium Potassium Chloride Carbon Dioxide Anion Gap BUN Creatinine Est GFR ( Amer) Glucose Calcium Total Bilirubin AST Alkaline Phosphatase C-Reactive Protein 9.4 Total Protein Albumin Urine Color Urine Appearance Urine pH Ur Specific [place] Urine Protein Urine Glucose (UA) Urine Ketones Urine Blood Urine Nitrite Ur Leukocyte Esterase Urine WBC (Auto) Urine RBC (Auto) 07/03/19 15:48 Troponin I < 0.012 NT-Pro-B Natriuret Pep 1030 H Impressions: Chest X-Ray 07/03/19 15:37 IMPRESSION: REACTIVE AIRWAY DISEASE VERSUS VIRAL SYNDROME. NO CONSOLIDATION. Small bilateral effusions. Assessment and Plan - Diagnosis (1) Acute CHF (congestive heart failure) Qualifiers: Heart failure type: unspecified Qualified Code(s): I50.9 - Heart failure, unspecified Is this a current diagnosis for this admission?: Yes Plan: Recent history of hospitalization. day 10. 06/23/2019. Denies any personal family history of CAD. EKG sinus rhythm, troponin negative. proBNP 1030. Not sure if this is peripartum myocarditis VS inflammatory myopathy. day 10. 06/23/2019. Admit to telemetry, ESR, CRP 2D echo, CTA, cardiac diet, fluid restriction, IV Lasix. TSH WNL recent admission. Will obtain a new one. Consult cardiology and POWERHOUSE OPERATOR. (2) UTI (urinary tract infection) Qualifiers: Urinary tract infection type: site unspecified Hematuria presence: with hematuria Qualified Code(s): N39.0 - Urinary tract infection, site not specified; R31.9 - Hematuria, unspecified Is this a current diagnosis for this admission?: Yes Plan: Due to gram-negative rods including E. coli. Empiric IV antibiotics, urine and blood culture. (3) Obesity (BMI 30-39.9) Is this a current diagnosis for this admission?: Yes Plan: TSH WNL on recent admission. (4) Anemia Qualifiers: Anemia type: iron deficiency Is this a current diagnosis for this admission?: Yes Plan: Possibly due to recent . Daily H&H, supportive transfusions. We will start on supplemental ferrous sulfate. (5) Asthma exacerbation Qualifiers: Asthma severity: mild Is this a current diagnosis for this admission?: Yes Plan: Likely due to acute CHF. Noted to have wheezing on physical examination. Continue duo nebs, flutter valve, incentive spirometry, ICS. Hold IV steroids and work-up for pericarditis as NSAIDs are favored over steroids as first-line treatment.
[2019-07-03] MEDS: DOCUSATE SODIUM 100 MG CAPSULE PO SCH (18:50)
--- NOTE | 2019-07-03 19:06 | RADIOLOGY REPORT (SQ) ---
EXAM DESCRIPTION: CTA CHEST COMPLETED DATE/TIME: 07/03/2019 6:46 pm REASON FOR STUDY: SOB, Acute CHF COMPARISON: None. TECHNIQUE: CT scan of the chest performed using helical scanning technique with dynamic intravenous contrast injection. Images reviewed with lung, soft tissue and bone windows. Reconstructed coronal and sagittal MPR images reviewed. Additional 3 dimensional post-processing performed to develop Maximal Intensity Projection images (ID P). All images stored on PACS. All CT scanners at this facility use dose modulation, iterative reconstruction, and/or weight based d osing when appropriate to reduce radiation dose to as low as reasonably achievable (ALARA). [facility]: Dose Right [facility]: CareDose [facility]: Dose Right [facility]: Teradose 4D [facility]: [employer] CONTRAST TYPE AND DOSE: contrast/concentration: Isovue 350.00 mg/ml; Total Contrast Delivered: 64.0 ml; Total Saline Delivered: 80.0 ml Contrast bolus adequate for pulmonary arteries and aorta. RENAL FUNCTION: None required. The patient is less than 50 years old. RADIATION DOSE: CT Rad equipment meets quality standard of care and radiation dose reduction techniq ues were employed. CTDIvol: 14.3 - 16.5 mGy. DLP: 519 mGy-cm. . LIMITATIONS: None. FINDINGS: LUNGS AND PLEURA: No pneumothorax. Mild bronchial wall -interstitial thickening. Small s cattered areas of basilar subsegmental atelectasis. Small bilateral pleural effusions. No consolida tion. AORTA AND GREAT VESSELS: No aneurysm. Contrast bolus not optimized for the aorta. HEART: No pericardial effusion. No significant coronary artery calcifications. PULMONARY ARTERIES: No emboli visualized in the main pulmonary arteries or the segmental branches. HILAR AND MEDIASTINAL STRUCTURES: No identified masses or abnormal nodes. HARDWARE: None in the chest. UPPER ABDOMEN: No significant findings. Limited exam. THYROID AND OTHER SOFT TISSUES: No masses. No adenopathy. BONES: No acute or significant finding. 3D MIPS: Confirm above findings. OTHER: No other significant finding. IMPRESSION: No emboli visualized in the main pulmonary arteries or the segmental branches. Mild bron chial wall -interstitial thickening. Small scattered areas of basilar subsegmental atelectasis. Sma ll bilateral pleural effusions. No consolidation. COMMENT: Quality ID # [id number]: Final reports with documentation of one or more dose reduction techniques (e.g., Automated exposure control, adjustment of the mA and/or kV according to patient size, use of iterative reconstruction technique) TECHNICAL DOCUMENTATION: JOB ID: [id number] [place]-72 2010 [employer] [employer] [place]- All Rights Reserved Reading location - IP/workstation name: [email or web address]
[2019-07-03 19:17] LABS: URINE AMPHETAMINES SCREEN NEGATIVE; URINE BARBITURATES SCREEN NEGATIVE; URINE BENZODIAZEPINES SCREEN NEGATIVE; URINE COCAINE SCREEN NEGATIVE; URINE MARIJUANA (THC) SCREEN NEGATIVE; URINE METHADONE SCREEN NEGATIVE; URINE PHENCYCLIDINE SCREEN NEGATIVE
--- NOTE | 2019-07-03 19:27 | EKG REPORT ---
SEVERITY:- NORMAL ECG - SINUS RHYTHM : Confirmed by: Adela Hagen MD 03-Jul-2019 19:26:11
[2019-07-03] MEDS: IPRATROPIUM/ALBUTEROL 0.5-2.5 MG/3 ML AMPUL NEB SCH (20:02)
[2019-07-03] MEDS: HEPARIN SOD (PORCINE) 5,000 UNIT/ML 1 ML VIAL SUBCUT SCH (22:42)
[2019-07-03] MEDS: FUROSEMIDE INJ/PF 40 MG/4 ML SDV IV SCH (22:43)
[2019-07-03] MEDS ORDERED: IPRATROPIUM/ALBUTEROL 0.5-2.5 MG/3 ML AMPUL NEB PRN (23:12)
[2019-07-04 04:50] LABS: ABSOLUTE BASOPHILS # (AUTO) 0.1 10^3/uL (0.0-0.2); ABSOLUTE EOSINOPHILS # (AUTO) 0.2 10^3/uL (0.0-0.6); ABSOLUTE MONOCYTES (AUTO) 0.4 10^3/uL (0.1-1.4); ABSOLUTE NEUT (AUTO) 3.8 10^3/uL (1.7-8.2); BASOPHILS % (AUTO) 0.8 % (0-2); EOSINOPHILS % (AUTO) 3.1 % (0-6); HEMATOCRIT 28.8 % (36.0-47.0); HEMOGLOBIN 9.6 g/dL (12.0-15.5); LYMPHOCYTES % (AUTO) 30.6 % (13-45); MEAN CORPUSCULAR HGB CONC 33.2 g/dL (32.0-36.0); MEAN CORPUSCULAR VOLUME 84 fl (80-97); MONOCYTES % (AUTO) 6.8 % (3-13); PLATELET COUNT 228 10^3/uL (150-450); RED BLOOD COUNT 3.42 10^6/uL (3.72-5.28); RED CELL DISTRIBUTION WIDTH 18.5 % (11.5-14.0); SEGMENTED NEUTROPHILS % (AUTO) 58.7 % (42-78); TOTAL CELLS COUNTED % (AUTO) 100 %; WHITE BLOOD COUNT 6.5 10^3/uL (4.0-10.5)
[2019-07-04 05:11] LABS: ANION GAP 12 (5-19); BLOOD UREA NITROGEN 18 mg/dL (7-20); CARBON DIOXIDE 25 mmol/L (22-30); CHLORIDE 103 mmol/L (98-107); GLUCOSE 72 mg/dL (75-110); POTASSIUM 3.8 mmol/L (3.6-5.0)
[2019-07-04] MEDS: HEPARIN SOD (PORCINE) 5,000 UNIT/ML 1 ML VIAL SUBCUT SCH ×3 (05:15→21:18)
[2019-07-04] MEDS: PANTOPRAZOLE SODIUM 40 MG TABLET.DR PO SCH ×2 (05:17→17:00)
[2019-07-04] MEDS: IPRATROPIUM/ALBUTEROL 0.5-2.5 MG/3 ML AMPUL NEB SCH ×3 (08:26→20:04)
[2019-07-04] MEDS: FUROSEMIDE INJ/PF 40 MG/4 ML SDV IV SCH ×2 (09:14→21:18)
[2019-07-04] MEDS: DOCUSATE SODIUM 100 MG CAPSULE PO SCH ×2 (09:15→17:00)
[2019-07-04] MEDS: CEFTRIAXONE 1 GM/D5W RTU 1 GM/50 ML RTUPB IV SCH (09:15)
--- NOTE | 2019-07-04 13:40 | PDOC PROGRESS REPORT ---
Subjective Progress Note for:: 07/04/19 Subjective:: WESLEY CALDERA is a 29 year old female A3(miscarriages) past medical history of asthma who recently delivered a baby through on 06/23/2019 resenting to ED complaining of worsening shortness of breath. She is reporting orthopnea, PND, and lower extremity swelling for the last 4 days, presented to [facility], was told that it could be part of her recent , was given Lasix and sent home. Patient has been taking her Lasix however her shortness of breath has been getting worse. She is also reporting intermittent chest heaviness, sharp chest pain, lasting seconds, no alleviating or aggravating factors identified, denies any fever however stating that she gets goosebumps alot. During the she was noted to have tachycardia and a cardiology visit was arranged by [facility] however she has not been able to see a formal waiter/waitress yet. On this visit she is reporting that she has noted that her overall heart rate drops to 40s, noted on her smart watch. Also reporting nausea and loose stools for the last several days but denies any abdominal pain, recent upper respiratory infection, recent travel, herbal medication ingestion, joint pain, joint swelling, vision changes, vaginal discharge. She is also denying personal or family history of CAD. she had dysuria however resolved at the moment. In ED she was noted to have a hemoglobin of 9.7 which is her baseline, proBNP of 1030 positive UA. Negative troponins and EKG. Was given IV Lasix, started on IV antibiotics and hospital was consulted for admission. 07/04/2019. Patient reporting moderate improvement of shortness of breath and lower extremity edema however still complaining of orthopnea and PND. Complaining of mild nonproductive cough. Denies any fever, chills, nausea, vomiting, diarrhea, constipation or any urinary symptoms. CTA negative for PE. CRP 9.5. ESR 24. States 2.0. proBNP at 1030. UDS negative. Reason For Visit: ACUTE CHF UTI Physical Exam Vital Signs: Temp Pulse Resp BP Pulse Ox 98.6 F 60 16 123/68 97 07/04/19 10:56 07/04/19 10:56 07/04/19 10:56 07/04/19 10:56 07/04/19 10:56 Intake & Output 07/03/19 07/04/19 07/05/19 06:59 06:59 06:59 Intake Total 700 100 Output Total 1300 Balance -600 100 Weight 89 kg General appearance: PRESENT: no acute distress, well-developed, well-nourished Neck exam: PRESENT: JVD Respiratory exam: PRESENT: clear to auscultation nakita, crackles. ABSENT: rales, rhonchi, wheezes Cardiovascular exam: PRESENT: RRR. ABSENT: diastolic murmur, rubs, systolic murmur Pulses: PRESENT: normal dorsalis pedis pul GI/Abdominal exam: PRESENT: normal bowel sounds, soft. ABSENT: distended, guarding, mass, organolmegaly, rebound, tenderness Neurological exam: PRESENT: alert, awake, oriented to person, oriented to place, oriented to time, oriented to situation, CN II-XII grossly intact. ABSENT: motor sensory deficit Skin exam: PRESENT: dry, intact, warm. ABSENT: cyanosis, rash Results Laboratory Results: 07/04/19 03:43 07/04/19 03:43 07/03/19 07/03/19 07/03/19 15:48 15:48 15:48 WBC 6.4 RBC 3.39 L Hgb 9.7 L Hct 28.9 L MCV 85 MCH 28.6 MCHC 33.6 RDW 18.6 H Plt Count 240 Seg Neutrophils % 57.6 Sodium 140.3 Potassium 4.0 Chloride 107 Carbon Dioxide 25 Anion Gap 8 BUN 17 Creatinine 0.78 Est GFR ( Amer) > 60 Glucose 87 Calcium 8.9 Total Bilirubin 0.4 AST 20 Alkaline Phosphatase 110 C-Reactive Protein Total Protein 6.0 L Albumin 3.5 TSH Urine Color YELLOW Urine Appearance CLEAR Urine pH 6.0 Ur Specific Jupiter 1.028 Urine Protein NEGATIVE Urine Glucose (UA) NEGATIVE Urine Ketones NEGATIVE Urine Blood MODERATE H Urine Nitrite NEGATIVE Ur Leukocyte Esterase LARGE H Urine WBC (Auto) 14 Urine RBC (Auto) 16 07/03/19 07/03/19 07/03/19 15:48 15:48 18:56 WBC RBC Hgb Hct MCV MCH MCHC RDW Plt Count Seg Neutrophils % Sodium Potassium Chloride Carbon Dioxide Anion Gap BUN Creatinine Est GFR ( Amer) Glucose Calcium Total Bilirubin AST Alkaline Phosphatase C-Reactive Protein 9.4 9.5 Total Protein Albumin TSH 2.00 Urine Color Urine Appearance Urine pH Ur Specific Jupiter Urine Protein Urine Glucose (UA) Urine Ketones Urine Blood Urine Nitrite Ur Leukocyte Esterase Urine WBC (Auto) Urine RBC (Auto) 07/04/19 07/04/19 03:43 03:43 WBC 6.5 RBC 3.42 L Hgb 9.6 L Hct 28.8 L MCV 84 MCH 28.0 MCHC 33.2 RDW 18.5 H Plt Count 228 Seg Neutrophils % 58.7 Sodium 140.1 Potassium 3.8 Chloride 103 Carbon Dioxide 25 Anion Gap 12 BUN 18 Creatinine 0.81 Est GFR ( Amer) > 60 Glucose 72 L Calcium 9.0 Total Bilirubin AST Alkaline Phosphatase C-Reactive Protein Total Protein Albumin TSH Urine Color Urine Appearance Urine pH Ur Specific Jupiter Urine Protein Urine Glucose (UA) Urine Ketones Urine Blood Urine Nitrite Ur Leukocyte Esterase Urine WBC (Auto) Urine RBC (Auto) 07/03/19 15:48 Clean Catch Midstream Urine Culture - Final Group B Beta Streptococcus 07/03/19 15:48 Troponin I < 0.012 NT-Pro-B Natriuret Pep 1030 H Impressions: Chest/Abdomen CTA 07/03/19 00:00 IMPRESSION: No emboli visualized in the main pulmonary arteries or the segmental branches. Mild bronchial wall -interstitial thickening. Small scattered areas of basilar subsegmental atelectasis. Small bilateral pleural effusions. No consolidation. Chest X-Ray 07/03/19 15:37 IMPRESSION: REACTIVE AIRWAY DISEASE VERSUS VIRAL SYNDROME. NO CONSOLIDATION. Small bilateral effusions. Assessment and Plan - Diagnosis (1) Acute CHF (congestive heart failure) Qualifiers: Heart failure type: unspecified Qualified Code(s): I50.9 - Heart failure, unspecified Is this a current diagnosis for this admission?: Yes Plan: Recent history of hospitalization. day 10. 06/23/2019. CTA negative for PE. CRP 9.5. ESR 24. proBNP 1030. UDS negative. EKG sinus rhythm, troponins negative. Denies any personal family history of CAD. Not sure if this is peripartum myocarditis VS inflammatory myopathy. Continue to telemetry, cardiac diet, fluid restriction, IV Lasix, strict in and out, daily weights. Pending 2D echo and bilateral lower extremity Doppler. Cardiology and [facility] consulted. Pending recommendations. (2) UTI (urinary tract infection) Qualifiers: Urinary tract infection type: site unspecified Hematuria presence: with hematuria Qualified Code(s): N39.0 - Urinary tract infection, site not specified; R31.9 - Hematuria, unspecified Is this a current diagnosis for this admission?: Yes Plan: Urine culture growing group B strep. Pending sensitivity. Day 2 IV antibiotics. Follow-up urine culture. Switch to p.o. once appropriate. (3) Obesity (BMI 30-39.9) Is this a current diagnosis for this admission?: Yes Plan: TSH WNL on recent admission. (4) Anemia Qualifiers: Anemia type: iron deficiency Is this a current diagnosis for this admission?: Yes Plan: Possibly due to recent . Daily H&H, supportive transfusions. We will start on supplemental ferrous sulfate. (5) Asthma exacerbation Qualifiers: Asthma severity: mild Is this a current diagnosis for this admission?: Yes Plan: Likely due to acute CHF. Noted to have wheezing on physical examination. Continue duo nebs, IV steroids, flutter valve, incentive spirometry, ICS.
[2019-07-04] MEDS: PREDNISONE 20 MG TABLET PO SCH (14:11)
--- NOTE | 2019-07-04 19:44 | XCELERA REPORT ---
[address] [address] Transthoracic Echocardiogram Report Name: WESLEY CALDERA Age: 29 yrs Gender: Female : 1990 Patient Status: Inpatient Patient Location: [address] [place] [address] Study Date: 07/04/2019 01:43 PM Height: 63 in Weight: 196 lb BSA: 1.9 m2 Procedure: A two-dimensional transthoracic echocardiogram with color flow and Doppler was performed. Study Quality: Fair. Reason For Study: acute CHF History: acute CHF. Ordering Physician: GUILHERME VILLA Performed By: Whitley Ly Interpretation Summary A two-dimensional transthoracic echocardiogram with color flow and Doppler was performed. The left ventricle is normal in size. There is normal left ventricular wall thickness. LV EF is 65% The left ventricular ejection fraction is within normal limits. Doppler measurements suggest normal left ventricular diastolic function The left ventricular wall motion is normal. There is no thrombus. There is no ventricular septal defect visualized. The right ventricle is normal in size and function. The right atrium is normal. The left atrium is borderline dilated. The interatrial septum is intact with no evidence for an atrial septal defect. There is no Doppler evidence for an interatrial shunt There is no evidence of mitral valve prolapse. There is no vegetation seen on the mitral valve. There is no mitral valve stenosis. There is a trace amount of mitral regurgitation There is no aortic valvular vegetation. There is no aortic valve stenosis There is no LVOT obstruction. No aortic regurgitation is present. There is no tricuspid stenosis. No tricuspid regurgitation. Unable to calculate RVSP due to lack of TR jet. There is no pulmonic valvular stenosis. There is no pulmonic valvular regurgitation. The aortic root is normal size. There is no pericardial effusion. MMode/2D Measurements & Calculations RVDd: 4.0 cm LVIDd: 5.3 cm FS: 38.0 % Ao root diam: 3.0 cm IVSd: 0.88 cm LVIDs: 3.3 cm EDV(Teich): LVPWd: 0.91 cm 136.6 ml Ao root area: ESV(Teich): 6.9 cm2 44.1 ml EF(Teich): 67.7 % EDV(MOD-sp4): SV(MOD-sp4): 147.6 ml 100.8 ml ESV(MOD-sp4): 46.8 ml EF(MOD-sp4): 68.3 % Doppler Measurements & Calculations MV E max gary: MV dec slope: Ao V2 max: LV V1 max P.4 cm/sec 145.3 cm/sec 6.7 mmHg MV A max gary: 607.1 cm/sec2 Ao max PG: LV V1 max: 77.2 cm/sec MV dec time: 0.18 sec8.4 mmHg 129.1 cm/sec MV E/A: 1.4 PA V2 max: 103.1 cm/sec PA max P.2 mmHg Left Ventricle The left ventricle is normal in size. There is normal left ventricular wall thickness. LV EF is 65%. The left ventricular ejection fraction is within normal limits. Doppler measurements suggest normal left ventricular diastolic function. The left ventricular wall motion is normal. There is no thrombus. There is no ventricular septal defect visualized. Right Ventricle The right ventricle is normal in size and function. Atria The right atrium is normal. The left atrium is borderline dilated. The interatrial septum is intact with no evidence for an atrial septal defect. There is no Doppler evidence for an interatrial shunt. Mitral Valve There is no evidence of mitral valve prolapse. There is no vegetation seen on the mitral valve. There is no mitral valve stenosis. There is a trace amount of mitral regurgitation. Aortic Valve There is no aortic valvular vegetation. There is no aortic valve stenosis. There is no LVOT obstruction. No aortic regurgitation is present. Tricuspid Valve There is no tricuspid stenosis. No tricuspid regurgitation. Unable to calculate RVSP due to lack of TR jet. Pulmonic Valve There is no pulmonic valvular stenosis. There is no pulmonic valvular regurgitation. Great Vessels The aortic root is normal size. Effusions There is no pericardial effusion. : GUILHERME VILLA Lakshmi
--- NOTE | 2019-07-04 22:03 | RADIOLOGY REPORT (SQ) ---
US LOWER EXTREMITY VEINS EXAM DATE: 07/04/2019 12:00 AM CDT HISTORY: Leg pain and swelling. COMPARISON: None. TECHNIQUE: Laboy-scale, color Doppler and spectral Doppler images of the bilateral lower extremity veins were obtained. FINDINGS: RIGHT: The right common femoral, superficial femoral and popliteal veins are patent and compressible. Normal augmentation and color Doppler blood flow in the aforementioned veins. The visualized calf veins are also patent. LEFT: The left common femoral, superficial femoral and popliteal veins are patent and compressible. Normal augmentation and color Doppler blood flow in the aforementioned veins. The visualized calf veins are also patent. IMPRESSION: No evidence of deep venous thrombosis in the bilateral lower extremities.
--- NOTE | 2019-07-04 23:36 | Progress Note ---
Provider Note Provider Note: CARDIOLOGY CONSULTATION by Dr. Adela Hagen on 07/04/2019. Patient seen at 3:30 PM. Earlier in the morning the patient was also seen briefly. Formal consultation done at 3:30 PM. 60 minutes spent on this patient with more than 50% of time spent in direct patient care. REASON FOR CONSULTATION: Patient with symptoms of shortness of breath PND orthopnea leg edema and diagnosis having CHF. Hence cardiology consultation. CONSULT REQUESTING PHYSICIAN: [facility]. HISTORY PRESENT ILLNESS: Patient is a 29-year-old female who on 06/23/2010 had a and was discharged home on ibuprofen and oxycodone. The patient states since then she has been having progressively increasing leg swelling PND orthopnea and shortness of breath which is increasing. She states that initially the Lasix was not working but now her leg edema is improved with the Lasix. She also has a history of asthma and states that she recently prior to this admission has been having some mild wheezing with dry cough. The patient states his shortness of breath is slightly improved. The patient states that initially she was prescribed ibuprofen every 6 hours but she states that she is not taking it regularly in that dosage, and probably has taken 1 pill a day. She has a history of her tachycardia during her , but could not see a saw superintendent. But the states that she has been having bradycardia with a heart rate in the 40s when she is talking to him but without any symptoms. There is no syncope or near syncope. There is no chest pain or discomfort. Suggestive of angina. She does have musculoskeletal chest pain with occasional sharp pains. She denies any history of hypertension or diabetes mellitus. There is no history of congenital heart disease. There is no history of thyroid disease. There is no history of COPD. The patient does have asthma. Past Medical History Cardiac Medical History: Denies: Coronary Artery Disease, Myocardial Infarction, Hypertension Pulmonary Medical History: Reports: Asthma Denies: Bronchitis, Chronic Obstructive Pulmonary Disease (COPD), Pneumonia Neurological Medical History: Denies: Seizures Musculoskeltal Medical History: Reports: Arthritis - BACK Hematology: Reports: Anemia Infectious Medical History: Reports: Methicillin-Resistant Staph Aureus Past Surgical History Past Surgical History: Denies: Hysterectomy Social History Smoking Status: Never Smoker Frequency of Alcohol Use: None Hx Recreational Drug Use: No Drugs: None Hx Prescription Drug Abuse: No Family History Family History: Reviewed & Not Pertinent, DM, Hypertension, Thyroid Disfunction Parental Family History Reviewed: Yes Children Family History Reviewed: Yes Sibling(s) Family History Reviewed.: Yes Medication/Allergy Home Medications: Albuterol Sulfate [Proair HFA] 2 puff IH Q4 PRN 05/13/18 Vit No.130/Iron/Folic [ Tablet] 1 each PO DAILY 06/23/19 Ferrous Sulfate [Feosol 325 mg Tablet] 325 mg PO DAILY #30 tablet 06/25/19 Ibuprofen [Motrin 800 mg Tablet] 800 mg PO Q6 #60 tablet 06/25/19 Oxycodone HCl/Acetaminophen [Percocet 5-325 mg Tablet] 1 tab PO Q4HP PRN #28 tablet 06/25/19 Allergies/Adverse Reactions: latex [Latex] Allergy (Severe, Verified 07/03/19 15:25) SKIN SWELLING Shellfish * [Shellfish] Allergy (Severe, Verified 07/03/19 15:25) Anaphylaxis Resuscitation STATUS: The patient is a full code. Her is her surrogate healthcare decision maker. Review SYSTEMS: CONSTITUTIONAL: Patient denies any fever chills or rigors. She complains of generalized fatigue and generalized weakness. HEAD: No history of headaches or head injury. EYES: No history of amblyopia diplopia no history of amaurosis fugax. EARS: No history of vertigo. No history of hearing loss. No history of tinnitus. NOSE: No history of hayfever. No history of nosebleeds. MOUTH: No history of ulcers in the mouth. No bleeding complications. No altered taste sensation. THROAT: No history of odynophagia or dysphagia. No history of recurrent sore throats. SKIN: No history of pruritus. No history of allergic discoloration of the skin. No history of skin cancer or eczema. NECK : No history of neck pain. No history of swelling in the neck. LUNGS: History of asthma patient with a mild attack this admission which started just prior to the admission. Now the patient states she is not wheezing anymore. She has cough which is nonproductive of any sputum. There is no hemoptysis. There is no pleuritic chest pain. There is no symptoms suggest sleep apnea. HEART: Denies hypertension or diarrhea hour coronary heart disease. History of symptoms of shortness of breath with exertion and PND and orthopnea and leg edema. There is suggestive of heart failure, but could be due to the use of ibuprofen. No prior history of congestive heart failure. No history of syncope. She has a history of palpitation during menses. GI: No history of GI bleed. No history of fatty food intolerance. No abdominal pain. ENDOCRINE: No history of diabetes mellitus or thyroid disease. No history of polydipsia polyuria. No history of heat or cold intolerance. MUSCULOSKELETAL: No history of arthritis or collagen vascular disease. RENAL: No history of chronic kidney disease. No symptoms of UTI. Although the patient does have a UTI by urine examination. The patient is covered with antibiotics for that. POLITICAL WORKER: No history of headaches migraines or seizures. No history of stroke. PSYCHIATRIC:. No history of anxiety or depression. HEMATOLOGICAL: Note that the patient's hem oglobin is stable at 9.7 there is no history of severe or symptomatic anemia. No history of hematological malignancy. VASCULAR: No history of calf or buttock claudication. No history of DVT. PHYSICAL EXAMINATION: The patient is mild to moderately obese. In no acute distress at present. Selected Entries 07/04/19 15:19 Temperature 98.5 F Temperature Oral Source Pulse Rate 75 Respiratory 16 Rate Blood Pressure 118/72 Blood Pressure 87 Mean BP Location Left Arm BP Position Sitting O2 Sat by Pulse 97 Oximetry Oxygen Delivery Room Air Method HEAD: Is atraumatic normocephalic. EYES: Tubes are equal round regular reactive light accommodation. Extraocular movements are normal. There is no conjunctival pallor. There is no scleral icterus. ENT is negative. NECK: Is supple there is no JVD. There is no lymphadenopathy. There is no accessory muscle respiration use. There is no goiter. LUNGS: There are few scattered rhonchi. Otherwise lungs are clear without any wheezing or rales. There is no chest wall tenderness on palpation. HEART: S1-S2 is heard. There is no S3 gallop. There is no S4 gallop. There is systolic murmur left sternal border and the apex there is no rub. ABDOMEN: Is mildly obese. Nontender. There is no hepatospleno megaly bowel sounds are well heard. The patient's scar of is clean and healing well. EXTREMITIES: Femorals are deep. Femorals are felt. There is no femoral bruits. Leg pulses are well felt. There is trace pedal edema. There is no DVT or cellulitis. There is no cyanosis or clubbing. POLITICAL WORKER: The patient is conscious awake alert oriented x3 with no focal deficits. PSYCHIATRIC: Patient judgment insight are intact her affect is normal. His echocardiogram is essentially within normal limits. Her systolic and diastolic function are normal. There is no significant valvular pathology there is no pericardial effusion. This has been discussed with the patient and patient's EKG: Is within normal limits. The patient's lower extremity venous Doppler studies are negative for any DVT or SVT. Current Medications Generic Name Dose Route Start Last Admin Trade Name Freq PRN Reason Stop Dose Admin Acetaminophen 325 mg 07/03/19 17:56 07/04/19 21:32 Tylenol 325 Mg Tablet PO 08/02/19 17:55 325 mg Q4HP PRN Administration FEVER >101 Albuterol/Ipratropium 3 ml 07/03/19 20:00 07/04/19 20:04 Duoneb 3 Ml Ampul NEB 08/02/19 19:59 3 ml [id number] KEVAN Administration Albuterol/Ipratropium 3 ml 07/03/19 23:12 07/03/19 23:20 Duoneb 3 Ml Ampul NEB 08/02/19 23:11 3 ml [id number] PRN Administration SHORTNESS OF BREATH Docusate Sodium 100 mg 07/03/19 18:00 07/04/19 17:00 Colace 100 Mg Capsule PO 08/02/19 17:59 100 mg BID KEVAN Administration Furosemide 40 mg 07/03/19 22:00 07/04/19 21:18 Lasix Inj/Pf 40 Mg/4 Ml Sdv IV 08/02/19 21:59 40 mg Q12 KEVAN Administration Heparin Sodium (Porcine) 5,000 unit 07/03/19 22:00 07/04/19 21:18 Heparin Inj 5,000 Units/Ml 1 Ml Vial SUBCUT 08/02/19 21:59 Not Given Q8 KEVAN Ceftriaxone Sodium/Dextrose 1 gm in 50 mls @ 100 mls/hr 07/04/19 10:00 07/04/19 09:45 Rocephin Rtu 1 Gm/D5w 50 Ml Premix IV 07/11/19 09:59 Infused DAILY KEVAN Infusion Magnesium Hydroxide 30 ml 07/03/19 17:56 Milk Of Magnesia 30 Ml Udcup PO 08/02/19 17:55 HSP PRN FOR CONSTIPATION Ondansetron HCl 4 mg 07/03/19 17:56 Zofran Inj/Pf 4 Mg/2 Ml Sdv IV 08/02/19 17:55 Q4HP PRN FOR NAUSEA/VOMITING Pantoprazole Sodium 40 mg 07/04/19 06:00 07/04/19 17:[address] Tablet PO 08/03/19 05:59 40 mg BID@0600,1700 KEVAN Administration Prednisone 40 mg 07/04/19 10:00 07/04/19 14:11 Deltasone 20 Mg Tablet PO 08/03/19 09:59 40 mg DAILY KEVAN Administration Promethazine HCl 6.25 mg 07/03/19 17:56 Phenergan Inj 25 Mg/1 Ml Vial IV 08/02/19 17:55 Q4HP PRN FOR NAUSEA/VOMITING Temazepam 15 mg 07/03/19 17:56 Restoril 15 Mg Capsule PO 07/10/19 17:55 HSP PRN SLEEP OR INSOMNIA Discontinued Medications Generic Name Dose Route Start Last Admin Trade Name Freq PRN Reason Stop Dose Admin Furosemide 20 mg 07/03/19 17:18 07/03/19 17:44 Lasix Inj/Pf 20 Mg/2 Ml Sdv IV 07/03/19 17:19 20 mg NOW ONE Administration Ceftriaxone Sodium/Dextrose 1 gm in 50 mls @ 100 mls/hr 07/03/19 17:25 07/04/19 09:36 Rocephin Rtu 1 Gm/D5w 50 Ml Premix IV 07/03/19 17:54 Infused NOW ONE Infusion Labs- Entire Visit 07/03/19 07/03/19 07/03/19 15:48 15:48 15:48 WBC 6.4 RBC 3.39 L Hgb 9.7 L Hct 28.9 L MCV 85 MCH 28.6 MCHC 33.6 RDW 18.6 H Plt Count 240 Lymph % (Auto) 29.8 [place] % (Auto) 7.8 Eos % (Auto) 4.0 Baso % (Auto) 0.8 Absolute Neuts (auto) 3.7 Absolute Lymphs (auto) 1.9 Absolute Monos (auto) 0.5 Absolute Eos (auto) 0.3 Absolute Basos (auto) 0.1 Seg Neutrophils % 57.6 ESR Sodium 140.3 Potassium 4.0 Chloride 107 Carbon Dioxide 25 Anion Gap 8 BUN 17 Creatinine 0.78 Est GFR ( Amer) > 60 Est GFR (MDRD) Non-Af > 60 Glucose 87 Calcium 8.9 Total Bilirubin 0.4 Direct Bilirubin 0.1 Neonat Total Bilirubin Not Reportable Neonat Direct Bilirubin Not Reportable Neonat Indirect Bili Not Reportable AST 20 ALT 17 Alkaline Phosphatase 110 Troponin I < 0.012 C-Reactive Protein NT-Pro-B Natriuret Pep 1030 H Total Protein 6.0 L Albumin 3.5 TSH Urine Color Urine Appearance Urine pH Ur Specific [place] Urine Protein Urine Glucose (UA) Urine Ketones Urine Blood Urine Nitrite Urine Bilirubin Urine Urobilinogen Ur Leukocyte Esterase Urine WBC (Auto) Urine RBC (Auto) Squamous Epi Cells Auto Urine Mucus (Auto) Urine Ascorbic Acid Urine Opiates Screen Urine Methadone Screen Ur Barbiturates Screen Ur Phencyclidine Scrn Ur Amphetamines Screen U Benzodiazepines Scrn Urine Cocaine Screen U Marijuana (THC) Screen 07/03/19 07/03/19 07/03/19 15:48 15:48 15:48 WBC RBC Hgb Hct MCV MCH MCHC RDW Plt Count Lymph % (Auto) [place] % (Auto) Eos % (Auto) Baso % (Auto) Absolute Neuts (auto) Absolute Lymphs (auto) Absolute Monos (auto) Absolute Eos (auto) Absolute Basos (auto) Seg Neutrophils % ESR 24 H Sodium Potassium Chloride Carbon Dioxide Anion Gap BUN Creatinine Est GFR ( Amer) Est GFR (MDRD) Non-Af Glucose Calcium Total Bilirubin Direct Bilirubin Neonat Total Bilirubin Neonat Direct Bilirubin Neonat Indirect Bili AST ALT Alkaline Phosphatase Troponin I C-Reactive Protein 9.4 NT-Pro-B Natriuret Pep Total Protein Albumin TSH Urine Color YELLOW Urine Appearance CLEAR Urine pH 6.0 Ur Specific [place] 1.028 Urine Protein NEGATIVE Urine Glucose (UA) NEGATIVE Urine Ketones NEGATIVE Urine Blood MODERATE H Urine Nitrite NEGATIVE Urine Bilirubin NEGATIVE Urine Urobilinogen 2.0 H Ur Leukocyte Esterase LARGE H Urine WBC (Auto) 14 Urine RBC (Auto) 16 Squamous Epi Cells Auto 1 Urine Mucus (Auto) MANY Urine Ascorbic Acid NEGATIVE Urine Opiates Screen Urine Methadone Screen Ur Barbiturates Screen Ur Phencyclidine Scrn Ur Amphetamines Screen U Benzodiazepines Scrn Urine Cocaine Screen U Marijuana (THC) Screen 07/03/19 07/03/1919 15:48 15:48 18:56 WBC RBC Hgb Hct MCV MCH MCHC RDW Plt Count Lymph % (Auto) [place] % (Auto) Eos % (Auto) Baso % (Auto) Absolute Neuts (auto) Absolute Lymphs (auto) Absolute Monos (auto) Absolute Eos (auto) Absolute Basos (auto) Seg Neutrophils % ESR 24 H Sodium Potassium Chloride Carbon Dioxide Anion Gap BUN Creatinine Est GFR ( Amer) Est GFR (MDRD) Non-Af Glucose Calcium Total Bilirubin Direct Bilirubin Neonat Total Bilirubin Neonat Direct Bilirubin Neonat Indirect Bili AST ALT Alkaline Phosphatase Troponin I C-Reactive Protein NT-Pro-B Natriuret Pep Total Protein Albumin TSH 2.00 Urine Color Urine Appearance Urine pH Ur Specific [place] Urine Protein Urine Glucose (UA) Urine Ketones Urine Blood Urine Nitrite Urine Bilirubin Urine Urobilinogen Ur Leukocyte Esterase Urine WBC (Auto) Urine RBC (Auto) Squamous Epi Cells Auto Urine Mucus (Auto) Urine Ascorbic Acid Urine Opiates Screen NEGATIVE Urine Methadone Screen NEGATIVE Ur Barbiturates Screen NEGATIVE Ur Phencyclidine Scrn NEGATIVE Ur Amphetamines Screen NEGATIVE U Benzodiazepines Scrn NEGATIVE Urine Cocaine Screen NEGATIVE U Marijuana (THC) Screen NEGATIVE 07/03/19 07/04/19 07/04/19 18:56 03:43 03:43 WBC 6.5 RBC 3.42 L Hgb 9.6 L Hct 28.8 L MCV 84 MCH 28.0 MCHC 33.2 RDW 18.5 H Plt Count 228 Lymph % (Auto) 30.6 [place] % (Auto) 6.8 Eos % (Auto) 3.1 Baso % (Auto) 0.8 Absolute Neuts (auto) 3.8 Absolute Lymphs (auto) 2.0 Absolute Monos (auto) 0.4 Absolute Eos (auto) 0.2 Absolute Basos (auto) 0.1 Seg Neutrophils % 58.7 ESR Sodium 140.1 Potassium 3.8 Chloride 103 Carbon Dioxide 25 Anion Gap 12 BUN 18 Creatinine 0.81 Est GFR ( Amer) > 60 Est GFR (MDRD) Non-Af > 60 Glucose 72 L Calcium 9.0 Total Bilirubin Direct Bilirubin Neonat Total Bilirubin Neonat Direct Bilirubin Neonat Indirect Bili AST ALT Alkaline Phosphatase Troponin I C-Reactive Protein 9.5 NT-Pro-B Natriuret Pep Total Protein Albumin TSH Urine Color Urine Appearance Urine pH Ur Specific [place] Urine Protein Urine Glucose (UA) Urine Ketones Urine Blood Urine Nitrite Urine Bilirubin Urine Urobilinogen Ur Leukocyte Esterase Urine WBC (Auto) Urine RBC (Auto) Squamous Epi Cells Auto Urine Mucus (Auto) Urine Ascorbic Acid Urine Opiates Screen Urine Methadone Screen Ur Barbiturates Screen Ur Phencyclidine Scrn Ur Amphetamines Screen U Benzodiazepines Scrn Urine Cocaine Screen U Marijuana (THC) Screen Chest/Abdomen CTA 07/03/19 00:00 IMPRESSION: No emboli visualized in the main pulmonary arteries or the segmental branches. Mild bronchial wall -interstitial thickening. Small scattered areas of basilar subsegmental atelectasis. Small bilateral pleural effusions. No consolidation. Chest X-Ray 07/03/19 15:37 IMPRESSION: REACTIVE AIRWAY DISEASE VERSUS VIRAL SYNDROME. NO CONSOLIDATION. Small bilateral effusions. Venous Doppler Study 07/04/19 00:00 IMPRESSION: No evidence of deep venous thrombosis in the bilateral lower extremities. IMPRESSION/RECOMMENDATION: 1. Symptoms of dyspnoea on exertion, PND orthopnea and leg edema most likely secondary to volume/fluid retention secondary to the patient's recent and the use of nonsteroidal anti-inflammatory agent such as ibuprofen. Hence would avoid this. The patient clinically is getting better. The patient's echocardiogram shows normal left ventricle systolic and diastolic function and with no valvular pathology. Hence this is most likely secondary to ibuprofen and the patient's recent . There is no evidence of cardiomyopathy. The patient the patient's have been reassured. 2. Asthma with mild asthmatic attack. This seems to be improving. Continue inhalers/bronchodilators. 3. UTI: Continue antibiotics. 4. Complaints of palpitations with a history of tachycardia and bradycardia. Would recommend the patient have a 30-day event monitor as an outpatient. Would recommend that the patient's attending physician on this admission contact the patient's RETURNED GOODS INSPECTOR who did the to reassess the patient to make sure that there is no intra-abdominal abnormalities. Medications reviewed. Management plan discussed with attending physician on the case. Discussed the echo and the EKG and other lab findings with the patient patient has been. Medical decision making is of moderate complexity. 50 minutes spent on this patient more than 50% of time spent in direct patient care. Will follow in the a.m. If the patient so desires we will follow-up the patient in the office with a 30-day event monitor having been done.
[2019-07-05 05:08] LABS: ABSOLUTE LYMPHOCYTES (AUTO) 1.9 10^3/uL (0.5-4.7); ABSOLUTE MONOCYTES (AUTO) 0.4 10^3/uL (0.1-1.4); ABSOLUTE NEUT (AUTO) 4.6 10^3/uL (1.7-8.2); BASOPHILS % (AUTO) 0.5 % (0-2); EOSINOPHILS % (AUTO) 0.3 % (0-6); HEMATOCRIT 32.4 % (36.0-47.0); HEMOGLOBIN 10.6 g/dL (12.0-15.5); LYMPHOCYTES % (AUTO) 27.3 % (13-45); MEAN CORPUSCULAR HEMOGLOBIN 27.6 pg (27.0-33.4); MEAN CORPUSCULAR HGB CONC 32.7 g/dL (32.0-36.0); MEAN CORPUSCULAR VOLUME 84 fl (80-97); MONOCYTES % (AUTO) 6.2 % (3-13); PLATELET COUNT 281 10^3/uL (150-450); RED BLOOD COUNT 3.84 10^6/uL (3.72-5.28); RED CELL DISTRIBUTION WIDTH 18.2 % (11.5-14.0); SEGMENTED NEUTROPHILS % (AUTO) 65.7 % (42-78); TOTAL CELLS COUNTED % (AUTO) 100 %; WHITE BLOOD COUNT 6.9 10^3/uL (4.0-10.5)
[2019-07-05] MEDS: HEPARIN SOD (PORCINE) 5,000 UNIT/ML 1 ML VIAL SUBCUT SCH (05:27)
[2019-07-05] MEDS: PANTOPRAZOLE SODIUM 40 MG TABLET.DR PO SCH (05:27)
[2019-07-05 05:31] LABS: ANION GAP 12 (5-19); BLOOD UREA NITROGEN 20 mg/dL (7-20); CALCIUM 9.7 mg/dL (8.4-10.2); CARBON DIOXIDE 27 mmol/L (22-30); CHLORIDE 101 mmol/L (98-107); GLUCOSE 92 mg/dL (75-110); POTASSIUM 3.9 mmol/L (3.6-5.0)
--- NOTE | 2019-07-05 07:01 | PDOC CONSULTATION ---
Consultation Consult Date: 07/05/19 Provider Consulted: SUKI ORDOÑEZ Consult reason:: recent c/section delivery History of Present Illness Admission Date/PCP: 07/03/19 18:48 BRE HIGH MD History of Present Illness: WESLEY CALDERA is a 29 year old female who was delivered by repeat c/section on 06/23/2019. She presented to [facility] to her provider where her bps were found to be elevated and c/o fluid retention. She was started on antihypertensives as well as lasix for diuresis. She c/o SOB and dyspnea which worsened causing her to go to ER for evaluation where she was diagnosised with CHF and admitted. We were consulted mainly due to her recent delivery. Past Medical History Cardiac Medical History: Denies: Coronary Artery Disease, Myocardial Infarction, Hypertension Pulmonary Medical History: Reports: Asthma Denies: Bronchitis, Chronic Obstructive Pulmonary Disease (COPD), Pneumonia Neurological Medical History: Denies: Seizures Musculoskeltal Medical History: Reports: Arthritis - BACK Infectious Medical History: Reports: Methicillin-Resistant Staph Aureus Social History Lives with: Family Smoking Status: Never Smoker Frequency of Alcohol Use: None Hx Recreational Drug Use: No Drugs: None Hx Prescription Drug Abuse: No Family History Family History: Reviewed & Not Pertinent, DM, Hypertension, Thyroid Disfunction Parental Family History Reviewed: Yes Children Family History Reviewed: Yes Sibling(s) Family History Reviewed.: Yes Medication/Allergy Home Medications: Albuterol Sulfate [Proair HFA Inhalation Aerosol 8.5 gm MDI] 1 puff IH Q4HP PRN 07/04/19 Epinephrine [Epipen 2-Arjun] 0.3 mg IM .FOR ANAPHYLAXIS PRN 07/04/19 Ferrous Sulfate [Feosol 325 mg Tablet] 325 mg PO DAILY 07/04/19 Fluticasone/Salmeterol [Advair 250-50 Diskus 14 Dose/Diskus] 1 puff IH Q12 07/04/19 Furosemide [Lasix 20 mg Tablet] 20 mg PO DAILY 07/04/19 Ibuprofen [Motrin 800 mg Tablet] 800 mg PO Q8HP PRN 07/04/19 Montelukast Sodium [Singulair 10 mg Tablet] 10 mg PO DAILY 07/04/19 Oxycodone HCl/Acetaminophen [Percocet 5-325 mg Tablet] 1 tab PO Q4HP PRN 07/04/19 Allergies/Adverse Reactions: latex [Latex] Allergy (Severe, Verified 07/03/19 15:25) SKIN SWELLING Shellfish * [Shellfish] Allergy (Severe, Verified 07/03/19 15:25) Anaphylaxis Physical Exam - Physical Exam Vital Signs: Temp Pulse Resp BP Pulse Ox 98.8 F 51 L 18 120/64 98 07/04/19 20:00 07/05/19 02:00 07/04/19 20:05 07/04/19 20:00 07/04/19 20:05 Intake & Output 07/03/19 07/04/19 07/05/19 06:59 06:59 06:59 Intake Total 700 740 Output Total 1300 Balance -600 740 Weight 89 kg General appearance: PRESENT: no acute distress, cooperative - incision is clean dry intact Result Laboratory Results: 07/05/19 03:56 07/05/19 03:56 07/05/19 07/05/19 03:56 03:56 WBC 6.9 RBC 3.84 Hgb 10.6 L Hct 32.4 L MCV 84 MCH 27.6 MCHC 32.7 RDW 18.2 H Plt Count 281 Seg Neutrophils % 65.7 Sodium 140.1 Potassium 3.9 Chloride 101 Carbon Dioxide 27 Anion Gap 12 BUN 20 Creatinine 0.77 Est GFR ( Amer) > 60 Glucose 92 Calcium 9.7 07/03/19 15:48 Clean Catch Midstream Urine Culture - Final Group B Beta Streptococcus 07/03/19 15:48 Troponin I < 0.012 NT-Pro-B Natriuret Pep 1030 H Impressions: Chest/Abdomen CTA 07/03/19 00:00 IMPRESSION: No emboli visualized in the main pulmonary arteries or the segmental branches. Mild bronchial wall -interstitial thickening. Small scattered areas of basilar subsegmental atelectasis. Small bilateral pleural effusions. No consolidation. Chest X-Ray 07/03/19 15:37 IMPRESSION: REACTIVE AIRWAY DISEASE VERSUS VIRAL SYNDROME. NO CONSOLIDATION. Small bilateral effusions. Venous Doppler Study 07/04/19 00:00 IMPRESSION: No evidence of deep venous thrombosis in the bilateral lower extremities. Assessment & Plan - Diagnosis (1) Acute CHF (congestive heart failure) Qualifiers: Heart failure type: unspecified Qualified Code(s): I50.9 - Heart failure, unspecified Is this a current diagnosis for this admission?: Yes (2) Anemia Qualifiers: Anemia type: iron deficiency Is this a current diagnosis for this admission?: Yes (3) Asthma exacerbation Qualifiers: Asthma severity: mild Is this a current diagnosis for this admission?: Yes (4) Congestive heart failure Qualifiers: Heart failure type: unspecified Heart failure chronicity: acute Qualified Code(s): I50.9 - Heart failure, unspecified (5) Obesity (BMI 30-39.9) Is this a current diagnosis for this admission?: Yes (6) Shortness of breath Is this a current diagnosis for this admission?: Yes (7) UTI (urinary tract infection) Qualifiers: Urinary tract infection type: site unspecified Hematuria presence: with hematuria Qualified Code(s): N39.0 - Urinary tract infection, site not specified; R31.9 - Hematuria, unspecified Is this a current diagnosis for this admission?: Yes - Time Time Spent: 30 to 50 Minutes Critical Time spent with patient: Less than 15 minutes - Inpatient Certification Based on my medical assessment, after consideration of the patient's comorbidities, presenting symptoms, or acuity I expect that the services needed warrant INPATIENT care.: Yes I certify that my determination is in accordance with my understanding of [facility] 's requirements for reasonable and necessary INPATIENT services [42 CFR 412.3e].: Yes Medical Necessity: Significant Comorbidiites Make Outpatient Treatment Too Risky - Plan Summary Plan Summary: patient does not appear to be pre-eclamptic based on current labs and blood pressures (normal range here). Would recommend getting a CMP and uric acid to verify however, expect to be normal. (Would not get a urine evaluation as she has recently delivered which will skew the protein results regardless of route of delivery). Current medical mgmt for her CHF will defer to her primary care team. This event does not appear to be related to her recent and likely coincidental. Thank you for the consultation.
[2019-07-05] MEDS: IPRATROPIUM/ALBUTEROL 0.5-2.5 MG/3 ML AMPUL NEB SCH ×2 (07:48→14:16)
[2019-07-05 07:56] LABS: ALBUMIN 4.2 g/dL (3.5-5.0); ALKALINE PHOSPHATASE 124 U/L (38-126); ASPARTATE AMINO TRANSFERASE 16 U/L (14-36); BILIRUBIN,DIRECT 0.1 mg/dL (0.0-0.4); BILIRUBIN,TOTAL 0.5 mg/dL (0.2-1.3); TOTAL PROTEIN 6.9 g/dL (6.3-8.2); URIC ACID 7.8 mg/dL (2.5-6.2)
[2019-07-05] MEDS: PREDNISONE 20 MG TABLET PO SCH (10:42)
[2019-07-05] MEDS: DOCUSATE SODIUM 100 MG CAPSULE PO SCH (10:42)
[2019-07-05] MEDS: FUROSEMIDE INJ/PF 40 MG/4 ML SDV IV SCH (10:45)
[2019-07-05] MEDS: CEFTRIAXONE 1 GM/D5W RTU 1 GM/50 ML RTUPB IV SCH (10:52)
[2019-07-05 12:34] VITALS: BP 116/70
--- NOTE | 2019-07-05 14:20 | PDOC DISCHARGE SUMMARY ---
General - Admit/Disc Date/PCP Admission Date/Primary Care Provider: 07/03/19 18:48 BRE HIGH MD Discharge Date: 07/05/19 - Additional Information Discharge Diet: Cardiac Discharge Activity: Activity As Tolerated, Balance Activity w/Rest, Weigh Daily Prescriptions: Furosemide [Lasix 40 mg Tablet] 40 mg PO DAILY #7 tablet Home Medications: Albuterol Sulfate [Proair HFA Inhalation Aerosol 8.5 gm MDI] 1 puff IH Q4HP PRN 07/04/19 Epinephrine [Epipen 2-Arjun] 0.3 mg IM .FOR ANAPHYLAXIS PRN 07/04/19 Ferrous Sulfate [Feosol 325 mg Tablet] 325 mg PO DAILY 07/04/19 Fluticasone/Salmeterol [Advair 250-50 Diskus 14 Dose/Diskus] 1 puff IH Q12 07/04/19 Montelukast Sodium [Singulair 10 mg Tablet] 10 mg PO DAILY 07/04/19 Oxycodone HCl/Acetaminophen [Percocet 5-325 mg Tablet] 1 tab PO Q4HP PRN 07/04/19 Furosemide [Lasix 40 mg Tablet] 40 mg PO DAILY #7 tablet 07/05/19 History of Present Illness History of Present Illness: WESLEY CALDERA is a 29 year old female A3(miscarriages) past medical history of asthma who recently delivered a baby through on 06/23/2019 resenting to ED complaining of worsening shortness of breath. She is reporting orthopnea, PND, and lower extremity swelling for the last 4 days, presented to [facility], was told that it could be part of her recent , was given Lasix and sent home. Patient has been taking her Lasix however her shortness of breath has been getting worse. She is also reporting intermittent chest heaviness, sharp chest pain, lasting seconds, no alleviating or aggravating factors identified, denies any fever however stating that she gets goosebumps alot. During the she was noted to have tachycardia and a cardiology visit was arranged by [facility] however she has not been able to see a information assurance officer yet. On this visit she is reporting that she has noted that her overall heart rate drops to 40s, noted on her smart watch. Also reporting nausea and loose stools for the last several days but denies any abdominal pain, recent upper respiratory infection, recent travel, herbal medication ingestion, joint pain, joint swelling, vision changes, vaginal discharge. She is also denying personal or family history of CAD. she had dysuria however resolved at the moment. In ED she was noted to have a hemoglobin of 9.7 which is her baseline, proBNP of 1030 positive UA. Negative troponins and EKG. Was given IV Lasix, started on IV antibiotics and hospital was consulted for admission. Hospital Course Hospital Course: (1) Acute CHF (congestive heart failure) Recent history of hospitalization. 06/23/2019. CTA negative for PE. CRP 9.5. ESR 24. proBNP 1030. UDS negative. EKG sinus rhythm, troponins negative. Denies any personal family history of CAD. Was observed on telemetry. Received cardiac diet, fluid restriction, IV Lasix, strict in and out, daily weights. 2D echo shows normal EF. bilateral lower extremity Doppler negative for DVT. Cardiology and [facility] consulted. Patient is cleared for discharge by cardiology and [facility]. Continue Lasix 40 mg daily for 1 week. Cardiology will arrange for outpatient heart rate monitoring. (2) UTI (urinary tract infection) Urine culture growing group B strep. Received 3 days of IV Rocephin. (3) Obesity (BMI 30-39.9) TSH WNL on recent admission. (4) Anemia Possibly due to recent . Continue oral iron (5) Asthma exacerbation Likely due to acute CHF. Noted to have wheezing on admission. Resolved. Continue home medications. Physical Exam Vital Signs: Temp Pulse Resp BP Pulse Ox 98.1 F 80 16 116/70 98 07/05/19 11:07 07/05/19 11:07 07/05/19 11:07 07/05/19 11:07 07/05/19 11:07 Intake & Output 07/04/19 07/05/19 07/06/19 06:59 06:59 06:59 Intake Total 700 740 300 Output Total 1300 Balance -600 740 300 Weight 196 lb 3.382 oz Exam: Patient is no acute distress Alert oriented to time place person No anxiety or depression Head: atraumatic normocephalic Pupils: are equal reactive Neck: is supple and trachea is central no lymphadenopathy No pharyngeal erythema or exudates Heart: Regular rate and rhythm Lungs: clear no distress Abdomen: nontender nondistended Neurological exam: unremarkable Musculoskeletal: No joint swelling or effusion chronic lower back pain and tenderness No suicidal or homicidal ideation Results Laboratory Results: 07/05/19 03:56 07/05/19 03:56 07/05/19 07/05/19 07/05/19 03:56 03:56 03:56 WBC 6.9 RBC 3.84 Hgb 10.6 L Hct 32.4 L MCV 84 MCH 27.6 MCHC 32.7 RDW 18.2 H Plt Count 281 Seg Neutrophils % 65.7 Sodium 140.1 Cancelled Potassium 3.9 Cancelled Chloride 101 Cancelled Carbon Dioxide 27 Cancelled Anion Gap 12 Cancelled BUN 20 Cancelled Creatinine 0.77 Cancelled Est GFR ( Amer) > 60 Cancelled Est GFR (Non-Af Amer) Cancelled Glucose 92 Cancelled Uric Acid 7.8 H Calcium 9.7 Cancelled Total Bilirubin 0.5 AST 16 Alkaline Phosphatase 124 Total Protein 6.9 Albumin 4.2 07/03/19 15:48 Clean Catch Midstream Urine Culture - Final Group B Beta Streptococcus 07/03/19 15:48 Troponin I < 0.012 NT-Pro-B Natriuret Pep 1030 H Impressions: Chest/Abdomen CTA 07/03/19 00:00 IMPRESSION: No emboli visualized in the main pulmonary arteries or the segmental branches. Mild bronchial wall -interstitial thickening. Small scattered areas of basilar subsegmental atelectasis. Small bilateral pleural effusions. No consolidation. Chest X-Ray 07/03/19 15:37 IMPRESSION: REACTIVE AIRWAY DISEASE VERSUS VIRAL SYNDROME. NO CONSOLIDATION. Small bilateral effusions. Venous Doppler Study 07/04/19 00:00 IMPRESSION: No evidence of deep venous thrombosis in the bilateral lower extremities. Qualifiers - * PATIENT BEING DISCHARGED WITH ANY OF THE FOLLOWING DIAGNOSIS: No Acute Heart Failure - Is this a Heart Failure Patient?: Yes Documentation of LVEF assessment?: Yes LVEF < 40%?: No- if no continue to question #3 Plan Time Spent: Greater than 30 Minutes - 33 minutes
--- NOTE | 2019-07-05 21:13 | Progress Note ---
Provider Note Provider Note: CARDIOLOGY PROGRESS NOTE by Dr. Adela Hagen on 07/05/2019. Subjective: The patient has no further PND orthopnea or leg edema. She does have some degree of shortness of breath with exertion, but this is getting better. There is no palpitations. Her asthma attack has resolved. The patient has no chest pain or discomfort. PHYSICAL EXAMINATION: The patient is moderately obese. In no acute distress. She is well-groomed. Selected Entries 07/05/19 11:07 Temperature 98.1 F Temperature Oral Source Pulse Rate 80 Respiratory 16 Rate Blood Pressure 116/70 Blood Pressure 85 Mean BP Location Left Arm BP Position Sitting O2 Sat by Pulse 98 Oximetry Oxygen Delivery Room Air Method HEAD: Is atraumatic normocephalic. EYES: Tubes are equal round regular reactive light accommodation. Extraocular movements are normal. There is no conjunctival pallor. There is no scleral icterus. ENT is negative. NECK: Is supple there is no JVD. There is no lymphadenopathy. There is no accessory muscle respiration use. There is no goiter. LUNGS: There are few scattered rhonchi. Otherwise lungs are clear without any wheezing or rales. There is no chest wall tenderness on palpation. HEART: S1-S2 is heard. There is no S3 gallop. There is no S4 gallop. There is systolic murmur left sternal border and the apex there is no rub. ABDOMEN: Is mildly obese. Nontender. There is no hepatospleno megaly bowel sounds are well heard. The patient's scar of C-sec tion is clean and healing well. EXTREMITIES: Femorals are deep. Femorals are felt. There is no femoral bruits. Leg pulses are well felt. There is trace pedal edema. There is no DVT or cellulitis. There is no cyanosis or clubbing. OCCUPATIONAL SAFETY SPECIALIST: The patient is conscious awake alert oriented x3 with no focal deficits. PSYCHIATRIC: Patient judgment insight are intact her affect is normal. Labs- All tests 24 hr 07/05/19 07/05/19 07/05/19 03:56 03:56 03:56 WBC 6.9 RBC 3.84 Hgb 10.6 L Hct 32.4 L MCV 84 MCH 27.6 MCHC 32.7 RDW 18.2 H Plt Count 281 Lymph % (Auto) 27.3 [place] % (Auto) 6.2 Eos % (Auto) 0.3 Baso % (Auto) 0.5 Absolute Neuts (auto) 4.6 Absolute Lymphs (auto) 1.9 Absolute Monos (auto) 0.4 Absolute Eos (auto) 0.0 Absolute Basos (auto) 0.0 Seg Neutrophils % 65.7 Sodium 140.1 Cancelled Potassium 3.9 Cancelled Chloride 101 Cancelled Carbon Dioxide 27 Cancelled Anion Gap 12 Cancelled BUN 20 Cancelled Creatinine 0.77 Cancelled Est GFR ( Amer) > 60 Cancelled Est GFR (Non-Af Amer) Cancelled Est GFR (MDRD) Non-Af > 60 Cancelled Glucose 92 Cancelled Uric Acid 7.8 H Calcium 9.7 Cancelled Total Bilirubin 0.5 Direct Bilirubin 0.1 Neonat Total Bilirubin Not Reportable Neonat Direct Bilirubin Not Reportable Neonat Indirect Bili Not Reportable AST 16 ALT 16 Alkaline Phosphatase 124 Total Protein 6.9 Albumin 4.2 EGFR Cancelled Chest/Abdomen CTA 07/03/19 00:00 IMPRESSION: No emboli visualized in the main pulmonary arteries or the segmental branches. Mild bronchial wall -interstitial thickening. Small scattered areas of basilar subsegmental atelectasis. Small bilateral pleural effusions. No consolidation. Chest X-Ray 07/03/19 15:37 IMPRESSION: REACTIVE AIRWAY DISEASE VERSUS VIRAL SYNDROME. NO CONSOLIDATION. Small bilateral effusions. Venous Doppler Study 07/04/19 00:00 IMPRESSION: No evidence of deep venous thrombosis in the bilateral lower extremities. The patient has been by [facility], and she is apparent that there is no problems with the surgery. IMPRESSION/RECOMMENDATION: 1. Symptoms of dyspnoea on exertion, PND orthopnea and leg edema most likely secondary to volume/fluid retention secondary to the patient's recent and the use of nonsteroidal anti-inflammatory agent such as ibuprofen. Hence would avoid this. The patient clinically is getting better. The patient's echocardiogram shows normal left ventricle systolic and diastolic function and with no valvular pathology. Hence this is most likely secondary to ibuprofen and the patient's recent . There is no evidence of cardiomyopathy. The patient the patient's have been reassured. 2. Asthma with mild asthmatic attack. This seems to be improving. Continue inhalers/bronchodilators. 3. UTI: Continue antibiotics. 4. Complaints of palpitations with a history of tachycardia and bradycardia. Would recommend the patient have a 30-day event monitor as an outpatient. Medications reviewed. Management plan discussed with the patient in detail. Management plan discussed with the attending physician on the case. Would recommend the patient have a 30-day event monitor. This has been discussed with the patient and patient's . All questions answered. Will sign off as the patient is being discharged. We will follow the patient in the office.
== END 2019-07-05 15:48 | disposition home or self-care (01) | DRG 776 ==
LOC: ER 15:20 → EH 18:48 → 4S 20:49
PROVIDERS: ADMIT Internal Medicine; ATTEND Internal Medicine
DX: O99.43 Diseases of the circulatory system complicating the puerperium (principal); O86.29 Other urinary tract infection following delivery; J45.901 Unspecified asthma with (acute) exacerbation; I50.9 Heart failure, unspecified; B95.1 Streptococcus, group B, as the cause of diseases classified elsewhere; O99.53 Diseases of the respiratory system complicating the puerperium; O90.81 Anemia of the puerperium; D50.9 Iron deficiency anemia, unspecified; R31.9 Hematuria, unspecified; O99.215 Obesity complicating the puerperium; E66.9 Obesity, unspecified; Z86.14 Personal history of Methicillin resistant Staphylococcus aureus infection; Z79.899 Other long term (current) drug therapy; Z91.040 Latex allergy status; Z91.013 Allergy to seafood; Z79.1 Long term (current) use of non-steroidal anti-inflammatories (NSAID); Z79.891 Long term (current) use of opiate analgesic; Z82.49 Family history of ischemic heart disease and other diseases of the circulatory system; Z83.3 Family history of diabetes mellitus
CPT/HCPCS: 36415; 71045; 71275; 80048; 80053; 80076; 80307; 81001; 83880; 84443; 84484; 84550; 85025; 85652; 86140; 87040; 87086; 87088; 93005; 93010; 93306; 93970; 94640; 96365; 96375; 99285; J0696; J1644; J1940; J3490; J7512; J7620

== ENCOUNTER 2019-08-26 09:37 | Observation (INO) | payer MEDICAID ==
--- NOTE | 2019-08-26 10:05 | ER Document Report ---
ED Medical Screen (RME) - General Chief Complaint: Chest Wall Pain Stated Complaint: CHEST PAIN Time Seen by Provider: 08/26/19 10:02 Primary Care Provider: BRE HIGH MD [Primary Care Provider] - Follow up as needed Mode of Arrival: Ambulatory Information source: Patient Notes: 29-year-old female presents to ED for cough congestion chest wall pain. She st ates she is concerned about her heart also after she went into heart failure after her baby was born in June. There is minimal swelling to hands and feet at this time she said it is pretty much her normal now. She does have a rough cough she denies smoking drinking or use of drugs. She states she is breast-feeding and has not had a menstrual cycle since her childbirth. Tubal ligation at childbirth I have greeted and performed a rapid initial assessment of this patient. A comprehensive ED assessment and evaluation of the patient, analysis of test results and completion of medical decision making process will be conducted by an additional ED providers. TRAVEL OUTSIDE OF THE [place] IN LAST 30 DAYS: No - Related Data Allergies/Adverse Reactions: latex [Latex] Allergy (Severe, Verified 08/26/19 09:47) SKIN SWELLING Shellfish * [Shellfish] Allergy (Severe, Verified 08/26/19 09:47) Anaphylaxis Past Medical History - Social History Chew tobacco use (# tins/day): No Frequency of alcohol use: None Drug Abuse: None - Past Medical History Cardiac Medical History: Denies: Hx Coronary Artery Disease, Hx Heart Attack, Hx Hypertension Pulmonary Medical History: Reports: Hx Asthma Denies: Hx Bronchitis, Hx COPD, Hx Pneumonia Neurological Medical History: Denies: Hx Cerebrovascular Accident, Hx Seizures Renal/ Medical History: Denies: Hx Peritoneal Dialysis Musculoskeltal Medical History: Reports Hx Arthritis - BACK, Reports Hx Musculoskeletal Deformity, Reports Hx Musculoskeletal Trauma Skin Medical History: Reports Hx MRSA - arm Infectious Medical History: Reports: Hx MRSA Past Surgical History: Reports: Hx Appendectomy, Hx Dilation and Curettage, Hx Gynecologic Surgery - D&C, Hx Tubal Ligation. Denies: Hx Hysterectomy - Immunizations Immunizations up to date: Yes Hx Diphtheria, Pertussis, Tetanus Vaccination: - UNSURE Doctor's Discharge - Discharge Referrals: BRE HIGH MD [Primary Care Provider] - Follow up as needed
[2019-08-26 10:32] LABS: ABSOLUTE EOSINOPHILS # (AUTO) 0.1 10^3/uL (0.0-0.6); ABSOLUTE LYMPHOCYTES (AUTO) 2.7 10^3/uL (0.5-4.7); ABSOLUTE MONOCYTES (AUTO) 0.6 10^3/uL (0.1-1.4); ABSOLUTE NEUT (AUTO) 6.5 10^3/uL (1.7-8.2); BASOPHILS % (AUTO) 0.4 % (0-2); EOSINOPHILS % (AUTO) 0.5 % (0-6); HEMATOCRIT 37.3 % (36.0-47.0); HEMOGLOBIN 12.3 g/dL (12.0-15.5); LYMPHOCYTES % (AUTO) 27.7 % (13-45); MEAN CORPUSCULAR HEMOGLOBIN 28.4 pg (27.0-33.4); MEAN CORPUSCULAR VOLUME 86 fl (80-97); PLATELET COUNT 236 10^3/uL (150-450); RED BLOOD COUNT 4.32 10^6/uL (3.72-5.28); RED CELL DISTRIBUTION WIDTH 16.4 % (11.5-14.0); SEGMENTED NEUTROPHILS % (AUTO) 65.4 % (42-78); TOTAL CELLS COUNTED % (AUTO) 100 %; WHITE BLOOD COUNT 9.9 10^3/uL (4.0-10.5)
[2019-08-26 10:33] LABS: APPEARANCE,URINE CLEAR; BILIRUBIN,URINE NEGATIVE (NEGATIVE); COLOR,URINE YELLOW; GLUCOSE, URINE NEGATIVE (NEGATIVE); KETONES,URINE NEGATIVE (NEGATIVE); PROTEIN,URINE NEGATIVE (NEGATIVE); UROBILINOGEN,URINE NEGATIVE mg/dL (<2.0)
[2019-08-26 10:54] LABS: ALBUMIN 3.9 g/dL (3.5-5.0); ALKALINE PHOSPHATASE 83 U/L (38-126); ANION GAP 10 (5-19); ASPARTATE AMINO TRANSFERASE 15 U/L (14-36); BILIRUBIN,DIRECT 0.1 mg/dL (0.0-0.4); BILIRUBIN,TOTAL 0.4 mg/dL (0.2-1.3); BLOOD UREA NITROGEN 17 mg/dL (7-20); CALCIUM 9.5 mg/dL (8.4-10.2); CARBON DIOXIDE 25 mmol/L (22-30); CHLORIDE 108 mmol/L (98-107); GLUCOSE 79 mg/dL (75-110); POTASSIUM 3.7 mmol/L (3.6-5.0); TOTAL PROTEIN 6.5 g/dL (6.3-8.2)
--- NOTE | 2019-08-26 11:02 | RADIOLOGY REPORT (SQ) ---
EXAM DESCRIPTION: CHEST 2 VIEWS COMPLETED DATE/TIME: 08/26/2019 10:51 am REASON FOR STUDY: cough congestion recent chf COMPARISON: 07/03/2019 EXAM PARAMETERS: NUMBER OF VIEWS: two views TECHNIQUE: Digital Frontal and Lateral radiographic views of the chest acquired. RADIATION DOSE: NA LIMITATIONS: none FINDINGS: LUNGS AND PLEURA: No opacities, masses or pneumothorax. No pleural effusion. MEDIASTINUM AND HILAR STRUCTURES: No masses or contour abnormalities. HEART AND VASCULAR STRUCTURES: Heart normal size. No evidence for failure. BONES: No acute findings. HARDWARE: None in the chest. OTHER: No other significant finding. IMPRESSION: NO ACUTE RADIOGRAPHIC FINDING IN THE CHEST. TECHNICAL DOCUMENTATION: JOB ID: [id number] [employer]- All Rights Reserved Reading location - IP/workstation name: [email or web address]
[2019-08-26] MEDS ORDERED: METHYLPREDNISOLONE INJ 125 MG/2 ML SDV IV ONE (11:15)
[2019-08-26] MEDS ORDERED: IPRATROPIUM/ALBUTEROL 0.5-2.5 MG/3 ML AMPUL NEB ONE (11:15)
[2019-08-26] MEDS ORDERED: NORMAL SALINE 1000 ML 1,000 ML IV ONE (11:16)
--- NOTE | 2019-08-26 11:17 | ER Document Report ---
ED Respiratory Problem - General Chief Complaint: Chest Wall Pain Stated Complaint: CHEST PAIN Time Seen by Provider: 08/26/19 10:02 Mode of Arrival: Ambulatory Information source: Patient Notes: Patient presents with cough congestion for the past week and a half. Patient complains of an asthma flareup. Patient states that when her symptoms first started she did have a temperature of 104.2. Patient does have multiple sick family members in the household. Patient does complain of some chest tightness. Patient states that she was seen earlier in the week and placed on steroids but did not improve. Patient does states she has a history of congestive heart failure that she was diagnosed with in June of this year after delivering her child. TRAVEL OUTSIDE OF THE [place] IN LAST 30 DAYS: No - HPI Patient complains to provider of: Asthma, Cough Onset: Other - 10 days Duration: Continuous Quality of pain: Achy Pain Level: 2 Context: Hx asthma. denies: Recent immobilization, Recent surgery, Smoker At home treatment: Bronchodilators, Oral steroids EMS treatments: Bronchodilators Associated symptoms: Chest pain/discomfort, Cough, Short of breath, Wheezing. denies: Bloody cough, Sore Throat Similar symptoms previously: Yes Recently seen / treated by doctor: Yes - Related Data Allergies/Adverse Reactions: latex [Latex] Allergy (Severe, Verified 08/26/19 09:47) SKIN SWELLING Shellfish * [Shellfish] Allergy (Severe, Verified 08/26/19 09:47) Anaphylaxis Past Medical History - General Information source: Patient - Social History Smoking Status: Never Smoker Chew tobacco use (# tins/day): No Frequency of alcohol use: None Drug Abuse: None Occupation: None Lives with: Family Family History: Reviewed & Not Pertinent, DM, Hypertension, Thyroid Disfunction Patient has suicidal ideation: No Patient has homicidal ideation: No - Past Medical History Cardiac Medical History: Reports: Hx Congestive Heart Failure - RECENTLY DIAGNOSED LAST MONTH Pulmonary Medical History: Reports: Hx Asthma Renal/ Medical History: Denies: Hx Peritoneal Dialysis Musculoskeletal Medical History: Reports Hx Arthritis - BACK, Reports Hx Musculoskeletal Deformity, Reports Hx Musculoskeletal Trauma Skin Medical History: Reports Hx MRSA - arm Infectious Medical History: Reports: Hx MRSA Past Surgical History: Reports: Hx Appendectomy, Hx Section, Hx Cholecystectomy, Hx Dilation and Curettage, Hx Gynecologic Surgery - D&C, Hx Tu bal Ligation. Denies: Hx Hysterectomy - Immunizations Immunizations up to date: Yes Hx Diphtheria, Pertussis, Tetanus Vaccination: - UNSURE Review of Systems - Review of Systems Constitutional: Recent illness - Recently treated for asthma with steroids x2 different rounds as well as antibiotic for possible lung infection. EENT: No symptoms reported. denies: Throat pain Cardiovascular: Chest pain Respiratory: Cough, Short of breath, Wheezing Gastrointestinal: No symptoms reported. denies: Nausea, Vomiting Genitourinary: No symptoms reported Female Genitourinary: No symptoms reported Musculoskeletal: No symptoms reported Skin: No symptoms reported Hematologic/Lymphatic: No symptoms reported Neurological/Psychological: No symptoms reported Physical Exam - Vital signs Vitals: Temp Pulse Resp BP Pulse Ox 98.8 F 107 H 22 H 120/90 H 94 08/26/19 10:33 08/26/19 10:33 08/26/19 10:33 08/26/19 10:33 08/26/19 10:33 - General General appearance: Appears well, Alert In distress: None - HEENT Head: Normocephalic Eyes: Scleral icterus Conjunctiva: Normal Nasal: Normal Mouth/Lips: Normal Neck: Normal, Supple - Respiratory Respiratory status: Tachypnea. No: Labored Chest status: Pain with cough Breath sounds: Nonproductive cough, Wheezing Chest palpation: Tender - Cardiovascular Rhythm: Tachycardia Heart sounds: S1 appreciated, S2 appreciated Murmur: No - Abdominal Inspection: Normal Distension: No distension Tenderness: Nontender - Back Back: Tender - Upper thoracic tenderness between shoulder blades - Extremities General upper extremity: Normal inspection, Normal strength General lower extremity: Normal inspection, Normal strength - Neurological Neuro grossly intact: Yes Cognition: Normal Orientation: AAOx4 Genoveva Coma Scale Eye Opening: Spontaneous Genoveva Coma Scale Verbal: Oriented [place] Coma Scale Motor: Obeys Commands Genoveva Coma Scale Total: 15 - Psychological Associated symptoms: Normal affect, Normal mood - Skin Skin Temperature: Warm Skin Moisture: Dry Skin Color: Normal Course - Re-evaluation Re-evalutation: 08/26/19 13:00 pt continues with wheezing bilat. Pt with elevated d dimer, CTA will be added 08/26/19 16:25 Patient's resting heart rate in the 110s, patient ambulate in the hallway, heart rate increases to 130s sat remains greater than 94%. Patient also states now that she has been seen by her primary doctor twice for this already. Patient states initially she had been placed on just steroids and then whenever she went back to her doctor they had placed her on steroids for a second time in addition to a azithromycin. Patient denies any improvement of her symptoms d espite the steroid use and the antibiotics that she had been on. Patient does report being admitted in the past for her asthma. 08/26/19 16:[address] Babb who does agree to accept patient for admission as a telemetry observation at this time. - Vital Signs Vital signs: Temp Pulse Resp BP Pulse Ox 98.3 F 112 H 16 110/65 95 08/26/19 18:58 08/26/19 18:58 08/26/19 18:58 08/26/19 18:58 08/26/19 18:58 - Laboratory Result Diagrams: 08/26/19 10:09 08/26/19 10:09 Laboratory results interpreted by me: 08/26/19 08/26/19 08/26/19 10:00 10:00 10:09 RDW 16.4 H D-Dimer 1.96 H VBG pH VBG pCO2 Chloride NT-Pro-B Natriuret Pep 154 H Leukocyte Esterase Rfl 08/26/19 08/26/19 08/26/19 10:09 10:09 12:50 RDW D-Dimer VBG pH 7.43 H VBG pCO2 32.7 L Chloride 108 H NT-Pro-B Natriuret Pep Leukocyte Esterase Rfl TRACE H 08/26/19 16:31 Labs- Entire Visit 08/26/19 08/26/19 08/26/19 10:00 10:00 10:09 WBC 9.9 RBC 4.32 Hgb 12.3 Hct 37.3 MCV 86 MCH 28.4 MCHC 33.0 RDW 16.4 H Plt Count 236 Lymph % (Auto) 27.7 Hale % (Auto) 6.0 Eos % (Auto) 0.5 Baso % (Auto) 0.4 Absolute Neuts (auto) 6.5 Absolute Lymphs (auto) 2.7 Absolute Monos (auto) 0.6 Absolute Eos (auto) 0.1 Absolute Basos (auto) 0.0 Seg Neutrophils % 65.4 D-Dimer 1.96 H VBG pH VBG pCO2 VBG HCO3 VBG Base Excess Sodium Potassium Chloride Carbon Dioxide Anion Gap BUN Creatinine Est GFR ( Amer) Est GFR (MDRD) Non-Af Glucose Calcium Total Bilirubin Direct Bilirubin Neonat Total Bilirubin Neonat Direct Bilirubin Neonat Indirect Bili AST ALT Alkaline Phosphatase Troponin I NT-Pro-B Natriuret Pep 154 H Total Protein Albumin Urine Color Urine Appearance Urine pH Ur Specific Cullen Urine Protein Urine Glucose (UA) Urine Ketones Urine Blood Urine Nitrite (Reflex) Urine Bilirubin Urine Urobilinogen Leukocyte Esterase Rfl Urine RBC (Auto) Urine WBC (Reflex) Squamous Epi Cells Auto Urine Mucus (Auto) Urine Ascorbic Acid 08/26/19 08/26/19 08/26/19 10:09 10:09 10:09 WBC RBC Hgb Hct MCV MCH MCHC RDW Plt Count Lymph % (Auto) Hale % (Auto) Eos % (Auto) Baso % (Auto) Absolute Neuts (auto) Absolute Lymphs (auto) Absolute Monos (auto) Absolute Eos (auto) Absolute Basos (auto) Seg Neutrophils % D-Dimer VBG pH VBG pCO2 VBG HCO3 VBG Base Excess Sodium 142.5 Potassium 3.7 Chloride 108 H Carbon Dioxide 25 Anion Gap 10 BUN 17 Creatinine 0.81 Est GFR ( Amer) > 60 Est GFR (MDRD) Non-Af > 60 Glucose 79 Calcium 9.5 Total Bilirubin 0.4 Direct Bilirubin 0.1 Neonat Total Bilirubin Not Reportable Neonat Direct Bilirubin Not Reportable Neonat Indirect Bili Not Reportable AST 15 ALT 15 Alkaline Phosphatase 83 Troponin I < 0.012 NT-Pro-B Natriuret Pep Total Protein 6.5 Albumin 3.9 Urine Color YELLOW Urine Appearance CLEAR Urine pH 6.0 Ur Specific Cullen 1.020 Urine Protein NEGATIVE Urine Glucose (UA) NEGATIVE Urine Ketones NEGATIVE Urine Blood NEGATIVE Urine Nitrite (Reflex) NEGATIVE Urine Bilirubin NEGATIVE Urine Urobilinogen NEGATIVE Leukocyte Esterase Rfl TRACE H Urine RBC (Auto) 1 Urine WBC (Reflex) 1 Squamous Epi Cells Auto 3 Urine Mucus (Auto) FEW Urine Ascorbic Acid NEGATIVE 08/26/19 12:50 WBC RBC Hgb Hct MCV MCH MCHC RDW Plt Count Lymph % (Auto) Hale % (Auto) Eos % (Auto) Baso % (Auto) Absolute Neuts (auto) Absolute Lymphs (auto) Absolute Monos (auto) Absolute Eos (auto) Absolute Basos (auto) Seg Neutrophils % D-Dimer VBG pH 7.43 H VBG pCO2 32.7 L VBG HCO3 21.4 VBG Base Excess -2.1 Sodium Potassium Chloride Carbon Dioxide Anion Gap BUN Creatinine Est GFR ( Amer) Est GFR (MDRD) Non-Af Glucose Calcium Total Bilirubin Direct Bilirubin Neonat Total Bilirubin Neonat Direct Bilirubin Neonat Indirect Bili AST ALT Alkaline Phosphatase Troponin I NT-Pro-B Natriuret Pep Total Protein Albumin Urine Color Urine Appearance Urine pH Ur Specific Cullen Urine Protein Urine Glucose (UA) Urine Ketones Urine Blood Urine Nitrite (Reflex) Urine Bilirubin Urine Urobilinogen Leukocyte Esterase Rfl Urine RBC (Auto) Urine WBC (Reflex) Squamous Epi Cells Auto Urine Mucus (Auto) Urine Ascorbic Acid - Diagnostic Test Radiology reviewed: Image reviewed, Reports reviewed - EKG Interpretation by Me EKG shows normal: Sinus rhythm Rate: Tachycardia Additional EKG results interpreted by me: 08/26/19 16:[address] elevation, QTc 443 Discharge - Discharge Clinical Impression: Shortness of breath, Pneumonia Condition: Stable Disposition: ADMITTED OBSERVATION Admitting Provider: Holley (Hospitalist) Unit Admitted: Telemetry
--- NOTE | 2019-08-26 14:09 | RADIOLOGY REPORT (SQ) ---
EXAM DESCRIPTION: CTA CHEST COMPLETED DATE/TIME: 08/26/2019 1:49 pm REASON FOR STUDY: dyspnea, elevated dimer COMPARISON: 07/03/2019 TECHNIQUE: CT scan of the chest performed using helical scanning technique with dynamic intravenous contrast injection. Images reviewed with lung, soft tissue and bone windows. Reconstructed coronal and sagittal MPR images reviewed. Additional 3 dimensional post-processing performed to develop Maximal Intensity Projection images (HI P). All images stored on PACS. All CT scanners at this facility use dose modulation, iterative reconstruction, and/or weight based d osing when appropriate to reduce radiation dose to as low as reasonably achievable (ALARA). [facility]: Dose Right [facility]: CareDose [facility]: Dose Right [facility]: Teradose 4D [facility]: [employer] CONTRAST TYPE AND DOSE: contrast/concentration: Isovue 350.00 mg/ml; Total Contrast Delivered: 60.0 ml; Total Saline Delivered: 70.0 ml Contrast bolus adequate for pulmonary arteries and aorta. RENAL FUNCTION: BUN 17, creatinine 0.81 RADIATION DOSE: CT Rad equipment meets quality standard of care and radiation dose reduction techniq ues were employed. CTDIvol: 13.2 - 14.3 mGy. DLP: 528 mGy-cm. . LIMITATIONS: None. FINDINGS: LUNGS AND PLEURA: There is bibasilar dependent atelectasis. There is ground-glass opacity in the lung bases most likely atelectasis as well. There is focal consolidation in the left perihil ar distribution. AORTA AND GREAT VESSELS: No aneurysm. Contrast bolus not optimized for the aorta. HEART: No pericardial effusion. No significant coronary artery calcifications. PULMONARY ARTERIES: No emboli visualized in the main pulmonary arteries or the segmental branches. HILAR AND MEDIASTINAL STRUCTURES: No identified masses or abnormal nodes. HARDWARE: None in the chest. UPPER ABDOMEN: No significant findings. Limited exam. THYROID AND OTHER SOFT TISSUES: No masses. No adenopathy. BONES: No acute or significant finding. 3D MIPS: Confirm above findings. OTHER: No other significant finding. IMPRESSION: Ground-glass opacities in the lung bases with focal consolidation in the left lower lobe . This may represent pulmonary edema. Developing pneumonia cannot be excluded. There is focal atel ectasis in the lung bases as well. No pulmonary emboli. COMMENT: Quality ID # [id number]: Final reports with documentation of one or more dose reduction techniques (e.g., Automated exposure control, adjustment of the mA and/or kV according to patient size, use of iterative reconstruction technique) TECHNICAL DOCUMENTATION: JOB ID: [id number] [employer] [place]- All Rights Reserved Reading location - IP/workstation name: [email or web address]
[2019-08-26] MEDS ORDERED: DOXYCYCLINE HYCLATE 100 MG TABLET PO ONE (14:31)
[2019-08-26] MEDS ORDERED: CEFTRIAXONE 1 GM/D5W RTU 1 GM/50 ML RTUPB IV ONE (14:31)
[2019-08-26] MEDS: ALBUTEROL SULFATE 0.083% NEB 2.5 MG/3 ML AMPUL NEB SCH ×2 (15:10→15:49)
[2019-08-26 15:51] LABS: VENOUS BLOOD BASE EXCESS -2.1 mmol/L; VENOUS BLOOD HCO3 21.4 mmol/L (20-32); VENOUS BLOOD PCO2 32.7 mmHg (35-63); VENOUS BLOOD PH 7.43 (7.30-7.42)
[2019-08-26] MEDS ORDERED: ALBUTEROL SULFATE 0.083% NEB 2.5 MG/3 ML AMPUL NEB ONE (16:26)
[2019-08-26] MEDS ORDERED: MAGNESIUM SULFATE/D5W 1 GM/100 ML RTUPB IV ONE (16:26)
--- NOTE | 2019-08-26 17:35 | PDOC H&P ---
History of Present Illness Admission Date/PCP: 08/26/19 16:36 BRE HIGH MD Patient complains of: wheezing, SOB History of Present Illness: WESLEY CALDERA is a 29 year old female with a past medical history of asthma and questionable post cardiomyopathy who presented with persistent wheezing and shortness of breath. Patient reports that she has been having having wheezing and increasing shortness of breath for more than a week now. She was treated for asthma exacerbation by her PCP and was given a course of steroids. She says she did no t improve and she was given another prescription of steroids and azithromycin for 5 days but she continues to have persistent wheezing and shortness of breath. She does report of associated moderately productive cough with whitish phlegm. In the ER, chest CTA was done which ruled out PE but did show possible left lower lobe pneumonia. Past Medical History Cardiac Medical History: Reports: Congestive Heart Failure - RECENTLY DIAGNOSED LAST MONTH Denies: Coronary Artery Disease, Myocardial Infarction, Hypertension Pulmonary Medical History: Reports: Asthma Denies: Bronchitis, Chronic Obstructive Pulmonary Disease (COPD), Pneumonia Neurological Medical History: Denies: Seizures Musculoskeltal Medical History: Reports: Arthritis - BACK Hematology: Reports: Anemia Infectious Medical History: Reports: Methicillin-Resistant Staph Aureus Past Surgical History Past Surgical History: Reports: Appendectomy, Section, Cholecystectomy, Tubal Ligation Denies: Hysterectomy Social History Smoking Status: Never Smoker Electronic Cigarette use?: No Frequency of Alcohol Use: None Hx Recreational Drug Use: No Drugs: None Hx Prescription Drug Abuse: No Family History Family History: Reviewed & Not Pertinent, DM, Hypertension, Thyroid Disfunction Parental Family History Reviewed: Yes - No premature CAD Children Family History Reviewed: No Sibling(s) Family History Reviewed.: No Medication/Allergy Home Medications: Albuterol Sulfate [Proair Hfa Inhalation Aerosol 8.5 gm Mdi] 1 puff IH Q4HP PRN 08/26/19 Albuterol Sulfate [Ventolin 0.083% Neb 2.5 mg/3 ml Ampul] 1 vial NEB Q4HP PRN 08/26/19 Cetirizine HCl [Zyrtec 10 mg Tablet] 10 mg PO DAILY 08/26/19 Fluticasone Propionate [Flonase Nasal [place] 50 Mcg/[place] 16 gm] 1 spray NAREB DAILY 08/26/19 Fluticasone/Salmeterol [Advair 250-50 Diskus 14 Dose/Diskus] 1 inh IH Q12 08/26/19 Ipratropium/Albuterol Sulfate [Duoneb 3 ml Ampul] 3 ml IH Q4HP PRN 08/26/19 Allergies/Adverse Reactions: latex [Latex] Allergy (Severe, Verified 08/26/19 09:47) SKIN SWELLING Shellfish * [Shellfish] Allergy (Severe, Verified 08/26/19 09:47) Anaphylaxis Review of Systems All systems: reviewed and no additional remarkable complaints except as stated - As mentioned in HPI Physical Exam Vital Signs: Temp Pulse Resp BP Pulse Ox 98.8 F 101 H 18 128/81 H 94 08/26/19 16:00 08/26/19 16:00 08/26/19 16:00 08/26/19 16:00 08/26/19 16:00 Intake & Output 08/25/19 08/26/19 08/27/19 06:59 06:59 06:59 Intake Total 1050 Balance 1050 Weight 177 lb 11.081 oz General appearance: PRESENT: no acute distress, well-developed, well-nourished Head exam: PRESENT: atraumatic Eye exam: PRESENT: conjunctiva pink, EOMI, PERRLA. ABSENT: scleral icterus Ear exam: PRESENT: normal external ear exam Mouth exam: PRESENT: moist, tongue midline Neck exam: ABSENT: carotid bruit, JVD, lymphadenopathy, thyromegaly Respiratory exam: PRESENT: rhonchi, wheezes. ABSENT: rales Cardiovascular exam: PRESENT: RRR. ABSENT: diastolic murmur, rubs, systolic murmur Pulses: PRESENT: normal dorsalis pedis pul GI/Abdominal exam: PRESENT: normal bowel sounds, soft. ABSENT: distended, guarding, mass, organolmegaly, rebound, tenderness Rectal exam: PRESENT: deferred Extremities exam: PRESENT: full ROM. ABSENT: calf tenderness, clubbing, pedal edema Neurological exam: PRESENT: alert, awake, oriented to person, oriented to place, oriented to time, oriented to situation, CN II-XII grossly intact. ABSENT: motor sensory deficit Results Laboratory Results: 08/26/19 10:09 08/26/19 10:09 08/26/19 08/26/19 08/26/19 10:09 10:09 10:09 WBC 9.9 RBC 4.32 Hgb 12.3 Hct 37.3 MCV 86 MCH 28.4 MCHC 33.0 RDW 16.4 H Plt Count 236 Seg Neutrophils % 65.4 VBG pH VBG pCO2 VBG HCO3 VBG Base Excess Sodium 142.5 Potassium 3.7 Chloride 108 H Carbon Dioxide 25 Anion Gap 10 BUN 17 Creatinine 0.81 Est GFR ( Amer) > 60 Glucose 79 Calcium 9.5 Total Bilirubin 0.4 AST 15 Alkaline Phosphatase 83 Total Protein 6.5 Albumin 3.9 Urine Color YELLOW Urine Appearance CLEAR Urine pH 6.0 Ur Specific [place] 1.020 Urine Protein NEGATIVE Urine Glucose (UA) NEGATIVE Urine Ketones NEGATIVE Urine Blood NEGATIVE Urine RBC (Auto) 1 08/26/19 12:50 WBC RBC Hgb Hct MCV MCH MCHC RDW Plt Count Seg Neutrophils % VBG pH 7.43 H VBG pCO2 32.7 L VBG HCO3 21.4 VBG Base Excess -2.1 Sodium Potassium Chloride Carbon Dioxide Anion Gap BUN Creatinine Est GFR ( Amer) Glucose Calcium Total Bilirubin AST Alkaline Phosphatase Total Protein Albumin Urine Color Urine Appearance Urine pH Ur Specific [place] Urine Protein Urine Glucose (UA) Urine Ketones Urine Blood Urine RBC (Auto) 08/26/19 08/26/19 10:00 10:09 Troponin I < 0.012 NT-Pro-B Natriuret Pep 154 H Impressions: Chest X-Ray 08/26/19 10:06 IMPRESSION: NO ACUTE RADIOGRAPHIC FINDING IN THE CHEST. Chest/Abdomen CTA 08/26/19 13:00 IMPRESSION: Ground-glass opacities in the lung bases with focal consolidation in the left lower lobe. This may represent pulmonary edema. Developing pneumonia cannot be excluded. There is focal atelectasis in the lung bases as well. No pulmonary emboli. Assessment and Plan - Diagnosis (1) Asthma exacerbation Qualifiers: Asthma severity: moderate Is this a current diagnosis for this admission?: Yes Plan: Patient has failed outpatient steroids and azithromycin. Patient did present with significant bilateral wheezing and rhonchi. Will start patient on IV steroids and scheduled breathing treatments. (2) Pneumonia Is this a current diagnosis for this admission?: Yes Plan: We will start patient on Rocephin. Also ordered sputum culture. - Time Time Spent with patient: 25-34 minutes
--- NOTE | 2019-08-26 17:36 | ADVANCED CARE ---
- Diagnosis (1) Pneumonia Diagnosis Current: Yes (2) Asthma exacerbation Diagnosis Current: Yes Resuscitation Status: Full Code Discussion: Discussed with patient with at bedside. She says that she is a full code and prefers to receive chest compressions, defibrillation or mechanical ventilation if the need arises. She says that her Ian Teaguetory is her surrogate medical decision maker.
[2019-08-26] MEDS ORDERED: INFLUENZA QUAD (6MOS+) 2019-20 VAC 0.5 ML SYR IM ONE (19:44)
[2019-08-26] MEDS: IPRATROPIUM/ALBUTEROL 0.5-2.5 MG/3 ML AMPUL NEB SCH ×2 (20:12→23:58)
[2019-08-26] MEDS: HEPARIN SOD (PORCINE) 5,000 UNIT/ML 1 ML VIAL SUBCUT SCH (21:13)
[2019-08-26] MEDS: METHYLPREDNISOLONE INJ 40 MG/1 ML SDV IV SCH (21:13)
[2019-08-27] MEDS: IPRATROPIUM/ALBUTEROL 0.5-2.5 MG/3 ML AMPUL NEB SCH ×5 (04:30→20:42)
[2019-08-27] MEDS: HEPARIN SOD (PORCINE) 5,000 UNIT/ML 1 ML VIAL SUBCUT SCH ×3 (05:54→21:38)
[2019-08-27] MEDS: METHYLPREDNISOLONE INJ 40 MG/1 ML SDV IV SCH ×3 (05:57→21:35)
[2019-08-27] MEDS: CEFTRIAXONE 1 GM/D5W RTU 1 GM/50 ML RTUPB IV SCH (11:04)
--- NOTE | 2019-08-27 11:21 | PDOC PROGRESS REPORT ---
Subjective Progress Note for:: 08/27/19 Subjective:: This is a 29-year-old female who was admitted to pneumonia and severe asthma exacerbation that failed outpatient therapy. No acute event overnight. She says her shortness of breath has significantly improved today. Her bilateral wheezing has also improved this morning. Will reduce IV steroids to every 12. Reason For Visit: ASTHMA EXACERBATION Physical Exam Vital Signs: Temp Pulse Resp BP Pulse Ox 98.2 F 61 16 109/68 95 08/27/19 07:41 08/27/19 07:49 08/27/19 07:49 08/27/19 07:41 08/27/19 07:49 Intake & Output 08/26/19 08/27/19 08/28/19 06:59 06:59 06:59 Intake Total 1580 Balance 1580 Weight 176 lb 12.972 oz General appearance: PRESENT: no acute distress, well-developed, well-nourished Head exam: PRESENT: atraumatic, normocephalic Eye exam: PRESENT: conjunctiva pink, EOMI, PERRLA. ABSENT: scleral icterus Ear exam: PRESENT: normal external ear exam Mouth exam: PRESENT: moist, tongue midline Neck exam: ABSENT: carotid bruit, JVD, lymphadenopathy, thyromegaly Respiratory exam: PRESENT: wheezes. ABSENT: rales, rhonchi Cardiovascular exam: PRESENT: RRR. ABSENT: diastolic murmur, rubs, systolic murmur Pulses: PRESENT: normal dorsalis pedis pul GI/Abdominal exam: PRESENT: normal bowel sounds, soft. ABSENT: distended, guarding, mass, organolmegaly, rebound, tenderness Rectal exam: PRESENT: deferred Extremities exam: PRESENT: full ROM. ABSENT: calf tenderness, clubbing, pedal edema Neurological exam: PRESENT: alert, awake, oriented to person, oriented to place, oriented to time, oriented to situation, CN II-XII grossly intact. ABSENT: motor sensory deficit Results Laboratory Results: 08/26/19 10:09 08/26/19 10:09 08/26/19 12:50 VBG pH 7.43 H VBG pCO2 32.7 L VBG HCO3 21.4 VBG Base Excess -2.1 08/26/19 08/26/19 10:00 10:09 Troponin I < 0.012 NT-Pro-B Natriuret Pep 154 H Impressions: Chest X-Ray 08/26/19 10:06 IMPRESSION: NO ACUTE RADIOGRAPHIC FINDING IN THE CHEST. Chest/Abdomen CTA 08/26/19 13:00 IMPRESSION: Ground-glass opacities in the lung bases with focal consolidation in the left lower lobe. This may represent pulmonary edema. Developing pneumonia cannot be excluded. There is focal atelectasis in the lung bases as well. No pulmonary emboli. Assessment and Plan - Diagnosis (1) Asthma exacerbation Qualifiers: Asthma severity: moderate Is this a current diagnosis for this admission?: Yes Plan: Reduce IV Solu-Medrol to 40 mg daily. Continue scheduled breathing treatments. (2) Pneumonia Is this a current diagnosis for this admission?: Yes Plan: Continue Rocephin. - Time Time Spent with patient: 15-24 minutes
--- NOTE | 2019-08-27 22:03 | EKG REPORT ---
SEVERITY:- OTHERWISE NORMAL ECG - SINUS TACHYCARDIA : Confirmed by: Daryn Scanlon 27-Aug-2019 22:02:55
[2019-08-28] MEDS: IPRATROPIUM/ALBUTEROL 0.5-2.5 MG/3 ML AMPUL NEB SCH ×5 (00:42→16:02)
[2019-08-28] MEDS: HEPARIN SOD (PORCINE) 5,000 UNIT/ML 1 ML VIAL SUBCUT SCH ×2 (05:15→13:27)
[2019-08-28] MEDS: METHYLPREDNISOLONE INJ 40 MG/1 ML SDV IV SCH (05:30)
[2019-08-28] MEDS: CEFTRIAXONE 1 GM/D5W RTU 1 GM/50 ML RTUPB IV SCH (09:54)
[2019-08-28] MEDS ORDERED: PREDNISONE 20 MG TABLET PO SCH (10:00)
[2019-08-28 17:08] VITALS: BP 114/61
--- NOTE | 2019-08-28 17:09 | PDOC DISCHARGE SUMMARY ---
Impression - Admit/DC Date/PCP Admission Date/Primary Care Provider: 08/26/19 16:36 BRE HIGH MD Discharge Date: 08/28/19 - Discharge Diagnosis (1) Asthma exacerbation Is this a current diagnosis for this admission?: Yes (2) Pneumonia Is this a current diagnosis for this admission?: Yes - Additional Information Resuscitation Status: Full Code Referrals: BRE HIGH MD [Primary Care Provider] - Follow up as needed Prescriptions: Amox Tr/Potassium Clavulanate [Augmentin 875-125 mg Tablet] 1 tab PO BID 5 Days #10 tablet Prednisone [Deltasone 20 mg Tablet] 40 mg PO BID 5 Days #20 tablet Home Medications: Albuterol Sulfate [Proair HFA Inhalation Aerosol 8.5 gm MDI] 1 puff IH Q4HP PRN 08/26/19 Albuterol Sulfate [Ventolin 0.083% Neb 2.5 mg/3 mL Ampul] 1 vial NEB Q4HP PRN 08/26/19 Cetirizine HCl [Zyrtec 10 mg Tablet] 10 mg PO DAILY 08/26/19 Fluticasone Propionate [Flonase Nasal [place] 50 Mcg/[place] 16 gm] 1 spray NAREB DAILY 08/26/19 Fluticasone/Salmeterol [Advair 250-50 Diskus 14 Dose/Diskus] 1 inh IH Q12 08/26/19 Ipratropium/Albuterol Sulfate [Duoneb 3 ml Ampul] 3 ml IH Q4HP PRN 08/26/19 Amox Tr/Potassium Clavulanate [Augmentin 875-125 mg Tablet] 1 tab PO BID 5 Days #10 tablet 08/28/19 Prednisone [Deltasone 20 mg Tablet] 40 mg PO BID 5 Days #20 tablet 08/28/19 History of Present Illiness History of Present Illness: WESLEY CALDERA is a 29 year old female with a past medical history of asthma and questionable post cardiomyopathy who presented with persistent wheezing and shortness of breath. Patient reports that she has been having having wheezing and increasing shortness of breath for more than a week now. She was treated for asthma exacerbation by her PCP and was given a course of steroids. She says she did not improve and she was given another prescription of steroids and azithromycin for 5 days but she continues to have persistent wheezing and shortness of breath. She does report of associated moderately productive cough with whitish phlegm. In the ER, chest CTA was done which ruled out PE but did show possible left lower lobe pneumonia. Hospital Course Hospital Course: This is a 29-year-old female who was admitted to pneumonia and severe asthma exacerbation that failed outpatient therapy. CT did show possible left lower lobe pneumonia. Patient was started on IV steroids and scheduled breathing treatments. She was also started on Rocephin. She did respond to the above treatments and return to her baseline. IV steroids were then switched to prednisone. On day of discharge, she had minimal wheezing. Apparently, they been doing a lot of work at home causing a lot of dusting. Patient does report that she is very sensitive to dust and is thus trigger her asthma to. Counseled in length to refrain from dust exposure. She says this will be challenging as there moving in the next few days. Advised patient to use mask all the time at home. She will be discharged on 5 more days of prednisone. Physical Exam Vital Signs: Temp Pulse Resp BP Pulse Ox 97.6 F 82 16 125/65 94 08/28/19 11:25 08/28/19 11:30 08/28/19 11:30 08/28/19 11:25 08/28/19 11:30 Intake & Output 08/27/19 08/28/19 08/29/19 06:59 06:59 06:59 Intake Total 1580 1188 Balance 1580 1188 Weight 176 lb 12.972 oz 179 lb 0.246 oz General appearance: PRESENT: no acute distress, well-developed, well-nourished Head exam: PRESENT: atraumatic, normocephalic Eye exam: PRESENT: conjunctiva pink, EOMI, PERRLA. ABSENT: scleral icterus Ear exam: PRESENT: normal external ear exam Mouth exam: PRESENT: moist, tongue midline Neck exam: ABSENT: carotid bruit, JVD, lymphadenopathy, thyromegaly Respiratory exam: PRESENT: rhonchi, wheezes - mimimal. ABSENT: rales Cardiovascular exam: PRESENT: RRR. ABSENT: diastolic murmur, rubs, systolic murmur Pulses: PRESENT: normal dorsalis pedis pul GI/Abdominal exam: PRESENT: normal bowel sounds, soft. ABSENT: distended, guarding, mass, organolmegaly, rebound, tenderness Rectal exam: PRESENT: deferred Extremities exam: PRESENT: full ROM. ABSENT: calf tenderness, clubbing, pedal edema Neurological exam: PRESENT: alert, awake, oriented to person, oriented to place, oriented to time, oriented to situation, CN II-XII grossly intact. ABSENT: motor sensory deficit Results Laboratory Results: WBC 9.9 10^3/uL (4.0-10.5) 08/26/19 10:09 RBC 4.32 10^6/uL (3.72-5.28) 08/26/19 10:09 Hgb 12.3 g/dL (12.0-15.5) 08/26/19 10:09 Hct 37.3 % (36.0-47.0) 08/26/19 10:09 MCV 86 fl (80-97) 08/26/19 10:09 MCH 28.4 pg (27.0-33.4) 08/26/19 10:09 MCHC 33.0 g/dL (32.0-36.0) 08/26/19 10:09 RDW 16.4 % (11.5-14.0) H 08/26/19 10:09 Plt Count 236 10^3/uL (150-450) 08/26/19 10:09 Lymph % (Auto) 27.7 % (13-45) 08/26/19 10:09 [place] % (Auto) 6.0 % (3-13) 08/26/19 10:09 Eos % (Auto) 0.5 % (0-6) 08/26/19 10:09 Baso % (Auto) 0.4 % (0-2) 08/26/19 10:09 Absolute Neuts (auto) 6.5 10^3/uL (1.7-8.2) 08/26/19 10:09 Absolute Lymphs (auto) 2.7 10^3/uL (0.5-4.7) 08/26/19 10:09 Absolute Monos (auto) 0.6 10^3/uL (0.1-1.4) 08/26/19 10:09 Absolute Eos (auto) 0.1 10^3/uL (0.0-0.6) 08/26/19 10:09 Absolute Basos (auto) 0.0 10^3/uL (0.0-0.2) 08/26/19 10:09 Seg Neutrophils % 65.4 % (42-78) 08/26/19 10:09 D-Dimer 1.96 ug/mL (0.00-0.50) H 08/26/19 10:00 VBG pH 7.43 (7.30-7.42) H 08/26/19 12:50 VBG pCO2 32.7 mmHg (35-63) L 08/26/19 12:50 VBG HCO3 21.4 mmol/L (20-32) 08/26/19 12:50 VBG Base Excess -2.1 mmol/L 08/26/19 12:50 Sodium 142.5 mmol/L (137-145) 08/26/19 10:09 Potassium 3.7 mmol/L (3.6-5.0) 08/26/19 10:09 Chloride 108 mmol/L (98-107) H 08/26/19 10:09 Carbon Dioxide 25 mmol/L (22-30) 08/26/19 10:09 Anion Gap 10 (5-19) 08/26/19 10:09 BUN 17 mg/dL (7-20) 08/26/19 10:09 Creatinine 0.81 mg/dL (0.52-1.25) 08/26/19 10:09 Est GFR ( Amer) > 60 (>60) 08/26/19 10:09 Est GFR (MDRD) Non-Af > 60 (>60) 08/26/19 10:09 Glucose 79 mg/dL (75-110) 08/26/19 10:09 Calcium 9.5 mg/dL (8.4-10.2) 08/26/19 10:09 Total Bilirubin 0.4 mg/dL (0.2-1.3) 08/26/19 10:09 Direct Bilirubin 0.1 mg/dL (0.0-0.4) 08/26/19 10:09 Neonat Total Bilirubin Not Reportable 08/26/19 10:09 Neonat Direct Bilirubin Not Reportable 08/26/19 10:09 Neonat Indirect Bili Not Reportable 08/26/19 10:09 AST 15 U/L (14-36) 08/26/19 10:09 ALT 15 U/L (<35) 08/26/19 10:09 Alkaline Phosphatase 83 U/L (38-126) 08/26/19 10:09 Troponin I < 0.012 ng/mL 08/26/19 10:09 NT-Pro-B Natriuret Pep 154 pg/mL (<125) H 08/26/19 10:00 Total Protein 6.5 g/dL (6.3-8.2) 08/26/19 10:09 Albumin 3.9 g/dL (3.5-5.0) 08/26/19 10:09 Urine Color YELLOW 08/26/19 10:09 Urine Appearance CLEAR 08/26/19 10:09 Urine pH 6.0 (5.0-9.0) 08/26/19 10:09 Ur Specific [place] 1.020 08/26/19 10:09 Urine Protein NEGATIVE mg/dL (NEGATIVE) 08/26/19 10:09 Urine Glucose (UA) NEGATIVE mg/dL (NEGATIVE) 08/26/19 10:09 Urine Ketones NEGATIVE mg/dL (NEGATIVE) 08/26/19 10:09 Urine Blood NEGATIVE (NEGATIVE) 08/26/19 10:09 Urine Nitrite (Reflex) NEGATIVE (NEGATIVE) 08/26/19 10:09 Urine Bilirubin NEGATIVE (NEGATIVE) 08/26/19 10:09 Urine Urobilinogen NEGATIVE mg/dL (<2.0) 08/26/19 10:09 Leukocyte Esterase Rfl TRACE (NEGATIVE) H 08/26/19 10:09 Urine RBC (Auto) 1 /HPF 08/26/19 10:09 Urine WBC (Reflex) 1 /HPF 08/26/19 10:09 Squamous Epi Cells Auto 3 /HPF 08/26/19 10:09 Urine Mucus (Auto) FEW /LPF 08/26/19 10:09 Urine Ascorbic Acid NEGATIVE (NEGATIVE) 08/26/19 10:09 08/26/19 08/26/19 10:00 10:09 Troponin I < 0.012 NT-Pro-B Natriuret Pep 154 H Impressions: Chest X-Ray 08/26/19 10:06 IMPRESSION: NO ACUTE RADIOGRAPHIC FINDING IN THE CHEST. Chest/Abdomen CTA 08/26/19 13:00 IMPRESSION: Ground-glass opacities in the lung bases with focal consolidation in the left lower lobe. This may represent pulmonary edema. Developing pneumonia cannot be excluded. There is focal atelectasis in the lung bases as well. No pulmonary emboli. Stroke Is this a Stroke Patient?: No Acute Heart Failure - Is this a Heart Failure Patient?: No
== END 2019-08-28 17:39 | disposition home or self-care (01) ==
LOC: ER 09:37 → EH 16:36 → 4N 18:19
PROVIDERS: ADMIT Internal Medicine; ATTEND Internal Medicine
DX: J45.901 Unspecified asthma with (acute) exacerbation (principal); J18.9 Pneumonia, unspecified organism; I50.9 Heart failure, unspecified; R00.0 Tachycardia, unspecified; Z86.14 Personal history of Methicillin resistant Staphylococcus aureus infection; Z82.49 Family history of ischemic heart disease and other diseases of the circulatory system; Z79.899 Other long term (current) drug therapy; R79.89 Other specified abnormal findings of blood chemistry; Z91.040 Latex allergy status; Z91.013 Allergy to seafood; Z87.892 Personal history of anaphylaxis
CPT/HCPCS: 93005; 94640 ×5; 99285; 36415; 87040; 87086; 84443; 85025; 87088; 80053; 81001; 84484; 85379; 82803; 83880; 71046; 71275; 93010; G0378 ×4; J3490 ×4; J2920 ×3; J2930; J3475; J7512; J7030; J0696 ×3; J7620 ×3